=== PATIENT | male | born 1955 | race Caucasian/White ===

== ENCOUNTER → 2018-06-26 14:48 | Outpatient (CLI) | payer BC, SELFPAY ==
--- NOTE | 2018-06-26 15:02 | EKG12_ITS ---
Test Reason : PREOP Blood Pressure : / mmHG Vent. Rate : 059 BPM Atrial Rate : 059 BPM P-R Int : 156 ms QRS Dur : 086 ms QT Int : 428 ms P-R-T Axes : 064 -19 045 degrees QTc Int : 423 ms Sinus bradycardia Minimal voltage criteria for LVH, may be normal variant Borderline ECG Confirmed by ERWIN MITTAL ([id number]), publication editor SAMANTHA RAMIREZ ([id number]) on 06/30/2018 2:33:07 PM Referred By: Giovany Chao Confirmed By:ERWIN MITTAL
[2018-06-26 15:33] LABS: Hematocrit 42.6 % (40-54); Hemoglobin 14.3 g/dl (13.0-16.5); Mean Corp Hgb Conc 33.6 g/gl (32-36); Mean Corpuscular Hgb 30.6 pg (27.0-32.0); Mean Corpuscular Volume 91.2 fL (80-94); Mean Platelet Vol. 9.4 fl (6.2-12.0); Platelet Count 203 K/mm3 (150-450); RBC Distribution Width CV 12.9 % (11.6-14.6); RBC Distribution Width SD 42.8 fl (35.1-43.9); Red Blood Count 4.67 M/mm3 (4.6-6.2); White Blood Count 6.8 K/mm3 (4.4-11.0)
[2018-06-26 15:36] LABS: Scan Indicated on CBC? Y/N NO
[2018-06-26 16:00] LABS: Anion Gap 6 (5-15); BUN 32 mg/dL (7-18); BUN/Creat Ratio 27.1 RATIO (10-20); Calcium,Total 8.6 mg/dL (8.5-10.1); Chloride 105 mmol/L (98-107); Creatinine, Serum 1.18 mg/dL (0.70-1.30); EST Glomerular Filtration Rate 66 mL/min (>60); Est Glom Filt Rate - Afr Amer 80 mL/min (>60); Glucose 92 mg/dL (74-106); Potassium 4.3 mmol/L (3.5-5.1); Sodium Level 139 mmol/L (136-145)
== END ==
PROVIDERS: Referring Provider Physician Assistant; Visit Provider Physician Assistant
DX: Z01.818 Encounter for other preprocedural examination (principal); Z01.810 Encounter for preprocedural cardiovascular examination
CPT/HCPCS: 36415; 80048; 85027; 93005

== ENCOUNTER → 2018-12-12 13:54 | Outpatient (CLI) | payer OTHER, BC, SELFPAY ==
[2015-01-29 19:59] VITALS: BMI 24.7
--- NOTE | 2018-12-12 14:30 | EKG12_ITS ---
Test Reason : PRE OP Blood Pressure : / mmHG Vent. Rate : 049 BPM Atrial Rate : 049 BPM P-R Int : 142 ms QRS Dur : 100 ms QT Int : 424 ms P-R-T Axes : 025 -07 038 degrees QTc Int : 383 ms Sinus bradycardia Otherwise normal ECG Confirmed by ROBBY MARTÍNEZ, INEZ ([id number]), editor in chief newspaper SAMANTHA RAMIREZ ([id number]) on 12/15/2018 3:35:37 PM Referred By: Giovany Chao Confirmed By:INEZ BUSTAMANTE MD
[2018-12-12 14:50] LABS: Hematocrit 41.6 % (40-54); Hemoglobin 14.2 g/dl (13.0-16.5); Mean Corp Hgb Conc 34.1 g/gl (32-36); Mean Corpuscular Hgb 30.7 pg (27.0-32.0); Mean Platelet Vol. 9.4 fl (6.2-12.0); Platelet Count 189 K/mm3 (150-450); RBC Distribution Width CV 12.8 % (11.6-14.6); RBC Distribution Width SD 42.2 fl (35.1-43.9); Red Blood Count 4.62 M/mm3 (4.6-6.2); White Blood Count 5.1 K/mm3 (4.4-11.0)
[2018-12-12 14:55] LABS: Scan Indicated on CBC? Y/N NO
[2018-12-12 15:06] LABS: Anion Gap 3 (5-15); BUN 27 mg/dL (7-18); BUN/Creat Ratio 22.3 RATIO (10-20); Calcium,Total 8.5 mg/dL (8.5-10.1); Chloride 108 mmol/L (98-107); Creatinine, Serum 1.21 mg/dL (0.70-1.30); EST Glomerular Filtration Rate 64 mL/min (>60); Est Glom Filt Rate - Afr Amer 78 mL/min (>60); Glucose 92 mg/dL (74-106); Potassium 4.3 mmol/L (3.5-5.1); Sodium Level 139 mmol/L (136-145)
== END ==
PROVIDERS: Referring Provider Physician Assistant; Visit Provider Physician Assistant
DX: Z01.818 Encounter for other preprocedural examination (principal); Z01.810 Encounter for preprocedural cardiovascular examination
CPT/HCPCS: 36415; 80048; 85027; 93005

== ENCOUNTER 2021-03-03 14:20 | Emergency (ER) | payer BC, SELFPAY ==
[2021-03-03 14:21] VITALS: BP 149/94; PULSE 67; RESP 16; TEMP 36.3; O2SAT 98; BMI 27.2
--- NOTE | 2021-03-03 14:42 | EDS_ITS ---
HPI History of Present Illness Chief Complaint: Wound Narrative Narrative: Patient presented with 2 days of erythema and pain on the left gluteal region. Patient denies any trauma. Patient states he woke up with the redness. Patient showed his daughter who stated he might have been bitten by a spider. He states he is otherwise healthy and runs every day. He feels fine physically. No fever or chills. No history of MRSA. PFSH PFSH Home Medications hydrocodone-acetaminophen 1 tab PO Q4H PRN PRN #10 tablet 12/30/14 [Rx Last Taken Unknown] etodolac 300 mg PO TIDCM #30 capsule 01/29/15 [Rx Last Taken Unknown] cephalexin 1,000 mg PO Q6H 7 Days #56 cap 03/03/21 [Rx Last Taken Unknown] Allergy/AdvReac Type Severity Reaction Status Date / Time No Known Allergies Allergy Verified 03/03/21 14:23 Social History Smoking Status: Former smoker EXAM Physical Exam Const Vital Signs: 03/03/21 14:21 Temperature 97.3 F L Temperature Source Temporal Pulse Rate 67 Respiratory Rate 16 Blood Pressure 149/94 H Blood Pressure Mean 112 Pulse Ox 98 Oxygen Delivery Method Room Air Positive well nourished General Appearance ED: NAD HEENT Reports moist mucous membranes Negative for trauma Eyes PERRL and EOMs intact bilaterally Resp normal respiratory effort, no retractions and no use of accessory muscles Cardio regular rate and regular rhythm Neuro oriented x3 and CN's II-XII intact bilaterally Sensorium / Orientation: alert Psych mental status grossly normal Skin Skin Narrative: 5 cm circular area of erythema and induration on the left g luteal region. There is no fluctuant mass. MDM MDM MDM Narrative Medical decision making narrative: Patient has cellulitis on the left gluteal region. He does not have any allergies to medication. No history of MRSA. He be started on Keflex for home. Patient given first dose in the ED. Patient given wound care instructions and return precautions. Impression: 1. Left gluteal cellulitis Discharge Plan Triage Chief Complaint: Wound ED Provider: Ulises Gonzalez Dx/Rx/DC Orders Instructions: ED Cellulitis Prescriptions: New cephalexin 500 mg capsule 1,000 mg PO Q6H 7 Days Qty: 56 RF: 0 No Action hydrocodone-acetaminophen 1 TABLET tablet 1 tab PO Q4H PRN PRN (Reason: Pain) Qty: 10 RF: 0 etodolac 300 MG capsule 300 mg PO TIDCM Qty: 30 RF: 0 Primary Care Provider: Care Physician,No Primary Referrals: Care Physician,No Primary [Primary Care Provider] - Disposition Disposition: Home, Self Care
[2021-03-03] MEDS: Cephalexin 250 MG Capsule 500 MG PO (14:44)
== END 2021-03-03 15:02 | disposition home or self-care (01) ==
LOC: ED 14:51
PROVIDERS: Emergency Provider Student in an Organized Health Care Education/Training Program
DX: L03.317 Cellulitis of buttock (principal); Z87.891 Personal history of nicotine dependence
CPT/HCPCS: 99283

== ENCOUNTER 2024-08-09 09:02 | Emergency (ER) | payer OTHER, BC, SELFPAY ==
[2024-08-09 09:02] VITALS: BP 171/95; PULSE 58; RESP 19; TEMP 36.3; O2SAT 100; BMI 30.6
--- NOTE | 2024-08-09 09:17 | EDS_ITS ---
HPI History of Present Illness Chief Complaint: Flank Pain Informant: patient Onset/Context/Timing Onset: Yesterday Context: Sudden Onset Timing: Continuous Quality: Sharp, stabbing Location: Right flank Worsened by: Movement, standing Relieved by: Nothing Narrative Narrative: Patient presents with right flank pain began yesterday. Patient states it began rather suddenly. Patient states it has been constant. Patient describes it as sharp and stabbing. Patient states it is worse with certain movements such as standing. Patient states nothing seems to help with the pain. Patient denies any trauma or injury. Patient denies any fevers or chills. Patient denies any nausea or vomiting. Patient denies any urinary complaints. [facility] Medical History (Updated 08/09/24 @ 11:[address] Talat Hayden DO) Atrial fibrillation Hypertension Home Medications ?Medication ?Instructions ?Recorded ?Last Taken ?Type amlodipine 5 mg tablet 5 mg PO DAILY 08/09/24 Unknown History atorvastatin 10 mg tablet 10 mg PO DAILY 08/09/24 Unknown History lisinopril 20 mg tablet 20 mg PO DAILY 08/09/24 Unknown History rivaroxaban 20 mg tablet (Xarelto) 20 mg PO DAILY 08/09/24 Unknown History Allergy/AdvReac Type Severity Reaction Status Date / Time No Known Allergies Allergy Verified 03/03/21 14:23 Surgical History Hx of hemorrhoidectomy Hx of arthroscopic knee surgery Hx of shoulder surgery Social History Smoking Status: Never smoker ROS ROS ED Constitutional Constitutional ED: Denies chills or fever(s) Eyes Eyes: Denies blurry vision or change in vision ENT ENT ED: Denies rhinorrhea or sore throat Cardiovascular Cardiovascular: Denies chest pain or palpitations Respiratory/Chest Respiratory/Chest: Denies cough or dyspnea Gastrointestinal Gastrointestinal: Denies nausea or vomiting Genitourinary Genitourinary ED: Denies dysuria or hematuria Musculoskeletal Musculoskeletal: Reports back pain and neck pain Integumentary Denies abscess or rash Neurologic Neurologic: Denies headache(s) or weakness Allergic/Immunologic Allergic/Immunologic ED: Denies mouth swelling or urticaria EXAM Physical Exam Const Vital Signs: 08/09/24 09:02 08/09/24 11:02 Temperature 97.4 F L Temperature Source Temporal Pulse Rate 58 L 89 Respiratory Rate 19 H Blood Pressure 171/95 H 167/86 H Blood Pressure Mean 120 113 Pulse Ox 100 98 Positive well nourished and well developed General Appearance ED: well developed and NAD HEENT Reports moist mucous membranes Neck supple and no JVD Resp normal respiratory effort and clear to auscultation bilaterally Cardio regular rate and regular rhythm GI non-tender and non-distended Palpation: soft Extremity General Extremety ED: Negative for edema or tenderness General Extremity: Negative for edema Neuro oriented x3, CN's II-XII intact bilaterally and no sensory deficits noted Sensorium / Orientation: alert Motor Exam: strength 5/5 throughout Psych mental status grossly normal MDM MDM MDM Narrative Medical decision making narrative: Differential diagnosis includes ureteral calculus, pyelonephritis, cholecystitis, cholelithiasis, colitis, and muscular strain. CBC will be obtained to assess for leukocytosis and anemia. Comprehensive metabolic profile will be obtained to assess for hepatic function, renal function, and electrolyte abnormality. Urinalysis will be obtained to assess for urinary tract infection and hematuria. CT scan of the abdomen and pelvis will be obtained to assess for ureteral calculus, colitis, cholecystitis, and cholelithiasis. Lab Data Attestation: I reviewed the patient's lab results. Lab results narrative: CBC was reviewed and was within normal limits. Comprehensive metabolic profile was reviewed. BUN was slightly elevated at 27. The remainder is within normal limits. Lipase was reviewed and was mildly elevated at 127. Urinalysis was reviewed. There is no evidence of urinary tract infection or hematuria. Labs: Laboratory Results - last 24 hr 08/09/24 08/09/24 09:13 09:35 WBC 6.9 RBC 4.69 Hgb 14.6 Hct 42.6 MCV 90.8 MCH 31.1 MCHC 34.3 RDW Std Deviation 42.4 RDW Coeff of [place] 12.9 Plt Count 223 MPV 9.4 Immature Gran % (Auto) 0.100 Neut % (Auto) 50.6 Lymph % (Auto) 34.2 [place] % (Auto) 10.1 H Eos % (Auto) 4.3 Baso % (Auto) 0.7 Absolute Neuts (auto) 3.5 Absolute Lymphs (auto) 2.36 Nucleated RBC % 0 Sodium 139 Potassium 4.4 Chloride 106 Carbon Dioxide 27.0 Anion Gap 6 BUN 27 H Creatinine 1.11 Estim Creat Clear Calc 73.34 Est GFR (MDRD) Af Amer 84 Est GFR (MDRD) Non-Af 70 BUN/Creatinine Ratio 24.3 H Glucose 101 Calcium 8.7 Total Bilirubin 0.90 AST 24 ALT 30 Alkaline Phosphatase 63 Total Protein 7.0 Albumin 3.6 Globulin 3.4 Albumin/Globulin Ratio 1.1 Lipase 127 H Urine Color Yellow Urine Clarity Clear Urine pH 6.0 Ur Specific [place] 1.020 Urine Protein Negative Urine Glucose (UA) Normal Urine Ketones Negative Urine Occult Blood Negative Urine Nitrite Negative Urine Bilirubin Negative Urine Urobilinogen Normal Ur Leukocyte Esterase Negative Urine RBC 0 SEEN Urine WBC 0 SEEN Ur Squamous Epith Cells 0 SEEN Amorphous Sediment 1+ Urine Bacteria 1+ Urine Mucus 0 SEEN Radiography Diagnostic Testing: Clinical Impression(s) from Imaging Studies Abdomen/Pelvis CT 08/09/24 09:23 IMPRESSION: No suspicious solid organ abnormality, specifically, no obstructive uropathy or suspicious solid renal lesion. No free peritoneal fluid, air, or suspicious adenopathy, normal appendix visualized Degenerative bony changes Electronically Signed: Musa Lyon MD at 10:33 EST Reading Location ID and State: [id number] , Service support , CT scan of the abdomen and pelvis was obtained. There is no acute abnormality noted. There is no free air or free fluid. There are some degenerative bony changes. This was interpreted by the radiologist and was also independently reviewed by myself. Treatment and Re-Evaluation :: Patient was given IV fluids, morphine, and Zofran. Patient was advised of his findings. Patient was advised that this could be a early pancreatitis. Patient was instructed to start with a clear liquid diet and advance as tolerated. Patient was instructed to follow-up with his primary care physician in 5 to 7 days. Patient understood and was agreeable with the plan. All questions were answered. Discharge Plan Triage Chief Complaint: Flank Pain ED Provider: Talat Hayden Dx/Rx/DC Orders Clinical Impression: Acute right flank pain, Elevated lipase Instructions: ED Flank Pain, Uncertain Cause, ED Pancreatitis Prescriptions: No Action atorvastatin 10 mg tablet 10 mg PO DAILY lisinopril 20 mg tablet 20 mg PO DAILY amlodipine 5 mg tablet 5 mg PO DAILY Xarelto 20 mg tablet 20 mg PO DAILY [facility] [Primary Care Provider] - 5-7 Days Print Language: Austrian Disposition Disposition: Home, Self Care
--- NOTE | 2024-08-09 09:23 | CT_ITS ---
STUDY: CT ABDOMEN AND PELVIS WITHOUT CONTRAST REASON FOR EXAM: Male, 68 years old. Pain RADIATION DOSAGE (If Supplied By Facility): CTDIvol = ( 11.94 ) mGy, DLP = ( 581.47 ) mGycm TECHNIQUE: Transaxial images were obtained from the dome of the diaphragm to the symphysis pubis without oral contrast, and without intravenous contrast. Sagittal and coronal images were reconstructed. Individualized dose optimization techniques were used for this CT. COMPARISON: 2012 FINDINGS: Lung molina show stable fibrotic scar in the right middle lobe. The visualized portions of the heart are within normal limits. Normal liver. Normal gallbladder and extrahepatic biliary system. Normal spleen. Normal pancreas. Normal bilateral adrenal glands. Normal right kidney. Normal left kidney. There is a small hiatal hernia. Normal small intestine. Normal colon. The appendix is visualized and appears normal. Appendix seen on coronal recon images 65 through 72 Normal abdominal aorta. Normal inferior vena cava. Normal retroperitoneum. Normal urinary bladder. There are prostatic calcifications. Normal abdominal wall. There are diffuse degenerative changes of the visualized lumbar spine, and pelvis. CT/Abdomen/Pelvis without Cont IMPRESSION: No suspicious solid organ abnormality, specifically, no obstructive uropathy or suspicious solid renal lesion. No free peritoneal fluid, air, or suspicious adenopathy, normal appendix visualized Degenerative bony changes Electronically Signed: Musa Lyon MD at 10:33 EST ,
[2024-08-09] MEDS: Ondansetron 4 MG/2 ML Vial IV (09:34)
[2024-08-09] MEDS: 0.9% Normal Saline (1000mL) 1,000 ML 999 ML IV (09:34)
[2024-08-09] MEDS: Morphine 4 MG/ML Syringe IV (09:34)
[2024-08-09 09:43] LABS: Absolute Lymphocyte Count 2.36 X10^3/uL (0.83-4.51); Absolute Neutrophil Count 3.5 X10^3/uL (2.0-7.7); Basophil# 0.05 X10^3/uL; Basophil% 0.7 % (0-1); Eosinophils% 4.3 % (0-5); Hematocrit 42.6 % (40-54); Hemoglobin 14.6 g/dL (13.0-16.5); Lymphocyte # 2.36 X10^3/ul (0.83-4.51); Lymphocyte % 34.2 % (19-41); Mean Corp Hgb Conc 34.3 g/dL (32-36); Mean Corpuscular Hgb 31.1 pg (27.0-32.0); Mean Corpuscular Volume 90.8 fL (80-94); Mean Platelet Vol. 9.4 fl (6.2-12.0); Monocyte% 10.1 % (0-10); NRBC Flagged by Analyzer 0 % (0-5); Neutrophil # 3.48 X10^3/uL (2.7-7.7); Neutrophil % 50.6 % (47-70); Platelet Count 223 K/mm3 (150-450); RBC Distribution Width CV 12.9 % (11.6-14.6); RBC Distribution Width SD 42.4 fl (35.1-43.9); Red Blood Count 4.69 M/mm3 (4.6-6.2); White Blood Count 6.9 K/mm3 (4.4-11.0)
[2024-08-09 09:47] LABS: Mucous, Urine 0 SEEN /hpf (<or=2+); Red Blood Cells-Urine 0 SEEN /hpf (0-5); Squamous Epithelial Cells - UA 0 SEEN /hpf (0-5); White Blood Cells 0 SEEN /hpf (0-5)
[2024-08-09 09:50] LABS: Color, Urine Yellow (Yellow); Glucose, Dipstick Normal (Normal); Ketone-Dipstick Negative (Negative); Leukocyte Esterase-Dipstick Negative /ul (Negative); Nitrite-Dipstick Negative (Negative); Occult Blood-Urine Negative /ul (Negative); Protein-Dipstick Negative (Negative); Urine Bilirubin Dipstick Negative (Negative); Urine Clarity Clear (Clear); Urine Urobilinogen Normal (Normal)
[2024-08-09 09:55] LABS: ALB/GLOB Ratio 1.1 RATIO (0.9-2.4); AST(SGOT) 24 U/L (15-37); Alanine Aminotransfer ALT/SGPT 30 U/L (16-61); Albumin, Serum 3.6 g/dL (3.2-5.0); Alkaline Phosphatase 63 U/L (45-117); Anion Gap 6 (5-15); BUN 27 mg/dL (7-18); BUN/Creat Ratio 24.3 RATIO (10-20); Calcium,Total 8.7 mg/dL (8.5-10.1); Chloride 106 mmol/L (98-107); Creatinine, Serum 1.11 mg/dL (0.70-1.30); EST Glomerular Filtration Rate 70 mL/min (>60); Est Glom Filt Rate - Afr Amer 84 mL/min (>60); Estimated Creatinine Clearance 73.34 ml/min; Globulin 3.4 g/dL (2.2-4.2); Glucose 101 mg/dL (74-106); Lipase 127 U/L (13-75); Potassium 4.4 mmol/L (3.5-5.1); Sodium Level 139 mmol/L (136-145)
[2024-08-09 10:00] LABS: Amorphous Sediment 1+; Bacteria 1+ /hpf (None Seen)
[2024-08-09 11:02] VITALS: BP 167/86; PULSE 89; O2SAT 98
[2024-08-09] MEDS: HYDROcodone Bitartrate/Apap 5/325 Tablet PO (11:52)
[2024-08-09 11:53] VITALS: BP 167/86; PULSE 89; RESP 16; TEMP 36.6; O2SAT 98
== END 2024-08-09 11:55 | disposition home or self-care (01) ==
PROVIDERS: Emergency Provider Emergency Medicine; Visit Provider Emergency Medicine
DX: R10.9 Unspecified abdominal pain (principal); I48.91 Unspecified atrial fibrillation; R74.8 Abnormal levels of other serum enzymes; I10 Essential (primary) hypertension; Z79.01 Long term (current) use of anticoagulants; Z79.899 Other long term (current) drug therapy
CPT/HCPCS: 74176; 80053; 81001; 83690; 85025; 96361; 96374; 96375; 99283; A4216; J2405

== ENCOUNTER → 2024-09-18 | Outpatient (CLI) | payer BC, SELFPAY ==
[2024-09-18 10:55] LABS: Absolute Lymphocyte Count 2.38 X10^3/uL (0.83-4.51); Absolute Neutrophil Count 3.4 X10^3/uL (2.0-7.7); Basophil# 0.05 X10^3/uL; Basophil% 0.8 % (0-1); Eosinophil# 0.22 X10^3/uL; Eosinophils% 3.4 % (0-5); Hemoglobin 14.3 g/dL (13.0-16.5); Lymphocyte # 2.38 X10^3/ul (0.83-4.51); Lymphocyte % 36.3 % (19-41); Mean Corp Hgb Conc 34.9 g/dL (32-36); Mean Corpuscular Volume 88.9 fL (80-94); Mean Platelet Vol. 8.9 fl (6.2-12.0); Monocyte# 0.53 X10^3/uL; Monocyte% 8.1 % (0-10); NRBC Flagged by Analyzer 0 % (0-5); Neutrophil # 3.36 X10^3/uL (2.7-7.7); Neutrophil % 51.1 % (47-70); Platelet Count 231 K/mm3 (150-450); RBC Distribution Width CV 12.6 % (11.6-14.6); RBC Distribution Width SD 40.9 fl (35.1-43.9); Red Blood Count 4.61 M/mm3 (4.6-6.2); White Blood Count 6.6 K/mm3 (4.4-11.0)
[2024-09-18 11:31] LABS: Anion Gap 5 (5-15); BUN 21 mg/dL (7-18); BUN/Creat Ratio 21.4 RATIO (10-20); Calcium,Total 8.8 mg/dL (8.5-10.1); Chloride 108 mmol/L (98-107); Creatinine, Serum 0.98 mg/dL (0.70-1.30); EST Glomerular Filtration Rate 80 mL/min (>60); Est Glom Filt Rate - Afr Amer 97 mL/min (>60); Glucose 99 mg/dL (74-106); Potassium 4.2 mmol/L (3.5-5.1); Sodium Level 139 mmol/L (136-145)
== END | disposition home or self-care (01) ==
PROVIDERS: Referring Provider Physician Assistant Surgical; Visit Provider Physician Assistant Surgical
DX: Z01.818 Encounter for other preprocedural examination (principal)
CPT/HCPCS: 36415; 80048; 85025

== ENCOUNTER 2024-11-14 19:47 | Emergency (ER) | payer OTHER, SELFPAY ==
[2024-11-14 19:48] VITALS: BP 165/89; PULSE 79; RESP 16; TEMP 36.8; O2SAT 98; BMI 31.1
--- NOTE | 2024-11-14 20:09 | EDS_ITS ---
HPI HPI - URI History of Present Illness Chief Complaint: Ear Problem Informant: patient and spouse/S.O. Onset/Context/Timing Onset: Today Context: Gradual Onset Timing: Continuous Current Severity: Mild Maximum Severity: Mild Narrative Narrative: 68-year-old male history of A-fib on Xarelto, hypertension and recent left shoulder rotator cuff repair surgery. Since the night around dinner around 6:00 he developed right ear pain. Denies any trauma. No drainage or discharge. Said he has not had an ear infection since he was a young boy. Denies any other complaints. No sore throat. No trouble swallowing. No cough. Prior similar symptoms: Yes Recent Illness/Hospitalization: No ROS ROS ED ROS Narrative Right ear ache only. Constitutional Constitutional ED: Denies chills or fever(s) Eyes Eyes: Denies blurry vision ENT ENT ED: Denies ear pain, rhinorrhea or sore throat Cardiovascular Cardiovascular: Denies chest pain or palpitations Respiratory/Chest Respiratory/Chest: Denies cough, dyspnea or dyspnea on exertion Gastrointestinal Gastrointestinal: Denies abdominal pain, constipation, diarrhea, melena, nausea or vomiting Genitourinary Genitourinary ED: Denies dysuria or hematuria Musculoskeletal Musculoskeletal: Denies arthralgias, back pain, myalgias or neck pain Integumentary Denies abscess, Abrasions or rash Neurologic Neurologic: Denies headache(s) Psychiatric Psychiatric: Denies anxiety or depression Endocrine Endocrinology: Denies cold intolerance, heat intolerance, polydipsia or polyphagia Hematologic/Lymphatic Hematologic/Lymphatic: Denies lymphadenopathy Allergic/Immunologic Allergic/Immunologic ED: Reports urticaria; Denies mouth swelling or tongue swelling [facility] Medical History Atrial fibrillation Hypertension Home Medications ?Medication ?Instructions ?Recorded ?Last Taken ?Type amlodipine 5 mg tablet 5 mg PO DAILY 08/09/24 Unkno wn History atorvastatin 10 mg tablet 10 mg PO DAILY 08/09/24 Unkn own History lisinopril 20 mg tablet 20 mg PO DAILY 08/09/24 Unkn own History rivaroxaban 20 mg tablet (Xarelto) 20 mg PO DAILY 07/20 10/12 Unknown History amoxicillin 875 mg tablet 875 mg PO BID 10 days #20 ta bs 11/14/24 Unknown Rx Allergy/AdvReac Type Severity Reaction Status Date / Time No Known Allergies Allergy Verified 11/14/24 19:48 Surgical History Hx of hemorrhoidectomy Hx of arthroscopic knee surgery Hx of shoulder surgery Social History Smoking Status: Never smoker EXAM Physical Exam Narrative Exam Narrative: Well-appearing 68-year-old male. Sitting upright in bed. No distress. Vital signs stable afebrile. HEENT exam pupils round reactive light. Posterior pharynx normal. Moist mucous membranes. No erythema. No exudate. No trouble swallowing. Left TM and canal normal. Right TM erythematous and dull no perforation. Canal unremarkable. Some wax. Neck nontender. No lymphadenopathy. Eustachian tube nontender. Lungs clear to auscultation. Heart A-fib rate about 80. Chest wall and ribs nontender. Abdomen soft nontender. Moving all 4 extremities. Nontender no edema. Left arm is in a sling from recent rotator cuff surgery. Normal rodbuster strength. Normal dorsi plantarflexion. Neurologically is awake and alert. Answering questions following commands. No focal motor deficits. Const Vital Signs: 11/14/24 19:48 Temperature 98.3 F Temperature Source Oral Pulse Rate 79 Respiratory Rate 16 Blood Pressure 165/89 H Blood Pressure Mean 114 Pulse Ox 98 Oxygen Delivery Method Room Air Positive well nourished and well developed; Negative for cachectic or contractures General Appearance ED: well developed and NAD; Negative for cachectic, contractures, cyanotic, diaphoretic or pallor Nutritional Appearance: Negative for cachectic HEENT Reports moist mucous membranes HEENT Narrative: Right otitis media. Canal unremarkable. Some wax. TM intact no perforation. No blood. Red and dull. normocephalic and atraumatic Throat: posterior oropharynx normal Eyes PERRL and EOMs intact bilaterally Neck no lymphadenopathy, supple, no meningeal signs and no JVD Resp normal respiratory effort and clear to auscultation bilaterally Cardio S1 normal heart sound, S2 normal heart sound and no murmurs Cardio Narrative: A-fib rate 80. GI non-tender, non-distended and no masses Back/Spine no CVA tenderness and normal ROM Extremity normal to inspection Extremity Narrative: Nontender. Normal strength. Left arm in a sling from recent rotator cuff surgery. Neuro oriented x3 and CN's II-XII intact bilaterally Sensorium / Orientation: alert, oriented to person, oriented to place and oriented to time Motor Exam: strength 5/5 throughout Psych mental status grossly normal Attitude: No agitated Mood & Affect: Negative for depressed, anxious or tearful Skin General Skin Exam: Negative for jaundice or pallor Lesions: no lesions Rashes: no rashes Trauma: Negative for abrasion or laceration MDM MDM MDM Narrative Medical decision making narrative: 68-year-old male right ear pain tonight looks like otitis media. Canal unremarkable. Will be placed on amoxicillin 875 twice daily first dose given in the ER. Treated for 10 days. Outpatient follow-up with not improving. Discharge Plan Triage Chief Complaint: Ear Problem ED Provider: Addy Fleming Dx/Rx/DC Orders Clinical Impression: Acute right otitis media, History of atrial fibrillation, Chronic anticoagulation Instructions: ED Otitis Media Adult Prescriptions: New amoxicillin 875 mg tablet 875 mg PO BID 10 Days Qty: 20 0RF No Action atorvastatin 10 mg tablet 10 mg PO DAILY lisinopril 20 mg tablet 20 mg PO DAILY amlodipine 5 mg tablet 5 mg PO DAILY Xarelto 20 mg tablet 20 mg PO DAILY [facility]Primary [facility] Provider] - 1 Week if not improving Activity Restrictions/Additional Instructions: Right ear infection of the eardrum. Otitis media. Tylenol for pain. The amoxicillin twice a day for 10 days. Follow-up with your doctor return if not improving or getting worse. Print Language: Ethiopian Disposition Disposition: Home, Self Care
[2024-11-14] MEDS: AMOXICILLIN 500 MG CAPSULE PO (20:14)
== END 2024-11-14 20:17 | disposition home or self-care (01) ==
LOC: ED 20:10
PROVIDERS: Emergency Provider Emergency Medicine; Visit Provider Emergency Medicine
DX: H66.91 Otitis media, unspecified, right ear (principal); I48.91 Unspecified atrial fibrillation; I10 Essential (primary) hypertension; Z79.01 Long term (current) use of anticoagulants; Z79.899 Other long term (current) drug therapy
CPT/HCPCS: 99282

== ENCOUNTER 2024-11-28 18:46 | Emergency (ER) | payer OTHER, SELFPAY ==
[2024-11-28 18:47] VITALS: BP 115/69; PULSE 53; RESP 16; TEMP 36.6; O2SAT 97; BMI 30.4
--- NOTE | 2024-11-28 18:59 | EX.ED.DYSGE1 ---
HPI <DAVID Saunders - Last Filed: 11/28/24 21:10> History of Present Illness Chief Complaint: Ear Problem Narrative Narrative: 68-year-old male developed right ear pain around November 14. No trauma. No drainage or discharge. He was seen at [facility] that day and diagnosed with right otitis media. He finished the amoxicillin 875 twice daily for 10 days without improvement in symptoms. He followed up with urgent care and was prescribed cefdinir and took several days of this. He saw his primary care doctor who told him to discontinue cefdinir and start p.o. Levaquin and neomycin/polymyxin eardrops which she has been on for 5 days. He was told if his symptoms did not improve after 5 days to be reevaluated which is why he is here. He said no fever or chills. He has occasional ringing in both ears. No hearing loss. [facility] <DAVID Saunders - Last Filed: 11/28/24 21:10> [facility] Medical History Atrial fibrillation Hypertension Home Medications ?Medication ?Instructions ?Recorded ?Last Taken ?Type amlodipine 5 mg tablet 5 mg PO DAILY 08/09/24 Unknown History atorvastatin 10 mg tablet 10 mg PO DAILY 08/09/24 Unknown History lisinopril 20 mg tablet 20 mg PO DAILY 08/09/24 Unknown History rivaroxaban 20 mg tablet (Xarelto) 20 mg PO DAILY 08/09/24 Unknown History amoxicillin 875 mg tablet 875 mg PO BID 10 days #20 tabs 11/14/24 Unknown Rx Allergy/AdvReac Type Severity Reaction Status Date / Time No Known Allergies Allergy Verified 11/28/24 18:47 Surgical History Hx of hemorrhoidectomy Hx of arthroscopic knee surgery Hx of shoulder surgery Social History Smoking Status: Never smoker ROS <DAVID Saunders - Last Filed: 11/28/24 21:10> ROS ED ROS Narrative Constitutional: Negative for fever, chills, malaise. ENT: Positive for ear pain. Neuro: Negative for headache. EXAM <DAVID Saunders - Last Filed: 11/28/24 21:10> Physical Exam Narrative Exam Narrative: CONST: Patient sitting in no acute distress. EYES: Normal inspection. ENT: External ears appear normal. No tenderness of the right tragus or auricle, normal mastoid without swelling tenderness or erythema. Ear canal is mildly swollen without discharge. TM is pearly white without perforation. Left TM also appears normal. NECK: Normal inspection. RESP: No respiratory distress, CTAB. CVS: Regular rate and rhythm, no murmur, no gallop. SKIN: Color normal, no rash, warm, dry, intact. EXTREMITIES: Normal appearance, no pedal edema. NEURO: Alert and answering questions appropriately. PSYCH: Normal affect. Const Vital Signs: 11/28/24 18:47 11/28/24 19:14 Temperature 97.8 F 97.8 F Temperature Source Temporal Pulse Rate 53 L 75 Respiratory Rate 16 17 Blood Pressure 115/69 149/94 H Blood Pressure Mean 84 112 Pulse Ox 97 97 Oxygen Delivery Method Room Air <Dr. Addy Fleming MD - Last Filed: 11/28/24 19:15> Physical Exam Const Vital Signs: 11/28/24 18:47 11/28/24 19:14 Temperature 97.8 F 97.8 F Temperature Source Temporal Pulse Rate 53 L 75 Respiratory Rate 16 17 Blood Pressure 115/69 149/94 H Blood Pressure Mean 84 112 Pulse Ox 97 97 Oxygen Delivery Method Room Air MDM <DAVID Saunders - Last Filed: 11/28/24 21:10> [facility] MDM Narrative Medical decision making narrative: Differential includes but not limited to: Otitis externa, otitis media, perforated eardrum, mastoiditis 69-year-old male took several antibiotics for right otitis media and now presents with some persistent pain but also complains of intermittent tinnitus and buzzing. He appears well and nontoxic. Afebrile and hemodynamically stable. Right ear canal is minimally swollen but the TM appears normal. There is no sign of infection or perforation. No evidence of mastoiditis. He has already completed 10 days of amoxicillin, a few days of cefdinir, and 5 days of Levaquin. I recommended he discontinue oral antibiotics as there is no sign of otitis media. He should continue the eardrops for external as there is slight swelling. He does not require a wick. I referred him to ENT and he was discharged in stable condition. I have personally performed a face to face assessment of the patient and have reviewed the BRADY Note. I performed a substantive portion of the visit including all aspects of the following. My tavares findings include: History is [6-year-old male about 2 weeks ago was seen here at that time had otitis media. He had a red retracted eardrum. He was placed on amoxicillin twice daily. Send bleeding get better he has noticed some buzzing in his ear and decreased hearing. He has been seen in follow-up and placed on 2 different oral antibiotics which he has finished. He said still not any better. He was also placed on eardrops. He is complaining of a lot of buzzing in his ear and decreased hearing in the right ear. Denies any sore throat. The left ear is not bothering him. Denies any trauma, bleeding or discharge from his ear.] Exam is [well-appearing 69-year-old male. Vital signs stable afebrile. H EENT exam pupils round react to light. Left TM and canal normal. Right TM is normal is no longer red is not retracted is not perforated. The canal is minimally swollen. There is no obstruction. There is currently no fluid or wax or foreign body. There may be a mild otitis externa. Neck nontender. Mastoids nontender. No eustachian tube tenderness. No lymphadenopathy. Lungs clear. Heart regular rhythm rate about 55-60. Chest wall and ribs nontender. Abdomen soft nontender. Back nontender. Neurologically is awake and alert no focal motor deficits. Answering questions following commands.] Medical Decision Making [patient may have a mild otitis externa in the right ear canal. There is no otitis media currently. The buzzing in his right ear needs further evaluation by ENT which he will be referred to. He will stop all the oral antibiotics. He will continue the eardrops. Patient is comfortable with the plan.] Other additions or changes: [None] <Dr. Addy Fleming MD - Last Filed: 11/28/24 19:15> [facility] Narrative Medical decision making narrative: I have personally performed a face to face assessment of the patient and have reviewed the BRADY Note. I performed a substantive portion of the visit including all aspects of the following. My tavares findings include: History is [6-year-old male about 2 weeks ago was seen here at that time had otitis media. He had a red retracted eardrum. He was placed on amoxicillin twice daily. Send bleeding get better he has noticed some buzzing in his ear and decreased hearing. He has been seen in follow-up and placed on 2 different oral antibiotics which he has finished. He said still not any better. He was also placed on eardrops. He is complaining of a lot of buzzing in his ear and decreased hearing in the right ear. Denies any sore throat. The left ear is not bothering him. Denies any trauma, bleeding or discharge from his ear.] Exam is [well-appearing 69-year-old male. Vital signs stable afebrile. H EENT exam pupils round react to light. Left TM and canal normal. Right TM is normal is no longer red is not retracted is not perforated. The canal is minimally swollen. There is no obstruction. There is currently no fluid or wax or foreign body. There may be a mild otitis externa. Neck nontender. Mastoids nontender. No eustachian tube tenderness. No lymphadenopathy. Lungs clear. Heart regular rhythm rate about 55-60. Chest wall and ribs nontender. Abdomen soft nontender. Back nontender. Neurologically is awake and alert no focal motor deficits. Answering questions following commands.] Medical Decision Making [patient may have a mild otitis externa in the right ear canal. There is no otitis media currently. The buzzing in his right ear needs further evaluation by ENT which he will be referred to. He will stop all the oral antibiotics. He will continue the eardrops. Patient is comfortable with the plan.] Other additions or changes: [None] History & Record Review Discussion w/independent historian: Patient and Family Additional record(s) reviewed:: Prior inpatient record, Prior outpatient record, Prior ED visit and Prior labs Discharge Plan Triage Chief Complaint: Ear Problem ED Midlevel Provider: Francia Rankin ED Provider: Addy Fleming Dx/Rx/DC Orders Clinical Impression: Acute pain of right ear Instructions: Anatomy of the Ear Prescriptions: No Action atorvastatin 10 mg tablet 10 mg PO DAILY lisinopril 20 mg tablet 20 mg PO DAILY amlodipine 5 mg tablet 5 mg PO DAILY Xarelto 20 mg tablet 20 mg PO DAILY amoxicillin 875 mg tablet 875 mg PO BID 10 Days Qty: 20 0RF Primary Care Provider: [facility] Referrals: Alon Figueredo MD [Med Staff - Courtesy Staff] - [facility] [Primary Care Provider] - Activity Restrictions/Additional Instructions: Continue the antibiotic drops as prescribed and call the ENT doctor for an appointment for further evaluation. Print Language: Welsh Disposition Disposition: Home, Self Care Discharge Date/Time: 11/28/24 19:21
[2024-11-28 19:14] VITALS: BP 149/94; PULSE 75; RESP 17; TEMP 36.6; O2SAT 97
== END 2024-11-28 19:21 | disposition home or self-care (01) ==
PROVIDERS: Emergency Provider Emergency Medicine; Visit Provider Emergency Medicine
DX: H92.01 Otalgia, right ear (principal); I48.91 Unspecified atrial fibrillation; I10 Essential (primary) hypertension; Z79.01 Long term (current) use of anticoagulants; Z79.899 Other long term (current) drug therapy
CPT/HCPCS: 99282

== ENCOUNTER 2025-03-31 22:10 | Emergency (ER) | payer OTHER, SELFPAY ==
[2025-03-31 22:10] VITALS: BP 162/91; PULSE 69; RESP 16; TEMP 36.7; O2SAT 98; BMI 31.7
--- NOTE | 2025-03-31 22:27 | EDS_ITS ---
HPI HPI - URI History of Present Illness Chief Complaint: Cough Informant: patient Onset/Context/Timing Onset: Yesterday Context: Sudden Onset Timing: Continuous Quality: Nonproductive cough Location: Chest Worsened by: - (Laying down) Relieved by: - (Nothing) Associated Symptoms Associated Symptoms: Positive for Nonproductive cough; Negative for Nasal Congestion, Headache, Sinus Pressure, Myalgias, Nausea, Vomiting, Diarrhea, Shortness of Breath, Chest Pain, Hemoptysis or Productive Cough Narrative Narrative: Patient presents with cough that began yesterday. Patient states it began rather suddenly. Patient states it has been constant. Patient denies any sputum production. Patient denies any fevers or chills. Patient states he has been exposed to grandchild who was diagnosed with croup and pertussis. Patient states his cough is worse when he lays down at night. Patient denies any rhinorrhea or nasal congestion. Patient mitts to mild sore throat and hoarse voice. Patient states his last tetanus booster was less than 5 years ago. ROS ROS ED Constitutional Constitutional ED: Denies chills or fever(s) Eyes Eyes: Denies blurry vision or change in vision ENT ENT ED: Reports sore throat; Denies rhinorrhea Cardiovascular Cardiovascular: Denies chest pain or palpitations Respiratory/Chest Respiratory/Chest: Reports cough; Denies dyspnea Gastrointestinal Gastrointestinal: Denies nausea or vomiting Genitourinary Genitourinary ED: Denies dysuria or hematuria Musculoskeletal Musculoskeletal: Denies back pain or neck pain Integumentary Denies abscess or rash Neurologic Neurologic: Denies headache(s) or weakness Allergic/Immunologic Allergic/Immunologic ED: Denies mouth swelling or urticaria [facility] Medical History (Updated 03/31/25 @ 22:[address] Talat Hayden, DO) Aortic valve insufficiency Atrial fibrillation Hypertension Home Medications ?Medication ?Instructions ?Recorded ?Last Taken ?Type amlodipine 5 mg tablet 5 mg PO DAILY 08/09/24 Unkno wn History atorvastatin 10 mg tablet 10 mg PO DAILY 08/09/24 Unkn own History lisinopril 20 mg tablet 20 mg PO DAILY 08/09/24 Unkn own History rivaroxaban 20 mg tablet (Xarelto) 20 mg PO DAILY 07/20 10/12 Unknown History amoxicillin 875 mg tablet 875 mg PO BID 10 days #20 ta bs 11/14/24 Unknown Rx azithromycin 250 mg tablet 250 mg PO DAILY #4 TABLETS 03/31/25 Unknown Rx Allergy/AdvReac Type Severity Reaction Status Date / Time No Known Allergies Allergy Verified 03/31/25 22:12 Surgical History Hx of hemorrhoidectomy Hx of arthroscopic knee surgery Hx of shoulder surgery Social History Smoking Status: Never smoker EXAM Physical Exam Const Vital Signs: 03/31/25 22:10 Temperature 98.1 F Temperature Source Temporal Pulse Rate 69 Respiratory Rate 16 Blood Pressure 162/91 H Blood Pressure Mean 114 Pulse Ox 98 Oxygen Delivery Method Room Air Positive well nourished and well developed Constitutional Narrative: BMI is 31.7. General Appearance ED: well developed and NAD HEENT Reports moist mucous membranes normocephalic and atraumatic Neck supple, no meningeal signs and no JVD Resp normal respiratory effort and clear to auscultation bilaterally Cardio Rate: regular rate Rhythm: regular rhythm Neuro oriented x3, CN's II-XII intact bilaterally and no sensory deficits noted Sensorium / Orientation: alert Motor Exam: strength 5/5 throughout Psych mental status grossly normal MDM MDM MDM Narrative Medical decision making narrative: Since the patient was exposed to pertussis, we will cover the patient with Zithromax. Patient was given a dose here. Patient was given a prescription for Zithromax. Patient was instructed to follow-up with his primary care physician in 5 to 7 days. Patient was instructed to drink plenty of fluids. Patient was instructed to return if worse in any way. Patient understood and was agreeable with the plan. All questions were answered. Discharge Plan Triage Chief Complaint: Cough ED Provider: Talat Hayden Dx/Rx/DC Orders Clinical Impression: Cough, Pertussis exposure Instructions: ED Upper Resp Infec Abx Tx Prescriptions: New azithromycin 250 mg tablet 250 mg PO DAILY Qty: 4 0RF No Action atorvastatin 10 mg tablet 10 mg PO DAILY lisinopril 20 mg tablet 20 mg PO DAILY amlodipine 5 mg tablet 5 mg PO DAILY Xarelto 20 mg tablet 20 mg PO DAILY amoxicillin 875 mg tablet 875 mg PO BID 10 Days Qty: 20 0RF [place] [facility] [facility] [Primary [place]] - 5-7 Days Print Language: Nepali Disposition Disposition: Home, Self Care
--- OUTSIDE RECORDS SUMMARY | 2025-03-31 22:35 | XMS RPT_ITS | CCD ---
Author Organization [facility] Care Team Providers Care Thermoplastic Technician Name Role Phone LOLY LNIDQUIST ROSENDO Primary Care UnavailMATY Sosa Attending Unavailable [facility] Primary Care Physician [phone] [facility] Primary Care Unavailable SVETA MARTÍNEZ, DR DE DIOS Attending Unavailab mal GUZMÁN MD, BETSY Smiley Attending Unavail able [facility] Primary Care Unavailable [facility] Primary Care Unavailabl JAYY Saldivar Attending Unavailable [facility] Primary Care Unavailabl e TI SCHULTZ Attending [place], [place] Primary Care Provider UnavailDr. Talat Plasencia DO Attending Provider Dr. Talat Hayden DO Emergency Provider Tanya Jones Attending Provider [phone] Tanya Jones Referring Provider [phone] Addy Fleming MD Emergency Provider Lonnie MARTÍNEZ, Dr. Daly Attending Provider [phone] Addy Fleming Attending [facility], [place] Primary Care Unavailable [facility], [place] Primary Care Unavailable Talat Hayden Attending Unavailable Addy Fleming Attending [place] Primary Care Unavailable Tanya Jones Attending Unavailable Tanya Jones Referring [place] Primary Care Unavailable Medications Current Medications Medication Drug Class(es) Dates Sig (Normalized) Sig (Original) acetaminophen 325 mg / HYDROcodone bitartrate 5 mg oral tablet (4 sources) Opioid Agonist Start: 02-01-2023 take 1 tablet by mouth every six hours as needed for pain acetaminophen-hyd rocodone 325 mg-5 mg oral tablet Dose = 1 tab(s), Oral, q6h, PRN for pain, # 12 tab(s), 0 Refill(s), 82.8 Start Date: 02/01/23 Status: Ordered Start: 12-30-2014 End: 08-09-2024 Hydrocodone-Acetaminophen 1 TABLET tablet Discontinued 1 {tbl} PO EVERY 4 HOURS NEEDED as needed for Pain December 30, 2014 12:00am August 09, 2024 10:32am amLODIPine 5 mg oral tablet (2 sources) Dihydropyridine Calcium Channel Miguel Ángel Start: 08-09-2024 take 1 tablet by mouth once daily Amlodipine 5 mg tablet Active 5 mg PO DAILY August 09, 2024 1:00am amoxicillin 875 mg oral tablet (2 sources) Penicillin-class Antibacterial Start: 11-14-2024 take 1 tablet by mouth twice daily Amoxicillin 875 mg tablet Active 875 mg PO TWICE A DAY 07 06November 14, 2024 12:00am atorvastatin 10 mg oral tablet (4 sources) HMG-CoA Reductase Inhibitor Start: 08-09-2024 take 1 tablet by mouth once daily Atorvastatin 10 mg tablet Active 10 mg PO DAILY August 09, 2024 1:00am Start: 02-01-2023 atorvastatin 2 0 mg oral tablet Dose : 20 mg = 1 tab(s), Oral, qDay, # 30 tab(s), 0 Refill(s) Start Date: 02/01/23 Status: Ordered ibuprofen 800 mg oral tablet (2 sources) Nonsteroidal Anti-inflammatory Drug Start: 02-01-2023 ibuprofen 800 mg oral tablet Dose : 800 mg = 1 tab(s), Oral, TID, PRN as needed for pain, # 30 tab(s), 0 Refill(s) Start Date: 02/01/23 Status: Ordered lisinopril 20 mg oral tablet (4 sources) Angiotensin Converting Enzyme Inhibitor Start: 08-09-2024 take 1 tablet by mouth once daily Lisinopril 20 mg tablet Active 20 mg PO DAILY August 09, 2024 1:00am Start: 02-01-2023 lisinopril 10 mg oral tablet Dose : 10 mg = 1 tab(s), Oral, qDay, # 30 tab(s), 0 Refill(s) Start Date: 02/01/23 Status: Ordered rivaroxaban 20 mg oral tablet (4 sources) Factor Xa Inhibitor Start: 08-09-2024 take 1 tablet by mouth once daily Rivaroxaban (Rivaroxaban 20 Mg Tablet) 20 mg tablet Active 20 mg PO DAILY August 09, 2024 1:00am Start: 02-01-2023 Xarelto 20 mg oral tablet Dose : 20 mg = 1 tab(s), Oral, qHS, # 30 tab(s), 0 Refill(s), 82.8 Start Date: 02/01/23 Status: Ordered Completed/Discontinued Medications Medication Drug Class(es) Dates Sig (Normalized) Sig (Original) cephalexin 500 mg oral capsule (2 sources) Cephalosporin Antibacterial Start: 03-03-2021 End: 08-09-2024 take 2 capsules by mouth every six hours Cephalexin 500 mg capsule Discontinued 1000 mg PO EVERY 6 HOURS 56 March 03, 2021 12:00am August 09, 2024 10:32am etodolac 300 mg oral capsule (2 sources) Nonsteroidal Anti-inflammatory Drug Start: 01-29-2015 End: 08-09-2024 take 1 capsule by mouth three times daily at mealtime Etodolac 300 MG capsule Discontinued 300 mg PO 3 TIMES DAILY WITH MEALS January 29, 2015 12:00am August 09, 2024 10:32am with food traMADol hydrochloride 50 mg oral tablet (2 sources) Opioid Agonist Start: 08-03-2013 End: 08-07-2013 take 1 tablet by mouth every six hours as needed for pain Tramadol 50 MG tablet Discontinued 50 mg PO EVERY 6 HOURS NEEDED as needed for Pain August 03, 2013 1:00am August 07, 2013 10:55pm Problems Active Problems Problem Classification Problem Date Documented Da te Episodic/Chronic Abdominal pain (3 sources) Right flank pain; Translations: [Unspecified abdominal pain] Onset: 09-08-2024 08-17-2024 Episodic Essential hypertension (3 sources) Essential (primary) hypertension; Translations: [Hypertensive disorder] Onset: 07-08-2022 08-09-2024 Chronic Nonspecific chest pain (1 source) Chest pain, unspecified; Translations: [Chest pain, unspecified type] Onset: 07-08-2022 Episodic Other aftercare (2 sources) Long-term current use of anticoagulant; Translations: [FCI (current) use of anticoagulants] 11-14-2024 Episodic Other circulatory disease (2 sources) H/O: atrial fibrillation; Translations: [Personal history of other diseases of the circulatory system] 11-14-2024 Episodic Other ear and sense organ disorders (1 source) Pain of ear structure; Translations: [Otalgia, right ear] 11-28-2024 Episodic Other ear and sense organ disorders (1 source) Otalgia, right ear; Translations: [Otalgia, right ear] Onset: 12-02-2024 Episodic Other liver diseases (2 sources) High lipase level in serum; Translations: [Abnormal levels of other serum enzymes] 08-17-2024 Episodic Other skin disorders (1 source) Rash and other nonspecific skin eruption; Translations: [Rash] Onset: 07-08-2022 Episodic Otitis media and related conditions (2 sources) Acute right otitis media; Translations: [Otitis media, unspecified, right ear] 11-14-2024 Episodic Superficial injury; contusion (3 sources) Contusion of right shoulder; Translations: [Contusion of right shoulder, initial encounter] Onset: 02-01-2023 Episodic Syncope (1 source) Syncope and collapse; Translations: [Vasovagal near syncope] Onset: 10-31-2023 Episodic Viral infection (1 source) Zoster with other complications; Translations: [Herpes zoster with complication] Onset: 07-08-2022 Episodic Past or Other Problems Problem Classification Problem Date Documented Da te Episodic/Chronic Other injuries and conditions due to external causes (1 source) Unspecified injury of left elbow, initial encounter; Translations: [Elbow injury, left, initial encounter] Onset: 02-10-2023 Episodic Results Test Name Value Interpretation Reference Range Facility Emergency Department Summary on 11-28-2024 Emergency Department Summary [facility] Medical Records Department [address] [place] [address] Emergency Department Summary 11/28/24 MR#: [id number] Acct: [id number] Name: WILLI RAMIREZ Rep #: [id number] : 1955 69 From: Addy Fleming MD PCP: [place] [facility] Status:[facility] ER Location: ED HPI History of Present Illness Chief Complaint: Ear Problem Narrative Narrative: 68-year-old male developed right ear pain around November 14. No trauma. No drainage or discharge. He was seen at [facility] ED that day and diagnosed with right otitis media. He finished the amoxicillin 875 twice daily for 10 days without improvement in symptoms. He followed up with urgent care and was prescribed cefdinir and took several days of this. He saw his primary care doctor who told him to discontinue cefdinir and start p.o. Levaquin and neomycin/polymyxin eardrops which she has been on for 5 days. He was told if his symptoms did not improve after 5 days to be reevaluated which is why he is here. He said no fever or chills. He has occasional ringing in both ears. No hearing loss. PFSH PFS Medical History Atrial fibrillation Hypertension Home Medications ???Medication ???Instructions ???Recorded ???Last Taken ???Type amlodipine 5 mg tablet 5 mg PO DAILY 08/09/24 Unknown His tory atorvastatin 10 mg tablet 10 mg PO DAILY 08/09/24 Unknown Hi story lisinopril 20 mg tablet 20 mg PO DAILY 08/09/24 Unknown Hi story rivaroxaban 20 mg tablet (Xarelto) 20 mg PO DAILY 08/09/24 Unknown History amoxicillin 875 mg tablet 875 mg PO BID 10 days #20 tabs Unknown Rx Allergy/AdvReac Type Severity Reaction Status Date / Time No Known Allergies Allergy Verified 11/28/24 18:47 Surgical History Hx of hemorrhoidectomy Hx of arthroscopic knee surgery Hx of shoulder surgery Social History Smoking Status: Never smoker ROS ROS ED ROS Narrative Constitutional: Negative for fever, chills, malaise. ENT: Positive for ear pain. Neuro: Negative for headache. EXAM Physical Exam Narrative Exam Narrative: CONST: Patient sitting in no acute distress. EYES: Normal inspection. ENT: External ears appear normal. No tenderness of the right tragus or auricle, normal mastoid without swelling tenderness or erythema. Ear canal is mildly swollen without discharge. TM is pearly white without perforation. Left TM also appears normal. NECK: Normal inspection. RESP: No respiratory distress, CTAB. CVS: Regular rate and rhythm, no murmur, no gallop. SKIN: Color normal, no rash, warm, dry, intact. EXTREMITIES: Normal appearance, no pedal edema. NEURO: Alert and answering questions appropriately. PSYCH: Normal affect. Const Vital Signs: 11/28/24 18:47 11/28/24 19:14 Temperature 97.8 F 97.8 F Temperature Source Temporal Pulse Rate 53 L 75 Respiratory Rate 16 17 Blood Pressure 115/69 149/94 H Blood Pressure Mean 84 112 Pulse Ox 97 97 Oxygen Delivery Method Room Air Physical Exam Const Vital Signs: 11/28/24 18:47 11/28/24 19:14 Temperature 97.8 F 97.8 F Temperature Source Temporal Pulse Rate 53 L 75 Respiratory Rate 16 17 Blood Pressure 115/69 149/94 H Blood Pressure Mean 84 112 Pulse Ox 97 97 Oxygen Delivery Method Room Air MDM MDM MDM Narrative Medical decision making narrative: Differential includes but not limited to: Otitis externa, otitis media, perforated eardrum, mastoiditis 69-year-old male took several antibiotics for right otitis media and now presents with some persistent pain but also complains of intermittent tinnitus and buzzing. He appears well and nontoxic. Afebrile and hemodynamically stable. Right ear canal is minimally swollen but the TM appears normal. There is no sign of infection or perforation. No evidence of mastoiditis. He has already completed 10 days of amoxicillin, a few days of cefdinir, and 5 days of Levaquin. I recommended he discontinue oral antibiotics as there is no sign of otitis media. He should continue the eardrops for external as there is slight swelling. He does not require a wick. I referred him to ENT and he was discharged in stable condition. I have personally performed a face to face assessment of the patient and have reviewed the BRADY Note. I performed a substantive portion of the visit including all aspects of the following. My tavares findings include: History is [6-year-old male about 2 weeks ago was seen here at that time had otitis media. He had a red retracted eardrum. He was placed on amoxicillin twice daily. Send bleeding get better he has noticed some buzzing in his ear and decreased hearing. He (more content not included)... [facility] Emergency Department Summary on 11-14-2024 Emergency Department Summary [facility] Medical Records Department [address] [place] [address] Emergency Department Summary 11/14/24 MR#: [id number] Acct: [id number] Name: WILLI RAMIREZ Rep #: [id number] : 1955 68 From: Addy Fleming MD PCP: [facility] Status:DEP ER Location: ED HPI HPI - URI History of Present Illness Chief Complaint: Ear Problem Informant: patient and spouse/S.O. Onset/Context/Timing Onset: Today Context: Gradual Onset Timing: Continuous Current Severity: Mild Maximum Severity: Mild Narrative Narrative: 68-year-old male history of A-fib on Xarelto, hypertension and recent left shoulder rotator cuff repair surgery. Since the night around dinner around 6:00 he developed right ear pain. Denies any trauma. No drainage or discharge. Said he has not had an ear infection since he was a young boy. Denies any other complaints. No sore throat. No trouble swallowing. No cough. Prior similar symptoms: Yes Recent Illness/Hospitalization: No ROS ROS ED ROS Narrative Right ear ache only. Constitutional Constitutional ED: Denies chills or fever(s) Eyes Eyes: Denies blurry vision ENT ENT ED: Denies ear pain, rhinorrhea or sore throat Cardiovascular Cardiovascular: Denies chest pain or palpitations Respiratory/Chest Respiratory/Chest: Denies cough, dyspnea or dyspnea on exertion Gastrointestinal Gastrointestinal: Denies abdominal pain, constipation, diarrhea, melena, nausea or vomiting Genitourinary Genitourinary ED: Denies dysuria or hematuria Musculoskeletal Musculoskeletal: Denies arthralgias, back pain, myalgias or neck pain Integumentary Denies abscess, Abrasions or rash Neurologic Neurologic: Denies headache(s) Psychiatric Psychiatric: Denies anxiety or depression Endocrine Endocrinology: Denies cold intolerance, heat intolerance, polydipsia or polyphagia Hematologic/Lymphatic Hematologic/Lymphatic: Denies lymphadenopathy Allergic/Immunologic Allergic/Immunologic ED: Reports urticaria; Denies mouth swelling or tongue swelling [facility] Medical History Atrial fibrillation Hypertension Home Medications ???Medication ???Instructions ???Recorded ???Last Taken ???Type amlodipine 5 mg tablet 5 mg PO DAILY 08/09/24 Unknown His tory atorvastatin 10 mg tablet 10 mg PO DAILY 08/09/24 Unknown Hi story lisinopril 20 mg tablet 20 mg PO DAILY 08/09/24 Unknown Hi story rivaroxaban 20 mg tablet (Xarelto) 20 mg PO DAILY 08/09/24 Unknown History amoxicillin 875 mg tablet 875 mg PO BID 10 days #20 tabs Unknown Rx Allergy/AdvReac Type Severity Reaction Status Date / Time No Known Allergies Allergy Verified 11/14/24 19:48 Surgical History Hx of hemorrhoidectomy Hx of arthroscopic knee surgery Hx of shoulder surgery Social History Smoking Status: Never smoker EXAM Physical Exam Narrative Exam Narrative: Well-appearing 68-year-old male. Sitting upright in bed. No distress. Vital signs stable afebrile. HEENT exam pupils round reactive light. Posterior pharynx normal. Moist mucous membranes. No erythema. No exudate. No trouble swallowing. Left TM and canal normal. Right TM erythematous and dull no perforation. Canal unremarkable. Some wax. Neck nontender. No lymphadenopathy. Eustachian tube nontender. Lungs clear to auscultation. Heart A-fib rate about 80. Chest wall and ribs nontender. Abdomen soft nontender. Moving all 4 extremities. Nontender no edema. Left arm is in a sling from recent rotator cuff surgery. Normal academic counselor strength. Normal dorsi plantarflexion. Neurologically is awake and alert. Answering questions following commands. No focal motor deficits. Const Vital Signs: 11/14/24 19:48 Temperature 98.3 F Temperature Source Oral Pulse Rate 79 Respiratory Rate 16 Blood Pressure 165/89 H Blood Pressure Mean 114 Pulse Ox 98 Oxygen Delivery Method Room Air Positive well nourished and well developed; Negative for cachectic or contractures General Appearance ED: well developed and NAD; Negative for cachectic, contractures, cyanotic, diaphoretic or pallor Nutritional Appearance: Negative for cachectic HEENT Reports moist mucous membranes HEENT Narrative: Right otitis media. Canal unremarkable. Some wax. TM intact no perforation. No blood. Red and dull. normocephalic and atraumatic Throat: posterior oropharynx normal Eyes PERRL and EOMs intact bilaterally Neck no lymphadenopathy, supple, no meningeal signs and no JVD Resp normal respiratory effort and clear to auscultation bilaterally Cardio S1 normal heart sound, S2 normal heart sound and no murmurs Cardio Narrative: A-fib rate 80. GI (more content not included)... [facility] Absolute neutrophil countOrd ered By: Tanya Jones on 09-18-2024 Neutrophils (Bld) [#/Vol] 3.4 10*3/uL 2.0-7.7 [facility] Basic Metabolic Profile (BMP )on 09-18-2024 BUN/CRE 21.4 RATIO High 10-20 [facility] Comment on above: Performed By: #### L 500.2500, L100.0100 #### [facility] [address] [place], [address] CA,Total 8.8 mg/dL Normal 8.5-10.1 [facility] Comment on above: Performed By: #### L 500.2500, L100.0100 #### [facility] [address] [place], [address] Chloride [Moles/Vol] 108 mmol/L High 98-[address] [facility] Comment on above: Performed By: #### L 500.2500, L100.0100 #### [facility] [address] [place], [address] CO2 [Moles/Vol] 26.0 mmol/L Normal 21.0-32.0 [facility] Comment on above: Performed By: #### L 500.2500, L100.0100 #### [facility] [address] [place], [address] Creatinine [Mass/Vol] 0.98 mg/dL Normal 0.70-1.30 [facility] Comment on above: Result Comment: The validity of the calculated GFR GFRAA in patients over 70 years has not been determined. Clinical correlation is essential. Performed By: #### L 500.2500, L100.0100 #### [facility] [address] [place], [address] EST GFR - AA 97 mL/min Normal >60 [facility] Comment on above: Result Comment: Afri can Latvian GFR Calc Performed By: #### L 500.2500, L100.0100 #### [facility] [address] [place], [address] GAP 5 Normal 5-15 [facility] Comment on above: Performed By: #### L 500.2500, L100.0100 #### [facility] [address] [place], [address] GFR/1.73 sq M.predicted among non-blacks MDRD (S/P/Bld) [Vol rate/Area] 80 mL/min/{1.73_m2} Normal >60 [facility] Comment on above: Result Comment: Non- GFR Calc Performed By: #### L 500.2500, L100.0100 #### [facility] [address] [place], [address] Glucose [Mass/Vol] 99 mg/dL Normal 74-106 [facility] Comment on above: Performed By: #### L 500.2500, L100.0100 #### [facility] [address] [place], [address] Potassium [Moles/Vol] 4.2 mmol/L Normal 3.5-5.1 [facility] Comment on above: Performed By: #### L 500.2500, L100.0100 #### [facility] [address] [place], [address] Sodium [Moles/Vol] 139 mmol/L Normal 136-145 [facility] Comment on above: Performed By: #### L 500.2500, L100.0100 #### [facility] [address] [place], [address] Urea nitrogen [Mass/Vol] 21 mg/dL High 7-18 [facility] Comment on above: Performed By: #### L 500.2500, L100.0100 #### [facility] [address] [place], [address] Basophil percentageOrdered B y: Tanya Jones on 09-18-2024 Basophils/100 WBC (Bld) 0.8 % 0-1 [facility] Blood urea nitrogen (BUN)/cr eatinine ratioOrdered By: Tanya Jones on 09-18-2024 Urea nitrogen/Creatinine [Mass ratio] 21.4 mg/mg High 10-20 [facility] CBC W/Diff, Automatedon - Absolute Lymph 2.38 X10 3/uL Normal 0.83-4.51 [facility] Comment on above: Performed By: #### L 500.2500, L100.0100 #### [facility] [address] [place], [address] Absolute Neut 3.4 X10 3/uL Normal 2.0-7.7 [facility] Comment on above: Performed By: #### L 500.2500, L100.0100 #### [facility] [address] [place], [address] Basophils/100 WBC (Bld) 0.8 % Normal 0-1 [facility] Comment on above: Performed By: #### L 500.2500, L100.0100 #### [facility] [address] [place], [address] Eosinophils/100 WBC (Bld) 3.4 % Normal 0-5 [facility] Comment on above: Performed By: #### L 500.2500, L100.0100 #### [facility] [address] [place], [address] Erythrocyte distribution width (RBC) [Ratio] 12.6 % Normal 11.6-14.6 [facility] Comment on above: Performed By: #### L 500.2500, L100.0100 #### [facility] [address] [place], [address] Hematocrit (Bld) [Volume fraction] 41.0 % Normal 40-54 [facility] Comment on above: Performed By: #### L 500.2500, L100.0100 #### [facility] [address] [place], [address] Hemoglobin (Bld) [Mass/Vol] 14.3 g/dL Normal 13.0-16.5 [facility] Comment on above: Performed By: #### L 500.2500, L100.0100 #### [facility] [address] [place], [address] IG% 0.300 Normal 0.0-0.9 [facility] Comment on above: Result Comment: IG% - Immature Granulocytes (promyelocytes, myelocytes and metamyelocytes) > 1% indicates that a LEFT SHIFT is Present. Performed By: #### L 500.2500, L100.0100 #### [facility] [address] [place], [address] Lymphocytes/100 WBC (Bld) 36.3 % Normal 19-41 [facility] Comment on above: Performed By: #### L 500.2500, L100.0100 #### [facility] [address] [place], [address] MCH (RBC) [Entitic mass] 31.0 pg Normal 27.0-32.0 [facility] Comment on above: Performed By: #### L 500.2500, L100.0100 #### [facility] [address] [place], [address] MCHC (RBC) [Mass/Vol] 34.9 g/dL Normal 32-36 [facility] Comment on above: Performed By: #### L 500.2500, L100.0100 #### [facility] [address] [place], [address] MCV (RBC) [Entitic vol] 88.9 fL Normal 80-94 [facility] Comment on above: Performed By: #### L 500.2500, L100.0100 #### [facility] [address] [place], [address] Monocytes/100 WBC (Bld) 8.1 % Normal 0-10 [facility] Comment on above: Performed By: #### L 500.2500, L100.0100 #### [facility] [address] [place], [address] Neutrophils/100 WBC (Bld) 51.1 % Normal 47-70 [facility] Comment on above: Performed By: #### L 500.2500, L100.0100 #### [facility] [address] [place], [address] Nucleated RBC (Bld) [#/Vol] 0 10*3/uL Normal 0-5 [facility] Comment on above: Performed By: #### L 500.2500, L100.0100 #### [facility] [address] [place], [address] Platelet mean volume (Bld) [Entitic vol] 8.9 fL Normal 6.2-12.0 [facility] Comment on above: Performed By: #### L 500.2500, L100.0100 #### [facility] [address] [place], [address] Platelets (Bld) [#/Vol] 231 10*3/uL Normal 150-450 [facility] Comment on above: Performed By: #### L 500.2500, L100.0100 #### [facility] [address] [place], [address] RBC (Bld) [#/Vol] 4.61 10*6/uL Normal 4.6-6.2 [facility] Comment on above: Performed By: #### L 500.2500, L100.0100 #### [facility] [address] [place], [address] RDW SD 40.9 fl Normal 35.1-43.9 [facility] Comment on above: Performed By: #### L 500.2500, L100.0100 #### [facility] [address] [place], [address] WBC (Bld) [#/Vol] 6.6 10*3/uL Normal 4.4-11.0 [facility] Comment on above: Performed By: #### L 500.2500, L100.0100 #### [facility] [address] [place], [address] Carbon dioxide measurementOr dered By: Tanya Jones on 09-18-2024 CO2 [Moles/Vol] 26.0 mmol/L 21.0-32.0 [facility] Chloride measurementOrdered By: Tanya Jones on 09-18-2024 Chloride [Moles/Vol] 108 mmol/L High 98-[address] [facility] Eosinophil percentageOrdered By: Tanya Jones on 09-18-2024 Eosinophils/100 WBC (Bld) 3.4 % 0-5 [facility] Erythrocyte distribution wid th ratioOrdered By: Tanya oJnes on 09-18-2024 Erythrocyte distribution width (RBC) [Ratio] 12.6 % 11.6-14.6 [facility] Erythrocyte distribution wid th standard deviationOrdered By: Tanya Jones on 09-18-2024 Erythrocyte distribution width (RBC) [Entitic vol] 40.9 fL 35.1-43.9 [facility] Estimated glomerular filtrat ion rate (GFR) AmericanOrdered By: Tanya Jones on 09-18-2024 Estimated GFR (MDRD) Amer 97 mL/min >60 [facility] Comment on above: GFR Calc Glomerular filtration rate ( GFR) estimationOrdered By: Tanya Jones on 09-18-2024 Estimated GFR (MDRD) Non-Af Amer 80 mL/min >60 [facility] Comment on above: Non- GFR Calc Glucose measurementOrdered B y: Tanya Jones on 09-18-2024 Glucose [Mass/Vol] 99 mg/dL 74-106 [facility] Hematocrit Auto (Bld) [Volum e fraction]Ordered By: Tanya Jones on 09-18-2024 Hematocrit (Bld) [Volume fraction] 41.0 % 40-54 [facility] Hemoglobin measurementOrdere d By: Tanya Jones on 09-18-2024 Hemoglobin (Bld) [Mass/Vol] 14.3 g/dL 13.0-16.5 [facility] Immature granulocytes/100 WB C Auto (Bld)Ordered By: Tanya Jones on 09-18-2024 Immature granulocytes/100 WBC (Bld) 0.300 % 0.0-0.9 [facility] Comment on above: IG% - Immature Granu locytes (promyelocytes, myelocytes and metamyelocytes) > 1% indicates that a LEFT SHIFT is Present. Lymphocytes Auto (Unsp spec) [#/Vol]Ordered By: Tanya Jones on 09-18-2024 Lymphocytes (Bld) [#/Vol] 2.38 10*3/uL 0.83-4.51 [facility] Lymphocytes/100 WBC Auto (Un sp spec)Ordered By: Tanya Jones on 09-18-2024 Lymphocytes/100 WBC (Bld) 36.3 % 19-41 [facility] MCV (mean corpuscular volume ) determinationOrdered By: Tanya Jones on 09-18-2024 MCV (RBC) [Entitic vol] 88.9 fL 80-94 [facility] Mean corpuscular hemoglobin (MCH) determinationOrdered By: Tanya Jones on 09-18-2024 MCH (RBC) [Entitic mass] 31.0 pg 27.0-32.0 [facility] Mean corpuscular hemoglobin concentration (MCHC) determinationOrdered By: Tanya Jones on 09-18-2024 MCHC (RBC) [Mass/Vol] 34.9 g/dL 32-36 [facility] Mean platelet volume determi nationOrdered By: Tanya Jones on 09-18-2024 Platelet mean volume (Bld) [Entitic vol] 8.9 fL 6.2-12.0 [facility] Monocyte percentageOrdered B y: Tanya Jones on 09-18-2024 Monocytes/100 WBC (Bld) 8.1 % 0-10 [facility] Neutrophil percentageOrdered By: Tanya Jones on 09-18-2024 Neutrophils/100 WBC (Bld) 51.1 % 47-70 [facility] Nucleated red blood cell per centageOrdered By: Tanya Jones on 09-18-2024 Nucleated RBC/100 WBC (Bld) [Ratio] 0 % 0-5 [facility] Platelet countOrdered By: Kali Jones on 09-18-2024 Platelets (Bld) [#/Vol] 231 10*3/uL 150-450 [facility] Potassium measurementOrdered By: Tanya Jones on 09-18-2024 Potassium [Moles/Vol] 4.2 mmol/L 3.5-5.1 [facility] RBC Auto (Bld) [#/Vol]Ordere d By: Tanya Jones on 09-18-2024 RBC (Bld) [#/Vol] 4.61 10*6/uL 4.6-6.2 [facility] Serum anion gap measurementO rdered By: Tanya Jones on 09-18-2024 Anion gap [Moles/Vol] 5 mmol/L 5-15 [facility] Serum or plasma calcium robret urement (mass/volume)Ordered By: Tanya Jones on 09-18-2024 Calcium [Mass/Vol] 8.8 mg/dL 8.5-10.1 [facility] Serum or plasma creatinine m easurement (mass/volume)Ordered By: Tanya Jones on 09-18-2024 Creatinine [Mass/Vol] 0.98 mg/dL 0.70-1.30 [facility] Comment on above: The validity of the calculated GFR & GFRAA in patients over 70 years has not been determined. Clinical correlation is essential. Serum or plasma urea nitroge n measurement (mass/volume)Ordered By: Tanya Jones on 09-18-2024 Urea nitrogen [Mass/Vol] 21 mg/dL High 7-18 [facility] Sodium levelOrdered By: Brenna Jones on 09-18-2024 Sodium [Moles/Vol] 139 mmol/L 136-145 [facility] White blood cell (WBC) count Ordered By: Tanya Jones on 09-18-2024 WBC (Bld) [#/Vol] 6.6 10*3/uL 4.4-11.0 [facility] Abdomen/Pelvis without Conto n 08-09-2024 Abdomen/Pelvis without Cont [facility] [address] [place] [address] Abdomen/Pelvis without Cont MR#: [id number] Acct: [id number] Name: WILLI RAMIREZ Rep #: [id number] : 1955 M 68 From: Pj Lyon MD PCP: [facility] Status: REG ER Study: Abdomen/Pelvis without Cont Date of Exam: 07/20 10/12 Exam# [id number] Ordering Dr: Talat Hayden DO [id number] STUDY: CT ABDOMEN AND PELVIS WITHOUT CONTRAST REASON FOR EXAM: Male, 68 years old. Pain RADIATION DOSAGE (If Supplied By Facility): CTDIvol = ( 11.94 ) mGy, DLP = ( 581.47 ) mGycm TECHNIQUE: Transaxial images were obtained from the dome of the diaphragm to the symphysis pubis without oral contrast, and without intravenous contrast. Sagittal and coronal images were reconstructed. Individualized dose optimization techniques were used for this CT. COMPARISON: 2012 FINDINGS: Lung molina show stable fibrotic scar in the right middle lobe. The visualized portions of the heart are within normal limits. Normal liver. Normal gallbladder and extrahepatic biliary system. Normal spleen. Normal pancreas. Normal bilateral adrenal glands. Normal right kidney. Normal left kidney. There is a small hiatal hernia. Normal small intestine. Normal colon. The appendix is visualized and appears normal. Appendix seen on coronal recon images 65 through 72 Normal abdominal aorta. Normal inferior vena cava. Normal retroperitoneum. Normal urinary bladder. There are prostatic calcifications. Normal abdominal wall. There are diffuse degenerative changes of the visualized lumbar spine, and pelvis. CT/Abdomen/Pelvis without Cont IMPRESSION: No suspicious solid organ abnormality, specifically, no obstructive uropathy or suspicious solid renal lesion. No free peritoneal fluid, air, or suspicious adenopathy, normal appendix visualized Degenerative bony changes Electronically Signed: Musa Lyon MD at 10:33 EST , CC: Dr. Talat Hayden, DO; [facility] [employer]: Signed [facility] Absolute neutrophil countOrd ered By: Talat Hayden on 08-09-2024 Neutrophils (Bld) [#/Vol] 3.5 10*3/uL 2.0-7.7 [facility] Albumin to globulin ratioOrd ered By: Talat Hayden on 08-09-2024 Albumin/Globulin [Mass ratio] 1.1 {ratio} 0.9-2.4 [facility] Amorphous sediment detection in urine sediment by light microscopyOrdered By: Talat Hayden on 08-09-2024 Amorphous sediment LM Ql (Urine sed) 1+ [facility] Basophil percentageOrdered B y: Talat Hayden on 08-09-2024 Basophils/100 WBC (Bld) 0.7 % 0-1 [facility] Bilirubin Test strip Ql (U)O rdered By: Talat Hayden on 08-09-2024 Bilirubin Ql (U) Negative Negative [facility] Bilirubin, totalOrdered By: Talat Hayden on 08-09-2024 Bilirubin [Mass/Vol] 0.90 mg/dL 0.20-1.[address] [facility] Comment on above: For patients on eltr ombopag therapy, use of Dimension [place] TBIL is not recommended. Blood urea nitrogen (BUN)/cr eatinine ratioOrdered By: Talat Hayden on 08-09-2024 Urea nitrogen/Creatinine [Mass ratio] 24.3 mg/mg High 10-20 [facility] CBC W/Diff, Automatedon 07-20 Absolute Lymph 2.36 X10 3/uL Normal 0.83-4.51 [facility] Comment on above: Performed By: #### L 501.2450, L500.4050, L100.0100 #### [facility] [address] [place], [place], [id number] Absolute Neut 3.5 X10 3/uL Normal 2.0-7.7 [facility] Comment on above: Performed By: #### L 501.2450, L500.4050, L100.0100 #### [facility] [address] [place], [address] Basophils/100 WBC (Bld) 0.7 % Normal 0-1 [facility] Comment on above: Performed By: #### L 501.2450, L500.4050, L100.0100 #### [facility] [address] [place], [address] Eosinophils/100 WBC (Bld) 4.3 % Normal 0-5 [facility] Comment on above: Performed By: #### L 501.2450, L500.4050, L100.0100 #### [facility] [address] [place], [address] Erythrocyte distribution width (RBC) [Ratio] 12.9 % Normal 11.6-14.6 [facility] Comment on above: Performed By: #### L 501.2450, L500.4050, L100.0100 #### [facility] [address] [place], [address] Hematocrit (Bld) [Volume fraction] 42.6 % Normal 40-54 [facility] Comment on above: Performed By: #### L 501.2450, L500.4050, L100.0100 #### [facility] [address] [place], [address] Hemoglobin (Bld) [Mass/Vol] 14.6 g/dL Normal 13.0-16.5 [facility] Comment on above: Performed By: #### L 501.2450, L500.4050, L100.0100 #### [facility] [address] [place], [address] IG% 0.100 Normal 0.0-0.9 [facility] Comment on above: Result Comment: IG% - Immature Granulocytes (promyelocytes, myelocytes and metamyelocytes) > 1% indicates that a LEFT SHIFT is Present. Performed By: #### L 501.2450, L500.4050, L100.0100 #### [facility] [address] [place], [address] Lymphocytes/100 WBC (Bld) 34.2 % Normal 19-41 [facility] Comment on above: Performed By: #### L 501.2450, L500.4050, L100.0100 #### [facility] [address] [place], [address] MCH (RBC) [Entitic mass] 31.1 pg Normal 27.0-32.0 [facility] Comment on above: Performed By: #### L 501.2450, L500.4050, L100.0100 #### [facility] [address] [place], [address] MCHC (RBC) [Mass/Vol] 34.3 g/dL Normal 32-36 [facility] Comment on above: Performed By: #### L 501.2450, L500.4050, L100.0100 #### [facility] [address] [place], [address] MCV (RBC) [Entitic vol] 90.8 fL Normal 80-94 [facility] Comment on above: Performed By: #### L 501.2450, L500.4050, L100.0100 #### [facility] [address] [place], [address] Monocytes/100 WBC (Bld) 10.1 % High 0-10 [facility] Comment on above: Performed By: #### L 501.2450, L500.4050, L100.0100 #### [facility] [address] [place], [address] Neutrophils/100 WBC (Bld) 50.6 % Normal 47-70 [facility] Comment on above: Performed By: #### L 501.2450, L500.4050, L100.0100 #### [facility] [address] [place], [address] Nucleated RBC (Bld) [#/Vol] 0 10*3/uL Normal 0-5 [facility] Comment on above: Performed By: #### L 501.2450, L500.4050, L100.0100 #### [facility] [address] [place], [address] Platelet mean volume (Bld) [Entitic vol] 9.4 fL Normal 6.2-12.0 [facility] Comment on above: Performed By: #### L 501.2450, L500.4050, L100.0100 #### [facility] [address] [place], [address] Platelets (Bld) [#/Vol] 223 10*3/uL Normal 150-450 [facility] Comment on above: Performed By: #### L 501.2450, L500.4050, L100.0100 #### [facility] [address] [place], [address] RBC (Bld) [#/Vol] 4.69 10*6/uL Normal 4.6-6.2 [facility] Comment on above: Performed By: #### L 501.2450, L500.4050, L100.0100 #### [facility] [address] [place], [address] RDW SD 42.4 fl Normal 35.1-43.9 [facility] Comment on above: Performed By: #### L 501.2450, L500.4050, L100.0100 #### [facility] [address] [place], [address] WBC (Bld) [#/Vol] 6.9 10*3/uL Normal 4.4-11.0 [facility] Comment on above: Performed By: #### L 501.2450, L500.4050, L100.0100 #### [facility] [address] [place], [address] Carbon dioxide measurementOr dered By: Talat Hayden on 08-09-2024 CO2 [Moles/Vol] 27.0 mmol/L 21.0-32.0 [facility] Chloride measurementOrdered By: Talat Hayden on 08-09-2024 Chloride [Moles/Vol] 106 mmol/L 98-[address] [facility] Comprehensive Metabolic Prof ilon 08-09-2024 Albumin [Mass/Vol] 3.6 g/dL Normal 3.2-5.0 [facility] Comment on above: Performed By: #### L 501.2450, L500.4050, L100.0100 #### [facility] [address] [place], [address] Albumin/Globulin [Mass ratio] 1.1 {ratio} Normal 0.9-2.4 [facility] Comment on above: Performed By: #### L 501.2450, L500.4050, L100.0100 #### [facility] [address] [place], [address] ALK P 63 U/L Normal 45-117 [facility] Comment on above: Performed By: #### L 501.2450, L500.4050, L100.0100 #### [facility] [address] [place], [address] ALT [Catalytic activity/Vol] 30 U/L Normal 16-61 [facility] Comment on above: Performed By: #### L 501.2450, L500.4050, L100.0100 #### [facility] [address] [place], [address] AST [Catalytic activity/Vol] 24 U/L Normal 15-37 [facility] Comment on above: Performed By: #### L 501.2450, L500.4050, L100.0100 #### [facility] [address] [place], [address] Bilirubin [Mass/Vol] 0.90 mg/dL Normal 0.20-1.[address] [facility] Comment on above: Result Comment: For patients on eltrombopag therapy, use of Dimension [place] TBIL is not recommended. Performed By: #### L 501.2450, L500.4050, L100.0100 #### [facility] [address] [place], [address] BUN/CRE 24.3 RATIO High 10-20 [facility] Comment on above: Performed By: #### L 501.2450, L500.4050, L100.0100 #### [facility] [address] [place], [address] CA,Total 8.7 mg/dL Normal 8.5-10.1 [facility] Comment on above: Performed By: #### L 501.2450, L500.4050, L100.0100 #### [facility] [address] [place], [address] Chloride [Moles/Vol] 106 mmol/L Normal 98-[address] [facility] Comment on above: Performed By: #### L 501.2450, L500.4050, L100.0100 #### [facility] [address] [place], [address] CO2 [Moles/Vol] 27.0 mmol/L Normal 21.0-32.0 [facility] Comment on above: Performed By: #### L 501.2450, L500.4050, L100.0100 #### [facility] [address] [place], [address] Creatinine [Mass/Vol] 1.11 mg/dL Normal 0.70-1.30 [facility] Comment on above: Result Comment: The validity of the calculated GFR GFRAA in patients over 70 years has not been determined. Clinical correlation is essential. Performed By: #### L 501.2450, L500.4050, L100.0100 #### [facility] [address] [place], [address] ECRCL 73.34 ml/min [facility] Comment on above: Performed By: #### L 501.2450, L500.4050, L100.0100 #### [facility] [address] [place], [address] EST GFR - AA 84 mL/min Normal >60 [facility] Comment on above: Result Comment: Afri can [place]vian GFR Calc Performed By: #### L 501.2450, L500.4050, L100.0100 #### [facility] [address] [place], [address] GAP 6 Normal 5-15 [facility] Comment on above: Performed By: #### L 501.2450, L500.4050, L100.0100 #### [facility] [address] [place], [address] GFR/1.73 sq M.predicted among non-blacks MDRD (S/P/Bld) [Vol rate/Area] 70 mL/min/{1.73_m2} Normal >60 [facility] Comment on above: Result Comment: Non- GFR Calc Performed By: #### L 501.2450, L500.4050, L100.0100 #### [facility] [address] [place], [address] Globulin (S) [Mass/Vol] 3.4 g/dL Normal 2.2-4.2 [facility] Comment on above: Performed By: #### L 501.2450, L500.4050, L100.0100 #### [facility] [address] [place], [address] Glucose [Mass/Vol] 101 mg/dL Normal 74-106 [facility] Comment on above: Result Comment: Fast ing Glucose result from 100 to 125 mg/dL suggests IMPAIRED HOMEOSTASIS per A.D.A. criteria. Performed By: #### L 501.2450, L500.4050, L100.0100 #### [facility] [address] [place], [address] Potassium [Moles/Vol] 4.4 mmol/L Normal 3.5-5.1 [facility] Comment on above: Performed By: #### L 501.2450, L500.4050, L100.0100 #### [facility] [address] [place], [address] Sodium [Moles/Vol] 139 mmol/L Normal 136-145 [facility] Comment on above: Performed By: #### L 501.2450, L500.4050, L100.0100 #### [facility] [address] [place], [address] T PROT 7.0 g/dL Normal 6.4-8.2 [facility] Comment on above: Performed By: #### L 501.2450, L500.4050, L100.0100 #### [facility] [address] [place], [address] Urea nitrogen [Mass/Vol] 27 mg/dL High 7-18 [facility] Comment on above: Performed By: #### L 501.2450, L500.4050, L100.0100 #### [facility] [address] [place], [address] Emergency Department Summary on 08-09-2024 Emergency Department Summary [facility] Medical Records Department [address] [place] [address] Emergency Department Summary 12/22/24 MR#: [id number] Acct: [id number] Name: WILLI RAMIREZ Rep #: [id number] : 1955 68 From: Talat Hayden DO PCP: [facility] Status:DEP ER Location: ED HPI History of Present Illness Chief Complaint: Flank Pain Informant: patient Onset/Context/Timing Onset: Yesterday Context: Sudden Onset Timing: Continuous Quality: Sharp, stabbing Location: Right flank Worsened by: Movement, standing Relieved by: Nothing Narrative Narrative: Patient presents with right flank pain began yesterday. Patient states it began rather suddenly. Patient states it has been constant. Patient describes it as sharp and stabbing. Patient states it is worse with certain movements such as standing. Patient states nothing seems to help with the pain. Patient denies any trauma or injury. Patient denies any fevers or chills. Patient denies any nausea or vomiting. Patient denies any urinary complaints. PFSH [facility] Medical History (Updated 08/09/24 @ 11:[address] Talat Hayden DO) Atrial fibrillation Hypertension Home Medications ???Medication ???Instructions ???Recorded ???Last Taken ???Type amlodipine 5 mg tablet 5 mg PO DAILY 08/09/24 Unknown History atorvastatin 10 mg tablet 10 mg PO DAILY 08/09/24 Unknown History lisinopril 20 mg tablet 20 mg PO DAILY 08/09/24 Unknown History rivaroxaban 20 mg tablet (Xarelto) 20 mg PO DAILY 08/09/24 Unknown History Allergy/AdvReac Type Severity Reaction Status Date / Time No Known Allergies Allergy Verified 03/03/21 14:23 Surgical History Hx of hemorrhoidectomy Hx of arthroscopic knee surgery Hx of shoulder surgery Social History Smoking Status: Never smoker ROS ROS ED Constitutional Constitutional ED: Denies chills or fever(s) Eyes Eyes: Denies blurry vision or change in vision ENT ENT ED: Denies rhinorrhea or sore throat Cardiovascular Cardiovascular: Denies chest pain or palpitations Respiratory/Chest Respiratory/Chest: Denies cough or dyspnea Gastrointestinal Gastrointestinal: Denies nausea or vomiting Genitourinary Genitourinary ED: Denies dysuria or hematuria Musculoskeletal Musculoskeletal: Reports back pain and neck pain Integumentary Denies abscess or rash Neurologic Neurologic: Denies headache(s) or weakness Allergic/Immunologic Allergic/Immunologic ED: Denies mouth swelling or urticaria EXAM Physical Exam Const Vital Signs: 08/09/24 09:02 08/09/24 11:02 Temperature 97.4 F L Temperature Source Temporal Pulse Rate 58 L 89 Respiratory Rate 19 H Blood Pressure 171/95 H 167/86 H Blood Pressure Mean 120 113 Pulse Ox 100 98 Positive well nourished and well developed General Appearance ED: well developed and NAD HEENT Reports moist mucous membranes Neck supple and no JVD Resp normal respiratory effort and clear to auscultation bilaterally Cardio regular rate and regular rhythm GI non-tender and non-distended Palpation: soft Extremity General Extremety ED: Negative for edema or tenderness General Extremity: Negative for edema Neuro oriented x3, CN's II-XII intact bilaterally and no sensory deficits noted Sensorium / Orientation: alert Motor Exam: strength 5/5 throughout Psych mental status grossly normal MDM MDM MDM Narrative Medical decision making narrative: Differential diagnosis includes ureteral calculus, pyelonephritis, cholecystitis, cholelithiasis, colitis, and muscular strain. CBC will be obtained to assess for leukocytosis and anemia. Comprehensive metabolic profile will be obtained to assess for hepatic function, renal function, and electrolyte abnormality. Urinalysis will be obtained to assess for urinary tract infection and hematuria. CT scan of the abdomen and pelvis will be obtained to assess for ureteral calculus, colitis, cholecystitis, and cholelithiasis. Lab Data Attestation: I reviewed the patient's lab results. Lab results narrative: CBC was reviewed and was within normal limits. Comprehensive metabolic profile was reviewed. BUN was slightly elevated at 27. The remainder is within normal limits. Lipase was reviewed and was mildly elevated at 127. Urinalysis was reviewed. There is no evidence of urinary tract infection or hematuria. Labs: Laboratory Results - last 24 hr 08/09/24 08/09/24 09:13 09:35 WBC 6.9 RBC 4.69 Hgb 14.6 Hct 42.6 MCV 90.8 MCH 31.1 MCHC 34.3 RDW Std Deviation 42.4 RDW Coeff of Chato 12.9 Plt Count 223 MPV 9.4 Immature Gran % (Auto) 0.100 Neut % (Auto) 50.6 Lymph % (Auto) 34.2 [place] % (Auto) 10.1 H Eo (more content not included)... [facility] Eosinophil percentageOrdered By: Talat Hayden on 08-09-2024 Eosinophils/100 WBC (Bld) 4.3 % 0-5 [facility] Epithelial cells.squamous LM Ql (Urine sed)Ordered By: Talat Hayden on 08-09-2024 Epithelial cells.squamous LM.HPF (Urine sed) [#/Area] 0 /[HPF] 0-5 [facility] Erythrocyte distribution wid th ratioOrdered By: Talat Hayden on 08-09-2024 Erythrocyte distribution width (RBC) [Ratio] 12.9 % 11.6-14.6 [facility] Erythrocyte distribution wid th standard deviationOrdered By: Talat Hayden on 08-09-2024 Erythrocyte distribution width (RBC) [Entitic vol] 42.4 fL 35.1-43.9 [facility] Estimated glomerular filtrat ion rate (GFR) AmericanOrdered By: Talat Hayden on 08-09-2024 Estimated GFR (MDRD) Amer 84 mL/min >60 [facility] Comment on above: GFR Calc Estimation of creatinine toma aranceOrdered By: Talat Hayden on 08-09-2024 Estimated Creatinine Clearance Calc 73.34 ml/min [facility] Glomerular filtration rate ( GFR) estimationOrdered By: Talat Hayden on 08-09-2024 Estimated GFR (MDRD) Non-Af Amer 70 mL/min >60 [facility] Comment on above: Non- GFR Calc Glucose Ql (U)Ordered By: Fabian Hayden on 08-09-2024 Urine Glucose (UA) Normal mg/dl Normal [facility] Glucose measurementOrdered B y: Talat Hayden on 08-09-2024 Glucose [Mass/Vol] 101 mg/dL 74-106 [facility] Comment on above: Fasting Glucose resu lt from 100 to 125 mg/dL suggests IMPAIRED HOMEOSTASIS per A.D.A. criteria. Hematocrit Auto (Bld) [Volum e fraction]Ordered By: Talat Hayden on 08-09-2024 Hematocrit (Bld) [Volume fraction] 42.6 % 40-54 [facility] Hemoglobin measurementOrdere d By: Talat Hayden on 08-09-2024 Hemoglobin (Bld) [Mass/Vol] 14.6 g/dL 13.0-16.5 [facility] Immature granulocytes/100 WB C Auto (Bld)Ordered By: Talat Hayden on 08-09-2024 Immature granulocytes/100 WBC (Bld) 0.100 % 0.0-0.9 [facility] Comment on above: IG% - Immature Granu locytes (promyelocytes, myelocytes and metamyelocytes) > 1% indicates that a LEFT SHIFT is Present. Ketones Test strip Ql (U)Ord ered By: Talat Hayden on 08-09-2024 Ketones Ql (U) Negative Negative [facility] - Chemistry and C hemistry - challengeOrdered By: Talat Hayden on 08-09-2024 AST [Catalytic activity/Vol] 24 U/L 15-37 [facility] Lipaseon 08-09-2024 Lipase [Catalytic activity/Vol] 127 U/L High 13-75 [facility] Comment on above: Result Comment: Plea se note: LIPASE revised reference range effective 22. New Lipase methodology. Expected to produce lower values than the previous assay method. NEW Reference Range: 13 - 75 U/L Performed By: #### L 501.2450, L500.4050, L100.0100 #### [facility] [address] [place] [address], [address] Lipase measurementOrdered By : Talat Hayden on 08-09-2024 Lipase [Catalytic activity/Vol] 127 U/L High 13-75 [facility] Comment on above: Please note:LIPASE r evised reference range effective 22. New Lipase methodology. Expected to produce lower values than the previous assay method. NEW Reference Range: 13 - 75 U/L Lymphocytes Auto (Unsp spec) [#/Vol]Ordered By: Talat Hayden on 08-09-2024 Lymphocytes (Bld) [#/Vol] 2.36 10*3/uL 0.83-4.51 [facility] Lymphocytes/100 WBC Auto (Un sp spec)Ordered By: Talat Hayden on 08-09-2024 Lymphocytes/100 WBC (Bld) 34.2 % 19-41 [facility] MCV (mean corpuscular volume ) determinationOrdered By: Talat Hayden on 08-09-2024 MCV (RBC) [Entitic vol] 90.8 fL 80-94 [facility] Mean corpuscular hemoglobin (MCH) determinationOrdered By: Talat Hayden on 08-09-2024 MCH (RBC) [Entitic mass] 31.1 pg 27.0-32.0 [facility] Mean corpuscular hemoglobin concentration (MCHC) determinationOrdered By: Talat Hayden on 08-09-2024 MCHC (RBC) [Mass/Vol] 34.3 g/dL 32-36 [facility] Mean platelet volume determi nationOrdered By: Talat Hayden on 08-09-2024 Platelet mean volume (Bld) [Entitic vol] 9.4 fL 6.2-12.0 [facility] Microscopic analysis of urin e for red blood cells (RBC)Ordered By: Talat Hayden on 08-09-2024 Urine RBC 0 SEEN /hpf 0-5 [facility] Monocyte percentageOrdered B y: Talat Hayden on 08-09-2024 Monocytes/100 WBC (Bld) 10.1 % High 0-10 [facility] Mucus LM Ql (Urine sed)Order ed By: Talat Hayden on 08-09-2024 Mucus Ql (Urine sed) 0 SEEN /hpf [facility] Neutrophil percentageOrdered By: Talat Hayden on 08-09-2024 Neutrophils/100 WBC (Bld) 50.6 % 47-70 [facility] Nitrite Test strip Ql (U)Ord ered By: Talat Hayden on 08-09-2024 Nitrite Ql (U) Negative Negative [facility] Nucleated red blood cell per centageOrdered By: Talat Hayden on 08-09-2024 Nucleated RBC/100 WBC (Bld) [Ratio] 0 % 0-5 [facility] Platelet countOrdered By: Fabian Hayden on 08-09-2024 Platelets (Bld) [#/Vol] 223 10*3/uL 150-450 [facility] Potassium measurementOrdered By: Talat Hayden on 08-09-2024 Potassium [Moles/Vol] 4.4 mmol/L 3.5-5.1 [facility] Protein Test strip Ql (U)Ord ered By: Talat Hayden on 08-09-2024 Protein Ql (U) Negative Negative [facility] RBC Auto (Bld) [#/Vol]Ordere d By: Talat Hayden on 08-09-2024 RBC (Bld) [#/Vol] 4.69 10*6/uL 4.6-6.2 [facility] Serum anion gap measurementO rdered By: Talat Hayden on 08-09-2024 Anion gap [Moles/Vol] 6 mmol/L 5-15 [facility] Serum globulin measurementOr dered By: Talat Hayden on 08-09-2024 Globulin (S) [Mass/Vol] 3.4 g/dL 2.2-4.2 [facility] Serum or plasma alanine pablo otransferase (ALT) measurementOrdered By: Talat Hayden on 08-09-2024 ALT [Catalytic activity/Vol] 30 U/L 16-61 [facility] Serum or plasma albumin robert urement (mass/volume)Ordered By: Talat Hayden on 08-09-2024 Albumin [Mass/Vol] 3.6 g/dL 3.2-5.0 [facility] Serum or plasma alkaline letty sphatase measurementOrdered By: Talat Hayden on 08-09-2024 ALP [Catalytic activity/Vol] 63 U/L 45-117 [facility] Serum or plasma calcium robert urement (mass/volume)Ordered By: Talat Hayden on 08-09-2024 Calcium [Mass/Vol] 8.7 mg/dL 8.5-10.1 [facility] Serum or plasma creatinine m easurement (mass/volume)Ordered By: Talat Hayden on 08-09-2024 Creatinine [Mass/Vol] 1.11 mg/dL 0.70-1.30 [facility] Comment on above: The validity of the calculated GFR & GFRAA in patients over 70 years has not been determined. Clinical correlation is essential. Serum or plasma urea nitroge n measurement (mass/volume)Ordered By: Talat Hayden on 08-09-2024 Urea nitrogen [Mass/Vol] 27 mg/dL High 7-18 [facility] Sodium levelOrdered By: Talat Hayden on 08-09-2024 Sodium [Moles/Vol] 139 mmol/L 136-145 [facility] Total proteinOrdered By: Yumiko Hayden on 08-09-2024 Protein [Mass/Vol] 7.0 g/dL 6.4-8.2 [facility] Urinalysis, Completeon 08-09 AMORPHOUS 1+ Normal [facility] Comment on above: Order Comment: CLEAN CATCH Performed By: #### L 400.0001 #### [facility] [address] [place], [address] BACTERIA 1+ /hpf Normal None Seen [facility] Comment on above: Order Comment: CLEAN CATCH Performed By: #### L 400.0001 #### [facility] [address] [place], [address] EPI,SQUAMOUS 0 SEEN Normal 0-5 [facility] Comment on above: Order Comment: CLEAN CATCH Performed By: #### L 400.0001 #### [facility] [address] [place], [address] Mucus Ql (Urine sed) 0 SEEN Normal [facility] Comment on above: Order Comment: CLEAN CATCH Performed By: #### L 400.0001 #### [facility] [address] [place], [address] RBC 0 SEEN Normal 0-5 [facility] Comment on above: Order Comment: CLEAN CATCH Performed By: #### L 400.0001 #### [facility] [address] [place], [address] WBC 0 SEEN Normal 0-5 [facility] Comment on above: Order Comment: CLEAN CATCH Performed By: #### L 400.0001 #### [facility] [address] [place], [address] Urine blood detectionOrdered By: Talat Hayden on 08-09-2024 Urine Occult Blood Negative Negative [facility] Urine clarityOrdered By: Yumiko Hayden on 08-09-2024 Clarity (U) Clear Clear [facility] Urine color determinationOrd ered By: Talat Hayden on 08-09-2024 Color (U) Yellow Yellow [facility] Urine leukocyte esterase det ection by dipstickOrdered By: Talat Hayden on 08-09-2024 Leukocyte esterase Test strip Ql (U) Negative Negative [facility] Urine pHOrdered By: Talat rubalcava on 08-09-2024 pH (U) 6.0 [pH] 5.0 - 8.0 [facility] Urine sediment bacteria coun t by microscopy (number/high power field)Ordered By: Talat Hayden on 08-09-2024 Bacteria LM.HPF (Urine sed) [#/Area] 1 /[HPF] None [facility]en [facility] Urine specific gravity measu rementOrdered By: Talat Hayden on 08-09-2024 Specific gravity (U) [Rel density] 1.020 1.002-1.030 [facility] Urobilinogen Ql (U)Ordered B y: Talat Hayden on 08-09-2024 Urine Urobilinogen Normal mg/dl Normal [facility] White blood cell (WBC) count Ordered By: Talat Hayden on 08-09-2024 WBC (Bld) [#/Vol] 6.9 10*3/uL 4.4-11.0 [facility] White blood cell countOrdere d By: Talat Hayden on 08-09-2024 Urine WBC 0 SEEN /hpf 0-5 [facility] Basic metabolic 2000 panelon 10-31-2023 Anion gap [Moles/Vol] 10 mmol/L Normal 9-18 [facility] Comment on above: Order Comment: Speci men Type: BLOOD SPECIMEN Ordering Facility: [facility] Address: [address] [place] [address] Performed By: #### 1 9123-9, 41163-3 #### [facility] CLIA [id number] [address] [place] [address] [place] Calcium [Mass/Vol] 8.5 mg/dL Normal 8.5-10.2 [facility] Comment on above: Order Comment: Speci men Type: BLOOD SPECIMEN Ordering Facility: [facility] Address: [facility] [place] [address] Performed By: #### 1 9123-9, 61781-1 #### [facility] CLIA [id number] [address] [place] [address] [place] Chloride [Moles/Vol] 107 mmol/L High 97-105 [facility] Comment on above: Order Comment: Speci men Type: BLOOD SPECIMEN Ordering Facility: [facility] Address: [address] [place] [address] Performed By: #### 1 9123-9, 16193-4 #### [facility] CLIA [id number] [address] [place] [address] [place] CO2 [Moles/Vol] 23 mmol/L Normal 22-30 [facility] Comment on above: Order Comment: Speci men Type: BLOOD SPECIMEN Ordering Facility: [facility] Address: [address] [place] [address] Performed By: #### 1 9123-9, 56584-0 #### [employer] [facility] CLIA [id number] [address] [place] [address] [place] Creatinine [Mass/Vol] 1.05 mg/dL Normal 0.73-1.22 [facility] Comment on above: Order Comment: Speci men Type: BLOOD SPECIMEN [facility]ing Facility: [facility] Address: [address] [place] [address] Performed By: #### 1 9123-9, 18991-8 #### [employer] [facility] CLIA [id number] [address] [place] [address] [employer] [place] Creatinine and Glomerular filtration rate.predicted panel (S/P/Bld) 77 mL/min/1.73m??? Normal >=60 [facility] Comment on above: Order Comment: Speci men Type: BLOOD SPECIMEN Ordering Facility: [facility] Address: [address] [place] [address] Result Comment: Lay mated Glomerular Filtration Rate (eGFR) is calculated using the 2020 CKD-EPI creatinine equation. This equation utilizes serum creatinine, sex, and age as parameters. The creatinine assay has traceable calibration to isotope dilution-mass spectrometry. Refer to KDIGO guidelines for clinical interpretation. In patients with unstable renal function, e.g. those with acute kidney injury, the eGFR may not accurately reflect actual GFR. Performed By: #### 1 9123-9, 79238-7 #### [facility] CLIA [id number] [address] [place] [address] [place] Glucose [Mass/Vol] 122 mg/dL High 74-99 [facility] Comment on above: Order Comment: Sol muller Type: BLOOD SPECIMEN Ordering Facility: [facility] Address: [address] [place] [address] Result Comment: The [place] Diabetes Association (ADA) provides guidance for cutoff values for fasting glucose and random glucose. The ADA defines fasting as no caloric intake for at least 8 hours. Fasting plasma glucose results between 100 to 125 mg/dL indicate increased risk for diabetes (prediabetes). Fasting plasma glucose results greater than or equal to 126 mg/dL meet the criteria for diagnosis of diabetes. In the absence of unequivocal hyperglycemia, results should be confirmed by repeat testing. In a patient with classic symptoms of hyperglycemia or hyperglycemic crisis, random plasma glucose results greater than or equal to 200 mg/dL meet the criteria for diagnosis of diabetes. Reference: Standards of Medical Care in Diabetes 2016, [place] [employer] Association. Diabetes Care. 2016.39(Suppl 1). Performed By: #### 1 9123-9, 43783-2 #### [facility] CLIA [id number] [address] [place] [address] [place] Potassium [Moles/Vol] 3.9 mmol/L Normal 3.7-5.1 [facility] Comment on above: Order Comment: Sol muller Type: BLOOD SPECIMEN Ordering Facility: [facility] Address: [address] [place] [address] Performed By: #### 1 9123-9, 82826-1 #### [facility] CLIA [id number] [address] [place] [address] [employer] [place] Sodium [Moles/Vol] 140 mmol/L Normal 136-144 [facility] Comment on above: Order Comment: Speci men Type: BLOOD SPECIMEN Ordering Facility: [facility] Address: [address] [place] [address] Performed By: #### 1 9123-9, 66615-8 #### [facility] CLIA [id number] [address] [place] [address] [place] Urea nitrogen [Mass/Vol] 27 mg/dL High 9-24 [facility] Comment on above: Order Comment: Speci men Type: BLOOD SPECIMEN [facility]ing Facility: [facility] Address: [address] [place] [address] Performed By: #### 1 9123-9, 51867-3 #### [facility] CLIA [id number] [address] [place] [address] [place] CBC W Auto Differential pane l (Bld)on 10-31-2023 Basophils (Bld) [#/Vol] 0.04 10*3/uL Normal <0.11 [facility] Comment on above: Order Comment: Speci men Type: BLOOD SPECIMEN Ordering Facility: [facility] Address: [address] [place] [address] Performed By: #### 5 7021-8 #### [facility] CLIA [id number] [address] [place] [address] [employer] [place] Basophils/100 WBC (Bld) 0.7 % Normal [facility] Comment on above: Order Comment: Speci men Type: BLOOD SPECIMEN Ordering Facility: [facility] Address: [address] [place] [address] Performed By: #### 5 7021-8 #### [facility] CLIA [id number] [address] Differential cell count method Nom (Bld) Auto Normal [facility] Comment on above: Order Comment: Speci men Type: BLOOD SPECIMEN Ordering Facility: [facility] Address: [address] [place] [address] Performed By: #### 5 7021-8 #### [facility] CLIA [id number] [address] [place] [address] [place] Eosinophils (Bld) [#/Vol] 0.33 10*3/uL Normal <0.46 [facility] Comment on above: Order Comment: Speci men Type: BLOOD SPECIMEN Ordering Facility: [facility] Address: [address] [place] [address] Performed By: #### 5 7021-8 #### [facility] CLIA [id number] [address] [place] [address] [place] Eosinophils/100 WBC (Bld) 5.4 % Normal [facility] Comment on above: Order Comment: Speci men Type: BLOOD SPECIMEN Ordering Facility: [facility] Address: [address] [place] [address] Performed By: #### 5 7021-8 #### [facility] CLIA [id number] [address] [place] [address] [place] Erythrocyte distribution width (RBC) [Ratio] 12.9 % Normal 11.5-15.0 [facility] Comment on above: Order Comment: Speci men Type: BLOOD SPECIMEN Ordering Facility: [facility] Address: [address] [place] [address] Performed By: #### 5 7021-8 #### [facility] CLIA [id number] [address] [place] [address] [place] Hematocrit (Bld) [Volume fraction] 42.8 % Normal 39.0-51.0 [facility] Comment on above: Order Comment: Speci men Type: BLOOD SPECIMEN Ordering Facility: [facility] Address: [address] [place] [address] Performed By: #### 5 7021-8 #### [facility] CLIA [id number] [address] [place] [address] [place] Hemoglobin (Bld) [Mass/Vol] 14.5 g/dL Normal 13.0-17.0 [facility] Comment on above: Order Comment: Speci men Type: BLOOD SPECIMEN Ordering Facility: [facility] Address: [address] [place] [address] Performed By: #### 5 7021-8 #### [facility] CLIA [id number] [address] [place] [address] [place] Immature granulocytes (Bld) [#/Vol] 10*3/uL Normal <0.10 [facility] Comment on above: Order Comment: Speci men Type: BLOOD SPECIMEN Ordering Facility: [facility] Address: [address] [place] [address] Performed By: #### 5 7021-8 #### [facility] CLIA [id number] [address] [place] [address] [place] Immature granulocytes/100 WBC (Bld) 0.3 % Normal [facility] Comment on above: Order Comment: Speci men Type: BLOOD SPECIMEN Ordering Facility: [facility] Address: [address] [place] [address] Performed By: #### 5 7021-8 #### [facility] CLIA [id number] [address] [place] [address] [place] Lymphocytes (Bld) [#/Vol] 2.58 10*3/uL Normal 1.00-4.00 [facility] Comment on above: Order Comment: Speci men Type: BLOOD SPECIMEN Ordering Facility: [facility] Address: [address] [place] [address] Performed By: #### 5 7021-8 #### [facility] CLIA [id number] [address] [place] [address] [place] Lymphocytes/100 WBC (Bld) 42.2 % Normal [facility] Comment on above: Order Comment: Speci men Type: BLOOD SPECIMEN Ordering Facility: [facility] Address: [address] [place] [address] Performed By: #### 5 7021-8 #### [facility] CLIA [id number] [address] MCH (RBC) [Entitic mass] 31.8 pg Normal 26.0-34.0 [facility] Comment on above: Order Comment: Speci men Type: BLOOD SPECIMEN Ordering Facility: [facility] Address: [address] [place] [address] Performed By: #### 5 7021-8 #### [facility] CLIA [id number] [address] [place] MCHC (RBC) [Mass/Vol] 33.9 g/dL Normal 30.5-36.0 [facility] Comment on above: Order Comment: Speci men Type: BLOOD SPECIMEN Ordering Facility: [facility] Address: [address] [place] [address] Performed By: #### 5 7021-8 #### [facility] CLIA [id number] [address] MCV (RBC) [Entitic vol] 93.9 fL Normal 80.0-100.0 [facility] Comment on above: Order Comment: Speci men Type: BLOOD SPECIMEN Ordering Facility: [facility] Address: [address] [place] [address] Performed By: #### 5 7021-8 #### [facility] CLIA [id number] [address] [place] [address] Monocytes (Bld) [#/Vol] 0.56 10*3/uL Normal <0.87 [facility] Comment on above: Order Comment: Speci men Type: BLOOD SPECIMEN Ordering Facility: [facility] Address: [address] [place] [address] Performed By: #### 5 7021-8 #### [facility] CLIA [id number] [address] [place] [address] Monocytes/100 WBC (Bld) 9.2 % Normal [facility] Comment on above: Order Comment: Speci men Type: BLOOD SPECIMEN Ordering Facility: [facility] Address: [address] [place] [address] Performed By: #### 5 7021-8 #### [facility] CLIA [id number] [address] [place] [address] [place] Neutrophils (Bld) [#/Vol] 2.58 10*3/uL Normal 1.45-7.50 [facility] Comment on above: Order Comment: Speci men Type: BLOOD SPECIMEN Ordering Facility: [facility] Address: [address] [place] [address] Performed By: #### 5 7021-8 #### [facility] CLIA [id number] [address] [place] [address] [place] Neutrophils/100 WBC (Bld) 42.2 % Normal [facility] Comment on above: Order Comment: Speci men Type: BLOOD SPECIMEN Ordering Facility: [facility] Address: [address] [place] [address] Performed By: #### 5 7021-8 #### [facility] CLIA [id number] [address] [place] [address] [place] Nucleated RBC (Bld) [#/Vol] Normal [facility] Comment on above: Order Comment: Speci men Type: BLOOD SPECIMEN Ordering Facility: [facility] Address: [address] [place] [address] Performed By: #### 5 7021-8 #### [facility] CLIA [id number] [address] [place] [address] [place] Nucleated RBC/100 WBC (Bld) [Ratio] Normal [facility] Comment on above: Order Comment: Speci men Type: BLOOD SPECIMEN Ordering Facility: [facility] Address: [address] [place] [address] Performed By: #### 5 7021-8 #### [facility] CLIA [id number] [address] [place] [address] [place] Platelet mean volume (Bld) [Entitic vol] 9.6 fL Normal 9.0-12.7 [facility] Comment on above: Order Comment: Speci men Type: BLOOD SPECIMEN Ordering Facility: [facility] Address: [address] [place] [address] Performed By: #### 5 7021-8 #### [facility] CLIA [id number] [address] [place] [address] [facility] Platelets (Bld) [#/Vol] 219 10*3/uL Normal 150-400 [facility] Comment on above: Order Comment: Speci men Type: BLOOD SPECIMEN Ordering Facility: [facility] Address: [address] [place] [address] Performed By: #### 5 7021-8 #### [facility] CLIA [id number] [address] RBC (Bld) [#/Vol] 4.56 10*6/uL Normal 4.20-6.00 [facility] Comment on above: Order Comment: Speci men Type: BLOOD SPECIMEN [facility] Facility: [facility] Address: [address] [place] [address] Performed By: #### 5 7021-8 #### [facility] CLIA [id number] [address] WBC (Bld) [#/Vol] 6.11 10*3/uL Normal 3.70-11.00 [facility] Comment on above: Order Comment: Speci men Type: BLOOD SPECIMEN [facility]ing Facility: [facility] Address: [address] [place] [address] Performed By: #### 5 7021-8 #### [facility] CLIA [id number] [address] [place] [address] [facility] ECG COMPLETEon 10-31-2023 ECG COMPLETE Ventricular Rate : 9 4 BPM QRS Duration : 84 ms Q-T Interval : 346 ms QTC Calculation(Bazett) : 432 ms Calculated R Ennis : 77 degrees Calculated T Ennis : -7 degrees ATRIAL FIBRILLATION ABNORMAL QRS-T ANGLE, CONSIDER PRIMARY T WAVE ABNORMALITY ABNORMAL ECG NO PREVIOUS ECGS AVAILABLE Confirmed by MD [place], GRIS ([id number]) on 11/03/2023 11:34:30 PM NAME : WILLI RAMIREZ PID : [id number] : 1955 Gender : Male Race : ORD : [id number] Procedure Date : Oct 31 2023 04:27:03 Edit Date : Nov 03 2023 23:34:31 Diagnosis: ATRIAL FIBRILLATION ABNORMAL QRS-T ANGLE, CONSIDER PRIMARY T WAVE ABNORMALITY ABNORMAL ECG NO PREVIOUS ECGS AVAILABLE Confirmed by MD CASIANO VINAYAK ([id number]) on 11/03/2023 11:34:30 PM Test Reason : Chest Pain Location : 191 : [facility] ED Overread By : MD CASIANO VINAYAK Edited By : MD CASIANO VINAYAK Referred By : , Acquired by : KADE AMIN [facility] ED NOTEon 10-31-2023 ED NOTE HNO ID: [id number] Author: KATHY JONES RN Service: Emergency Medicine Author Type: Registered Nurse Type: ED Notes Filed: 11/01/2023 08:33 Note Text: Emergency Services: ED Call Back Questionnaire SERVICE DATE: 10/31/2023 Are you feeling better? Yes Any questions about discharge instructions and follow-up care? No Were you able to make a follow up appointment? Yes Do you have any further questions? No Is there anything that we could have done differently to improve your ED visit? No SIGNATURE: Kathy Jones RN PATIENT NAME: Willi Ramirez DATE: November 01, 2023 TIME: 8:33 AM [facility] ED NOTE HNO ID: [id number] Author: EUGENIA BERNABE RN Service: Emergency Medicine Author Type: Registered Nurse Type: ED Notes Filed: 10/31/2023 06:41 Note Text: Dc instr to fu w pmd, return prn. Patient remains AANDO, wdp, resps unlabored, speech clear. Denies c/o. Ambulates from ER. [facility] ED NOTE HNO ID: [id number] Author: EUGENIA BERNABE RN Service: Emergency Medicine Author Type: Registered Nurse Type: ED Notes Filed: 10/31/2023 04:24 Note Text: Patient states fine yesterday, this morning got up to use bathroom, had difficult BM, felt clammy and sweaty. Spouse took BP and got low reading. Improved within 5-10 minutes. States felt better before EMS arrival. On arrival, patient is AANDO, wdp, resps unlabored, speech clear. Relaxed facial expression and posture. Does not appear to be in distress. Normal [facility] ED PROV NOTEon 10-31-2023 ED PROV NOTE HNO ID: [id number] Author: JAYY SANTOS MD Service: Emergency Medicine Author Type: Physician Type: ED Provider Notes Filed: 10/31/2023 06:39 Note Text: ED Provider Note Patient Name: Willi Ramirez : 1955 SERVICE DATE: 10/31/23 History Patient presents with: Hypotension HPI Patient is a 67-year-old gentleman with history as below, pertinent history of paroxysmal A-fib maintained on Xarelto presenting with a near syncopal episode. History is provided by patient, at the bedside. Reports that he woke up this morning about 3 AM for work. Went to have a bowel movement. States that he was wrestling with it as he was having difficulty going due to constipation and then as he was bearing down started to feel very lightheaded. Reports that he became clammy lightheaded as if he is going to pass out. No chest pain, palpitations or shortness of breath. States that he called out to his who brought the blood pressure cuff to the bathroom and checked his blood pressure with measurements of 70 systolic. Patient never blacked out had no vision changes, no changes in mental status. He stayed on the toilet and then allowed himself to rest for several minutes his called EMS. By the time EMS got there he had returned to baseline and symptoms have completely resolved. States that overall he feels well. 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 No missed doses of Eliquis. No recent sick symptoms or fevers or chills, nausea or vomiting. PAST MEDICAL HISTORY Diagnosis Date Abnormal chest CT 07/29/2015 Aortic valve regurgitation Moderate AI , echo 06/02 Bicuspid aortic valve Cardiomegaly Chest pain Elevated blood pressure Essential hypertension Foot pain, right Headache History of medical problems Dilatation of aortic sinutubular junction Hypertension Hypertensive disorder Left ventricular hypertrophy Moderate left ventricle hypertrophy Multiple nodules of lung Nontoxic single thyroid nodule Normocytic anemia Plantar fasciitis right Pulmonary nodules Rotator cuff injury Solitary pulmonary nodule 07/29/2015 Thyroid nodule Thyroid nodule TIA (transient ischemic attack) PAST SURGICAL HISTORY Procedure Laterality Date HEMORRHOIDECTOMY LUNG BIOPSY HX 02/2022 FAMILY HISTORY Problem Relation Age of Onset Diabetes Father other (Epilepsy [Other]) Father Social History Tobacco Use Smoking status: Never Smokeless tobacco: Never Vaping Use Vaping Use: Never used Substance and Sexual Activity Alcohol use: No Drug use: No Sexual activity: Not on file ALLERGIES No Known Allergies Review of Systems As per HPI Physical Exam Vitals [10/31/23 0419] BP Pulse Temp Temp src Resp SpO2 Weight Height 121/82 84 36.6 ?C (97.8 ?F) Temporal 18 98 % 88 kg (194 lb) -- Physical Exam Well-appearing, non-toxic and in no obvious distress. Hemodynamically stable and afebrile Heart RRR w/o murmurs; Distal pulses intact Lungs CTAB Abd soft, NT, ND Patient moves all 4 extremities spontaneously and without deficit No asymmetric calf pain or swelling Cranial nerves II through XII grossly intact without deficit: Pupils are equal round reactive to light extraocular movements are intact. Face is bilaterally symmetrical motor and sensory. No facial droop appreciated. Tongue is midline on protrusion. Speech is clear and crisp, patient alert and oriented ?3. 5 out of 5 strength, motor and sensory to extremities ?4. No findings on cerebellar testing with finger to nose or efoz-dw-pizp exam. Patient with even steady gait in the emergency room. Diagnostic Testing ED Labs Ordered and Reviewed BASIC METABOLIC PNL - Abnormal; Notable for the following components: Result Value Ref Range Glucose 122 (*) 74 - 99 mg/dL BUN 27 (*) 9 - 24 mg/dL Chloride 107 (*) 97 - 105 mmol/L All other components within normal limits MAGNESIUM BLD - Normal CBC + DIFF HIGH SENSITIVITY TROPONIN T (INITIAL) Procedures ED Course / Clinical Impression Clinical Impressions as of 10/31/23 0637 Vasovagal near syncope MDM / Disposition / Plan MDM Patient is a 67-year-old male with history as above presenting with complaints of near syncope. History and exam as above. Medical record reviewed. Additional encounters reviewed: [facility] HPI obtained from patient, EMS, who arrives to bedside Triage EKG was obtained and reviewed by myself. Patient noted to be in A-fib, rate controlled with ventricular rate of [address] or T wave changes indicative of ischemia. DDx considered: Presenting history I suspect this likely diagnosis of vasovagal episode as patient does report that he is bearing down and was constipated to having trouble going to the bathroom. No prodrome of chest pain, shortness (more content not included)... Normal [facility] HIGH SENSITIVITY TROPONIN T (INITIAL)on 10-31-2023 Troponin T.cardiac High sensitivity method [Mass/Vol] 10 ng/L Normal <12 [facility] Comment on above: Order Comment: Sol muller Type: BLOOD SPECIMEN [facility]ing Facility: [facility] Address: [address] [place] [address] Result Comment: When assessing risk for acute coronary syndromes: In patients undergoing blood draw greater than or equal to 2 hours from symptom onset, with history of very low to moderate risk and non-ischemic ECG, an initial hs-Troponin T less than 12 ng/L AND a 1 hour delta hs-Troponin T less than 3 ng/L should be considered very low risk for 30 day MACE. Performed By: #### L [id number] #### [facility] CLIA [id number] [address] [id number] [employer] [facility] [place] HIGH SENSITIVITY TROPONIN T (SECOND)on 10-31-2023 Troponin T.cardiac High sensitivity method [Mass/Vol] 11 ng/L Normal <12 [facility] Comment on above: Order Comment: Sol muller Type: BLOOD SPECIMENOrdering Facility: [facility] Address: [address] [place] [address] Result Comment: When assessing risk for acute coronary syndromes: In patients undergoing blood draw greater than or equal to 2 hours from symptom onset, with history of very low to moderate risk and non-ischemic ECG, an initial hs-Troponin T less than 12 ng/L AND a 1 hour delta hs-Troponin T less than 3 ng/L should be considered very low risk for 30 day MACE. Performed By: #### L [id number] ####[facility] [id number] [place] [address] [place] Magnesium SerPl-mCncon 10-30 Magnesium [Mass/Vol] 1.9 mg/dL Normal 1.7-2.3 [facility] Comment on above: Order Comment: Speci men Type: BLOOD SPECIMEN [facility] Facility: [facility] Address: [address] [place] [address] [address] [id number] Performed By: #### 1 9123-9, 59952-7 #### [facility] CLIA [id number] [address] [place] [id number] [employer] OF [facility] XR CHEST 1V FRONTALon 2023 XR CHEST 1V FRONTAL * * *Final Report* * * DATE OF EXAM: Oct 31 2023 4:53AM LDX 5290 - XR CHEST 1V FRONTAL / PROCEDURE REASON: Shortness of breath * * * * Physician Interpretation * * * * EXAMINATION: CHEST RADIOGRAPH (SINGLE VIEW AP OR PA) CLINICAL HISTORY: Shortness of breath MQ: XC1_5 Comparison: 07/08/2022 RESULT: Lines, tubes, and devices: None. Lungs and pleura: No consolidation. No lung mass. No pleural effusion. Cardiomediastinal silhouette: Normal cardiomediastinal silhouette. Other: No acute osseous findings. IMPRESSION: No acute radiographic abnormality. Retail Banker: KARRIE Transcribe Date/Time: Oct 31 2023 4:55A Dictated by : CHRISTY TRISTAN MD This examination was interpreted and the report reviewed and electronically signed by: CHRISTY TRISTAN MD on Oct 31 2023 4:55AM EST [id number] Normal [facility] XR HAND MINIMUM 3 VIEWS RIGH Ton 07-24-2023 XR HAND MINIMUM 3 VIEWS RIGHT ORIGINAL EXAMINATION: THREE XRAY VIEWS OF THE RIGHT HAND07/24/2023 10:16 am COMPARISON: None HISTORY: ORDERING SYSTEM PROVIDED HISTORY: Reason for Exam: pain, FINDINGS: No acute fracture, dislocation, bony lytic process is seen in the visualized bones and joints. Moderate degenerative changes in multiple metacarpophalangeal joints, proximal interphalangeal and distal interphalangeal joints. No significant erosive type of arthritis or soft tissue calcification. Carpus intact. no radiopaque foreign body. IMPRESSION: No acute fracture or dislocation. Mild degenerative changes in multiple small joints of hands. I have personally reviewed the images of this examination and agree with the resident's findings and interpretation. Interpreted by: Raúl Hines MD Preliminary Report By: Dago Winters Electronically signed By Raúl Hines MD Dictated Date: 07/24/2023 10:30:23 AM Prelim Date: 07/24/2023 10:38:15 AM Sign Date: 07/24/2023 10:38:15 AM [facility]ing [facility] X[facility] SHOULDER MINIMUM 2 VIEWS RIGHTon 07-24-2023 XR SHOULDER MINIMUM 2 VIEWS RIGHT ORIGINAL EXAMINATION: Four XRAY VIEWS OF THE RIGHT [id number]/6/2023 10:15 am COMPARISON: X-ray: 02/01/2023 HISTORY: ORDERING SYSTEM PROVIDED HISTORY: Reason for Exam: pain FINDINGS: No fracture or dislocation is identified. There are no abnormal periarticular calcifications. Glenohumeral joint appears unremarkable. Mild to moderate degenerative changes are present at the acromioclavicular joint. Widening of acromioclavicular joint space with mild elevation and tapering of distal clavicle, similar appearance as before, likely postoperative appearance. The included thoracic structures are unremarkable. IMPRESSION: No acute fracture or dislocation. 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 I have personally reviewed the images of this examination and agree with the resident's findings and interpretation. Interpreted by: Raúl Hines MD Preliminary Report By: Dago Winters Electronically signed By Raúl Hines MD Dictated Date: 07/24/2023 10:26:54 AM Prelim Date: 07/24/2023 10:38:01 AM Sign Date: 07/24/2023 10:38:01 AM Ordering Provider: BETSY GUZMÁN [facility] ([place]) ED NOTEon 02-10-2023 ED NOTE HNO ID: [id number] Author: Gladys Kirby RN Service: Emergency Medicine Author Type: Registered Nurse Type: ED Notes Filed: 02/11/2023 5:00 PM Note Text: Patient Call Back Information How are you doing ? better Did we appropriately manage your pain? Yes Did you understand your discharge instructions? Yes Did you get your prescriptions filled? Were you able to make a follow-up appointment with your physician? No Were you comfortable during your stay here? Yes Did a member of the ER nursing team round on you during your visit? Yes You will receive a patient satisfaction survey in the mail in the nest 2 weeks, please take the time to fill out the survey as your input from your ER visit is very important to us. Yes Can we do anything else to help you? No Normal [facility] ED NOTE HNO ID: [id number] Author: Katherine Mcdonald RN Service: ? Author Type: Registered Nurse Type: ED Notes Filed: 02/10/2023 4:27 PM Note Text: D/c instructions reviewed with pt who verbalized understanding. Pt's vss. Pt left ED ual and in stable condition. Normal [facility] ED NOTE HNO ID: [id number] Author: Katherine Mcdonald RN Service: ? Author Type: Registered Nurse Type: ED Notes Filed: 02/10/2023 2:31 PM Note Text: Pt comes to ED with L elbow pain after a fall 5 days ago at work. Pt denies LOC. He is AANDOx3, vss. Will continue to monitor. [facility] ED PROV NOTEon 02-10-2023 ED PROV NOTE HNO ID: [id number] Author: Ti Schultz MD Service: Emergency Medicine Author Type: Physician Type: ED Provider Notes Filed: 02/10/2023 7:58 PM Note Text: ED Provider Note Patient Name: Wilil Ramirez : 1955 SERVICE DATE: 02/10/23 History Patient presents with: Fall Elbow Injury Ceywk-iuph-vtbtkdqj male, presents emergency room concerns over left hand elbow pain. Patient was at work coming down some stairs tripped and fell holding a box landing on both elbows 5 days ago. Patient was initially seen for right upper extremity pain and however it returns now for left elbow pain. Patient notes his left elbow is not hurting him, however it is unable to straighten it, he has persistent pain. Arm Injury Severity: Mild Onset quality: Sudden Duration: fell at work last saturday. Progression: Worsening Chronicity: New Associated symptoms: no nausea, no rash and no vomiting PAST MEDICAL HISTORY Diagnosis Date Abnormal chest CT 07/29/2015 Aortic valve regurgitation Moderate AI , echo 06/02 Bicuspid aortic valve Cardiomegaly Chest pain Elevated blood pressure Essential hypertension Foot pain, right Headache History of medical problems Dilatation of aortic sinutubular junction Hypertension Hypertensive disorder Left ventricular hypertrophy Moderate left ventricle hypertrophy Multiple nodules of lung Nontoxic single thyroid nodule Normocytic anemia Plantar fasciitis right Pulmonary nodules Rotator cuff injury Solitary pulmonary nodule 07/29/2015 Thyroid nodule Thyroid nodule TIA (transient ischemic attack) PAST SURGICAL HISTORY Procedure Laterality Date HEMORRHOIDECTOMY LUNG BIOPSY HX 02/2022 FAMILY HISTORY Problem Relation Age of Onset Diabetes Father other (Epilepsy [Other]) Father Social History Tobacco Use Smoking status: Never Smokeless tobacco: Never Vaping Use Vaping Use: Never used Substance and Sexual Activity Alcohol use: No Drug use: No Sexual activity: Not on file ALLERGIES No Known Allergies Review of Systems Gastrointestinal: Negative for nausea and vomiting. Musculoskeletal: Negative for gait problem. Left elbow pain Skin: Negative for rash and wound. All other systems reviewed and are negative. Physical Exam Vitals [02/10/23 1424] BP Pulse Temp Temp src Resp SpO2 Weight Height 149/79 64 36.6 ?C (97.9 ?F) -- 16 98 % 81.6 kg (180 lb) 1.778 m (5' 10) Physical Exam Vitals and nursing note reviewed. Constitutional: General: He is not in acute distress. Appearance: Normal appearance. He is not ill-appearing or toxic-appearing. HENT: Head: Normocephalic and atraumatic. Eyes: General: Right eye: No discharge. Left eye: No discharge. Pulmonary: Effort: No respiratory distress. Musculoskeletal: General: Tenderness and signs of injury present. No swelling. Comments: Left upper extremity, is no obvious bony deformities, however the patient does keep his left elbow slightly flexed approximately 15 to 20 degrees. Patient is distally neurovascular intact, good full range of motion of his hand. There is tenderness the olecranon process, and as well as over the lateral process of the left elbow, there is no bony crepitance, there is no obvious effusion, is not clinically dislocated. There is no tenderness distally, or proximally, there is no tenderness of the shoulder girdle or clavicle Skin: General: Skin is warm and dry. Neurological: General: No focal deficit present. Mental Status: He is alert and oriented to person, place, and time. Mental status is at baseline. Psychiatric: Mood and Affect: Mood normal. Behavior: Behavior normal. Diagnostic Testing ED Labs Ordered and Reviewed - No data to display Procedures ED Course / Clinical Impression Clinical Impressions as of 02/10/231956 Elbow injury, left, initial encounter MDM / Disposition / Plan 67-year-old qrmee-bsoj-acbowwky male, presents the emergency room with concerns over left elbow pain and injury. Patient fell 5 years ago at work tripping on some stairs and was carrying a box and could not see, landing on both of his elbows. Patient was initially seen for right sided upper extremity injuries as he was not having pain in the left, however now he is having increasing pain left elbow, limited range of motion, and fully unable to extend it. X-ray demonstrates no acute radiographic abnormalities, there is no fracture, no fat pad sign. Patient says limited range of motion, likely musculoskeletal in nature. I did offer him nonsteroidals, and elbow sling, and he deferred. Patient is given follow-up with orthopedics as needed for symptoms. Differential Diagnoses - elbow sprain is more likely for the following reason(s): xray without findings of fracture Disposition The patient was discharged. Counseled patient regarding radiology results. SIGNATURE: (more content not included)... Normal [facility] XR ELBOW 3V AP/LAT/OTHER LTo n 02-10-2023 XR ELBOW 3V AP/LAT/OTHER LT * * *Final Report* * * DATE OF EXAM: Feb 10 2023 3:04PM LDX 5324 - XR ELBOW 3V AP/LAT/OTHER LT / PROCEDURE REASON: Elbow trauma, no prior imaging * * * * Physician Interpretation * * * * XR ELBOW 3V AP/LAT/OTHER LT HISTORY: 67 years old Clinical information: Elbow trauma, no prior imaging fell a few days ago, difficulty straightening his arm today Fell 5 days ago on outstretched elbow, unable to straighten TECHNIQUE: Images: XR ELBOW 3V AP/LAT/OTHER LT Comparison: None. RESULT: No osteoarthritic changes of the elbow joint. No evidence of positive fat pad sign No fractures or dislocations are seen. IMPRESSION: No acute osseous traumatic abnormality. Follow-up and/or further imaging if clinically indicated to exclude a nondisplaced skull fracture. Retail Banker: KARRIE Transcribe Date/Time: Feb 10 2023 3:23P Dictated by : ENRIQUETA PARR MD This examination was interpreted and the report reviewed and electronically signed by: ENRIQUETA PARR MD on Feb 10 2023 3:25PM EST [id number] Normal [facility] XR SHOULDER MINIMUM 2 VIEWS RIGHTon 02-01-2023 XR SHOULDER MINIMUM 2 VIEWS RIGHT ORIGINAL EXAMINATION: TWO XRAY VIEWS OF THE RIGHT SHOULDER02/01/2023 1:55 pm COMPARISON: Chest radiograph 12/11/2015. HISTORY: ORDERING SYSTEM PROVIDED HISTORY: Reason for Exam: Pain. Patient fell at work today, right shoulder pain. FINDINGS: No fracture or dislocation of the shoulder is seen. The coracoclavicular and acromioclavicular relationships are maintained. Mild acromioclavicular degenerative changes. The humerus appears appropriately seated within the glenoid. The included thoracic structures are unremarkable. IMPRESSION: No acute osseous abnormality. I have personally reviewed the images of this examination and agree with the resident's findings and interpretation. Interpreted by: Joni Schmitz MD Preliminary Report By: Ronnie Rodriguez Electronically signed By Joni Schmitz MD Dictated Date: 02/01/2023 1:59:25 PM Prelim Date: 02/01/2023 2:22:30 PM Sign Date: 02/01/2023 2:22:30 PM Ordering Provider: LANRE BANGURA Normal [facility] ([place]) CBC W Auto Differential pane l (Bld)on 07-08-2022 Basophils (Bld) [#/Vol] 0.03 10*3/uL Normal <0.11 [facility] Comment on above: Order Comment: Speci men Type: BLOOD SPECIMEN [facility] Facility: [facility] Address: [address] [place] [id number] Performed By: #### 5 7021-8 #### [facility] CLIA [id number] [address] [place] [address] [place] Basophils/100 WBC (Bld) 0.5 % Normal [facility] Comment on above: Order Comment: Speci men Type: BLOOD SPECIMEN Ordering Facility: [facility] Address: [address] [address] Performed By: #### 5 7021-8 #### [facility] CLIA [id number] [address] [place] [address] [place] Differential cell count method Nom (Bld) Auto Normal [facility] Comment on above: Order Comment: Speci men Type: BLOOD SPECIMEN [facility] Facility: [facility] Address: [address] [address] Performed By: #### 5 7021-8 #### [facility] CLIA [id number] [address] [place] [address] [place] Eosinophils (Bld) [#/Vol] 0.23 10*3/uL Normal <0.46 [facility] Comment on above: Order Comment: Speci men Type: BLOOD SPECIMEN [facility] Facility: [facility] Address: [address] [place] [address] Performed By: #### 5 7021-8 #### [facility] CLIA [id number] [address] [place] [address] [place] Eosinophils/100 WBC (Bld) 3.6 % Normal [facility] Comment on above: Order Comment: Speci men Type: BLOOD SPECIMEN [facility] Facility: [facility] Address: [address] [place] [address] Performed By: #### 5 7021-8 #### [facility] CLIA [id number] [address] [place] [address] [place] Erythrocyte distribution width (RBC) [Ratio] 13.1 % Normal 11.5-15.0 [facility] Comment on above: Order Comment: Speci men Type: BLOOD SPECIMEN [facility] Facility: [facility] Address: [address] [place] [address] Performed By: #### 5 7021-8 #### [facility] CLIA [id number] [address] [place] [address] [place] Hematocrit (Bld) [Volume fraction] 44.0 % Normal 39.0-51.0 [facility] Comment on above: Order Comment: Speci men Type: BLOOD SPECIMEN [facility] Facility: [facility] Address: [address] [address] Performed By: #### 5 7021-8 #### [facility] CLIA [id number] [address] [place] [address] [place] Hemoglobin (Bld) [Mass/Vol] 14.7 g/dL Normal 13.0-17.0 [facility] Comment on above: Order Comment: Speci men Type: BLOOD SPECIMEN [facility] Facility: [facility] Address: [address] [place] [address] Performed By: #### 5 7021-8 #### [facility] CLIA [id number] [address] [place] [address] [place] Lymphocytes (Bld) [#/Vol] 2.18 10*3/uL Normal 1.00-4.00 [facility] Comment on above: Order Comment: Speci men Type: BLOOD SPECIMEN [facility] Facility: [facility] Address: [address] [address] Performed By: #### 5 7021-8 #### [facility] CLIA [id number] [address] [place] [address] [place] Lymphocytes/100 WBC (Bld) 34.0 % Normal [facility] Comment on above: Order Comment: Speci men Type: BLOOD SPECIMEN [facility] Facility: [facility] Address: [address] [address] Performed By: #### 5 7021-8 #### [facility] CLIA [id number] [address] [place] [address] [place] MCH (RBC) [Entitic mass] 30.5 pg Normal 26.0-34.0 [facility] Comment on above: Order Comment: Speci men Type: BLOOD SPECIMEN [facility] Facility: [facility] Address: [address] [place] [address] Performed By: #### 5 7021-8 #### [place] [facility] CLIA [id number] [address] [place] [address] [place] MCHC (RBC) [Mass/Vol] 33.4 g/dL Normal 30.5-36.0 [facility] Comment on above: Order Comment: Speci men Type: BLOOD SPECIMEN [facility] Facility: [facility] Address: [address] [address] Performed By: #### 5 7021-8 #### [facility] CLIA [id number] [address] [place] [address] [place] MCV (RBC) [Entitic vol] 91.3 fL Normal 80.0-100.0 [facility] Comment on above: Order Comment: Speci men Type: BLOOD SPECIMEN [facility] Facility: [facility] Address: [address] [place] [address] Performed By: #### 5 7021-8 #### [facility] CLIA [id number] [address] [place] [address] [place] Monocytes (Bld) [#/Vol] 0.44 10*3/uL Normal <0.87 [facility] Comment on above: Order Comment: Speci men Type: BLOOD SPECIMEN [facility] Facility: [facility] Address: [address] [address] Performed By: #### 5 7021-8 #### [facility] CLIA [id number] [address] [place] [address] [place] Monocytes/100 WBC (Bld) 6.9 % Normal [facility] Comment on above: Order Comment: Speci men Type: BLOOD SPECIMEN [facility] Facility: [facility] Address: [address] [address] Performed By: #### 5 7021-8 #### [facility] CLIA [id number] [address] [place] [address] [place] Neutrophils (Bld) [#/Vol] 3.54 10*3/uL Normal 1.45-7.50 [facility] Comment on above: Order Comment: Speci men Type: BLOOD SPECIMEN [facility] Facility: [facility] Address: [address] [address] Performed By: #### 5 7021-8 #### [facility] CLIA [id number] [address] [place] [address] [place] Neutrophils/100 WBC (Bld) 55.0 % Normal [facility] Comment on above: Order Comment: Speci men Type: BLOOD SPECIMEN [facility] Facility: [facility] Address: [address] [address] Performed By: #### 5 7021-8 #### [facility] CLIA [id number] [address] [place] [address] [place] Platelet mean volume (Bld) [Entitic vol] 9.2 fL Normal 9.0-12.7 [facility] Comment on above: Order Comment: Speci men Type: BLOOD SPECIMEN [facility] Facility: [facility] Address: [address] [address] Performed By: #### 5 7021-8 #### [facility] CLIA [id number] [address] [place] [address] [place] Platelets (Bld) [#/Vol] 228 10*3/uL Normal 150-400 [facility] Comment on above: Order Comment: Speci men Type: BLOOD SPECIMEN [facility] Facility: [facility] Address: [address] [address] Performed By: #### 5 7021-8 #### [facility] CLIA [id number] [address] [place] [address] [place] RBC (Bld) [#/Vol] 4.82 10*6/uL Normal 4.20-6.00 [facility] Comment on above: Order Comment: Speci men Type: BLOOD SPECIMEN Ordering Facility: [facility] Address: [address] [place] [address] Performed By: #### 5 7021-8 #### [facility] CLIA [id number] [address] [place] [address] [place] WBC (Bld) [#/Vol] 6.42 10*3/uL Normal 3.70-11.00 [facility] Comment on above: Order Comment: Speci men Type: BLOOD SPECIMEN Ordering Facility: [facility] Address: [address] [place] [address] Performed By: #### 5 7021-8 #### [facility] CLIA [id number] [facility] [place] [address] [place] CK SerPl-cCncon 07-08-2022 CK [Catalytic activity/Vol] 93 U/L Normal 51-298 [facility] Comment on above: Order Comment: Speci men Type: BLOOD SPECIMEN Ordering Facility: [facility] Address: [address] [place] [address] Performed By: #### L [id number], 6, , 83031-5 #### [facility] CLIA [id number] [address] [place] [address] OF [facility] Comprehensive metabolic 2000 panelon 07-08-2022 Albumin [Mass/Vol] 4.4 g/dL Normal 3.9-4.9 [facility] Comment on above: Order Comment: Speci men Type: BLOOD SPECIMEN Ordering Facility: [facility] Address: [address] [place] [address] Performed By: #### L [id number], 2157-01, , 26913-2 #### [facility] CLIA [id number] [address] [place] [address] [place] ALP [Catalytic activity/Vol] 71 U/L Normal 38-113 [facility] Comment on above: Order Comment: Speci men Type: BLOOD SPECIMEN [facility]ing Facility: [facility] Address: [address] [place] [address] Performed By: #### L [id number], 2157-01, , 35376-5 #### [facility] CLIA [id number] [address] [place] [address] [place] ALT [Catalytic activity/Vol] 17 U/L Normal 10-54 [facility] Comment on above: Order Comment: Speci men Type: BLOOD SPECIMEN [facility]ing Facility: [facility] Address: [address] [place] [address] Performed By: #### L [id number], 2156-6, 00090-1, 53407-4 #### [facility] CLIA [id number] [address] [place] [address] [place] Anion gap [Moles/Vol] 10 mmol/L Normal 9-18 [facility] Comment on above: Order Comment: Speci men Type: BLOOD SPECIMEN [facility]ing Facility: [facility] Address: [address] [place] [address] Performed By: #### L [id number], 2157-01, 70405-0, 80911-8 #### [facility] CLIA [id number] [address] [place] [address] [place] AST [Catalytic activity/Vol] 24 U/L Normal 14-40 [facility] Comment on above: Order Comment: Speci men Type: BLOOD SPECIMEN [facility]ing Facility: [facility] Address: [address] [place] [address] Performed By: #### L [id number], 6, 90491-7, 81986-7 #### [facility] CLIA [id number] [address] [place] [address] [place] Bilirubin [Mass/Vol] 0.7 mg/dL Normal 0.2-1.3 [facility] Comment on above: Order Comment: Speci men Type: BLOOD SPECIMEN [facility]ing Facility: [facility] Address: [address] [place] [address] Performed By: #### L [id number], 6, 28618-3, 71203-6 #### [facility] CLIA [id number] [address] [place] [address] [place] Calcium [Mass/Vol] 9.5 mg/dL Normal 8.5-10.2 [facility] Comment on above: Order Comment: Speci men Type: BLOOD SPECIMEN Ordering Facility: [facility] Address: [place] [address] Performed By: #### L [id number], 2157-01, 19303-9, 47285-2 #### [facility] CLIA [id number] [address] [place] [address] [place] Chloride [Moles/Vol] 105 mmol/L Normal 97-105 [facility] Comment on above: Order Comment: Speci men Type: BLOOD SPECIMEN [facility]ing Facility: [facility] Address: [address] [place] [address] Performed By: #### L [id number], 2157-01, , 70609-6 #### [facility] CLIA [id number] [address] [place] [address] [place] CO2 [Moles/Vol] 25 mmol/L Normal 22-30 [facility] Comment on above: Order Comment: Speci men Type: BLOOD SPECIMEN [facility]ing Facility: [facility] Address: [address] [place] [address] Performed By: #### L [id number], 2157-01, , 68492-9 #### [facility] CLIA [id number] [address] [place] [address] [place] Creatinine [Mass/Vol] 1.14 mg/dL Normal 0.73-1.22 [facility] Comment on above: Order Comment: Speci men Type: BLOOD SPECIMEN [facility]ing Facility: [facility] Address: [address] [place] [address] Performed By: #### L [id number], 2157-01, , 66319-6 #### [facility] CLIA [id number] [address] [place] [address] [place] ESTIMATED GLOMERULAR FILTRATION RATE 70 mL/min/1.73m??? Normal >=60 [facility] Comment on above: Order Comment: Sol muller Type: BLOOD SPECIMEN Ordering Facility: [facility] Address: [address] [place] [id number] Result Comment: Lay mated Glomerular Filtration Rate (eGFR) is calculated using the 2020 CKD-EPI creatinine equation. This equation utilizes serum creatinine, sex, and age as parameters. The creatinine assay has traceable calibration to isotope dilution-mass spectrometry. Refer to KDIGO guidelines for clinical interpretation. In patients with unstable renal function, e.g. those with acute kidney injury, the eGFR may not accurately reflect actual GFR. Performed By: #### L [id number], 7-6, 51198-4, 00882-6 #### [facility] CLIA [id number] [address] [place] [address] [place] Glucose [Mass/Vol] 103 mg/dL High 74-99 [facility] Comment on above: Order Comment: Sol muller Type: BLOOD SPECIMEN [facility]ing Facility: [facility] Address: [address] [place], [place] [address] Result Comment: The [place] Diabetes Association (ADA) provides guidance for cutoff values for fasting glucose and random glucose. The ADA defines fasting as no caloric intake for at least 8 hours. Fasting plasma glucose results between 100 to 125 mg/dL indicate increased risk for diabetes (prediabetes). Fasting plasma glucose results greater than or equal to 126 mg/dL meet the criteria for diagnosis of diabetes. In the absence of unequivocal hyperglycemia, results should be confirmed by repeat testing. In a patient with classic symptoms of hyperglycemia or hyperglycemic crisis, random plasma glucose results greater than or equal to 200 mg/dL meet the criteria for diagnosis of diabetes. Reference: Standards of Medical Care in Diabetes 2016, [place] [employer] Association. Diabetes Care. 2016.39(Suppl 1). Performed By: #### L [id number], 7-6, 48824-6, 30855-1 #### [facility] CLIA [id number] [address] [place] [address] [place] Potassium [Moles/Vol] 4.3 mmol/L Normal 3.7-5.1 [facility] Comment on above: Order Comment: Sol muller Type: BLOOD SPECIMEN [facility]ing Facility: [facility] Address: [address] [place] [address] Performed By: #### L [id number], 6, 15572-9, 65072-8 #### [place] [facility] CLIA [id number] [address] [place] [address] [place] Protein [Mass/Vol] 7.3 g/dL Normal 6.3-8.0 [facility] Comment on above: Order Comment: Speci men Type: BLOOD SPECIMEN [facility] Facility: [facility] Address: [address] [place] [address] Performed By: #### L [id number], 2157-01, , #### [place] [facility] CLIA [id number] [address] [place] [address] [place] Sodium [Moles/Vol] 140 mmol/L Normal 136-144 [facility] Comment on above: Order Comment: Speci men Type: BLOOD SPECIMEN Ordering Facility: [facility] Address: [address] [place] [address] Performed By: #### L ON7400, 2157-01, , 72597-4 #### [facility] CLIA [id number] [address] [place] [address] [place] Urea nitrogen [Mass/Vol] 25 mg/dL High 9-24 [facility] Comment on above: Order Comment: Speci men Type: BLOOD SPECIMEN [facility] Facility: [facility] Address: [address] [place] [address] Performed By: #### L [id number], 2157-01, , 08621-1 #### [facility] CLIA [id number] [address] [place] [address] [place] D dimer FEU PPP-mCncon 07-08 Fibrin D-dimer FEU (PPP) [Mass/Vol] <190 Normal <500 [facility] Comment on above: Order Comment: Speci men Type: BLOOD SPECIMEN [facility]ing Facility: [facility] Address: [address] [place], [place] [address], [place] [address] Performed By: #### 4 8065-7 #### [place] [facility] [place] [id number] [address] [place] [address] [place] ECG COMPLETEon 07-08-2022 ECG COMPLETE Ventricular Rate : 6 4 BPM Atrial Rate : 64 BPM P-R Interval : 136 ms QRS Duration : 94 ms Q-T Interval : 420 ms QTC Calculation(Bazett) : 433 ms Calculated P Ennis : 41 degrees Calculated R Ennis : -26 degrees Calculated T Ennis : 40 degrees NORMAL SINUS RHYTHM POSSIBLE LEFT ATRIAL ENLARGEMENT LEFT VENTRICULAR HYPERTROPHY ABNORMAL ECG 1218 Confirmed by DO GARCIA ALAN ([id number]), editorial manager PEÑA AGUIAR ([id number]) on 07/09/2022 11:28:10 AM NAME : WILLI RAMIREZ PID : [id number] : 1955 Gender : Male Race : ORD : [id number] Procedure Date : Jul 08 2022 12:13:29 Edit Date : Jul 09 2022 11:28:12 Diagnosis: NORMAL SINUS RHYTHM POSSIBLE LEFT ATRIAL ENLARGEMENT LEFT VENTRICULAR HYPERTROPHY ABNORMAL ECG 1218 Confirmed by DO GARCIA ALAN ([id number]), editorial manager PEÑA AGUIAR ([id number]) on 07/09/2022 11:28:10 AM Test Reason : Chest Pain Location : 215 : BRUED [id number] Overread By : DO GARCIA ALAN Edited By : PEÑA AGUIAR Referred By : , Acquired by : Suresh WORTHY [facility] ED NOTEon 07-08-2022 ED NOTE HNO ID: [id number] Author: Gypsy Yun RN Service: Emergency Medicine Author Type: Registered Nurse Type: ED Notes Filed: 07/08/2022 2:25 PM Note Text: Patient discharged in stable condition. Discharge instructions reviewed. All questions answered at this time. Follow up care discussed. Normal [facility] ED NOTE HNO ID: [id number] Author: Francia Ko RN Service: Emergency Medicine Author Type: Registered Nurse Type: ED Notes Filed: 07/08/2022 12:02 PM Note Text: C/O left scapula pain x 4 weeks, Denies injury. States that the area hurts when his shirt rubs up against the area. Several weeks ago his saw 3 bumps on the skin of the area. Denies itching. Normal [facility] ED PROV NOTEon 07-08-2022 ED PROV NOTE HNO ID: [id number] Author: Maty Garcia DO Service: Emergency Medicine Author Type: Physician Type: ED Provider Notes Filed: 07/08/2022 2:09 PM Note Text: ED Provider Note Patient Name: Willi Ramirez : 1955 SERVICE DATE: 07/08/22 History Patient presents with: left scapular pain Rash 66-year-old male patient presents to ED. Patient presented to the emergency department complaining of a rash on his left back. It is actually been there for 4 weeks. He cannot tell me what it looked like initially. He is not vaccinated against shingles or zoster. He does not start to complain of any pain in the deep axillary and lateral left chest and shoulder. 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 He notes he still runs 5 miles a day but runs longer races up to 100 miles. He has no midline chest pain. He has no dyspnea no cough. No mopped assist. He is anticoagulated. He takes Xarelto and has not missed doses of that. Has not had any recent illnesses. Patient otherwise without specific complaints. He cannot gauge discomfort in the left axilla but he has no rash in that region. PAST MEDICAL HISTORY Diagnosis Date Abnormal chest CT 07/29/2015 Aortic valve regurgitation Moderate AI , echo 06/02 Bicuspid aortic valve Cardiomegaly Chest pain Elevated blood pressure Essential hypertension Foot pain, right Headache History of medical problems Dilatation of aortic sinutubular junction Hypertension Hypertensive disorder Left ventricular hypertrophy Moderate left ventricle hypertrophy Multiple nodules of lung Nontoxic single thyroid nodule Normocytic anemia Plantar fasciitis right Pulmonary nodules Rotator cuff injury Solitary pulmonary nodule 07/29/2015 Thyroid nodule Thyroid nodule TIA (transient ischemic attack) PAST SURGICAL HISTORY Procedure Laterality Date HEMORRHOIDECTOMY LUNG BIOPSY HX 02/2022 FAMILY HISTORY Problem Relation Age of Onset Diabetes Father other (Epilepsy [Other]) Father Social History Tobacco Use Smoking status: Never Smokeless tobacco: Never Vaping Use Vaping Use: Never used Substance and Sexual Activity Alcohol use: No Drug use: No Sexual activity: Not on file ALLERGIES No Known Allergies Review of Systems Constitutional: Negative for activity change and appetite change. HENT: Negative for congestion, drooling, rhinorrhea, sore throat, trouble swallowing and voice change. Eyes: Negative for photophobia, pain and visual disturbance. Respiratory: Negative for cough, chest tightness and shortness of breath. Cardiovascular: Positive for chest pain. Negative for leg swelling. Gastrointestinal: Negative for abdominal pain, blood in stool, constipation, diarrhea, nausea and vomiting. Genitourinary: Negative for decreased urine volume, dysuria, flank pain, frequency, hematuria and urgency. Musculoskeletal: Negative for back pain, joint swelling and neck pain. Skin: Positive for rash. Neurological: Negative for dizziness, weakness, light-headedness and headaches. Hematological: Negative for adenopathy. Psychiatric/Behavioral: The patient is not nervous/anxious. Physical Exam Vitals [07/08/22 1153] BP Pulse Temp Temp src Resp SpO2 Weight Height 179/94 67 36.4 ?C (97.6 ?F) Oral 20 96 % 90.7 kg (200 lb) -- Physical Exam Vitals and nursing note reviewed. Constitutional: General: He is not in acute distress. Appearance: He is well-developed. HENT: Head: Normocephalic. Nose: Nose normal. Eyes: General: No scleral icterus. Right eye: No discharge. Left eye: No discharge. Conjunctiva/sclera: Conjunctivae normal. Pupils: Pupils are equal, round, and reactive to light. Neck: Trachea: No tracheal deviation. Cardiovascular: Rate and Rhythm: Normal rate and regular rhythm. Heart sounds: Normal heart sounds. No murmur heard. Pulmonary: Effort: Pulmonary effort is normal. No respiratory distress. Breath sounds: Normal breath sounds. No wheezing. Chest: Chest wall: No tenderness. Abdominal: General: Bowel sounds are normal. There is no distension. Palpations: Abdomen is soft. There is no mass. Tenderness: There is no abdominal tenderness. There is no guarding or rebound. Musculoskeletal: General: No tenderness. Normal range of motion. Arms: Cervical back: Normal range of motion and neck supple. Comments: Small region of rash. Faintly red. No deep tissue induration or drainage. Possibly resolving shingles/zoster, although not classic at this point. Lymphadenopathy: Cervical: No cervical adenopathy. Skin: General: Skin is warm and dry. Findings: No rash. Neurological: Mental Status: He is alert and oriented to person, place, and time. Cranial Nerves: Cranial nerves 2-12 are intact. Sensory: Sensation is intact. Motor: Motor function is intact. Coordination: Coordination is intact. Gait: Gait is intact. Deep Tendon Reflexes: Reflexe (more content not included)... Normal [facility] Fibrin D-dimer FEU (PPP) [Ma ss/Vol]on 07-08-2022 D DIMER AGE-RELATED CUTOFF 670 ng/mL FEU Normal [facility] Comment on above: Order Comment: Sol muller Type: BLOOD SPECIMEN [facility] Facility: [facility] Address: [address] [place] [address] Performed By: #### 4 8065-7 #### [facility] CLIA [id number] [address] [place] [address] [place] HIGH SENSITIVITY TROPONIN T (INITIAL)on 07-08-2022 HIGH SENSITIVITY CARYL 13 ng/L High <12 [facility] Comment on above: Order Comment: Sol muller Type: BLOOD SPECIMEN [facility]ing Facility: [facility] Address: [address] [place] [address] Result Comment: When assessing risk for acute coronary syndromes: In patients undergoing blood draw greater than or equal to 2 hours from symptom onset, with history of very low to moderate risk and non-ischemic ECG, an initial hs-Troponin T less than 12 ng/L AND a 1 hour delta hs-Troponin T less than 3 ng/L should be considered very low risk for 30 day MACE. Performed By: #### L [id number], 2157-6, 68861-1, 59438-0 #### [facility] CLIA [id number] [address] [place] [address] [place] HIGH SENSITIVITY TROPONIN T (SECOND)on 07-08-2022 HIGH SENSITIVITY CARYL 12 ng/L High <12 [facility] Comment on above: Order Comment: Sol muller Type: BLOOD SPECIMENOrdering Facility: [facility] Address: [address] [place] [address] Result Comment: When assessing risk for acute coronary syndromes: In patients undergoing blood draw greater than or equal to 2 hours from symptom onset, with history of very low to moderate risk and non-ischemic ECG, an initial hs-Troponin T less than 12 ng/L AND a 1 hour delta hs-Troponin T less than 3 ng/L should be considered very low risk for 30 day MACE. Performed By: #### L [id number] ####[facility] [id number] [address] OF [facility] Magnesium SerPl-mCncon 07-08 Magnesium [Mass/Vol] 2.0 mg/dL Normal 1.7-2.3 [facility] Comment on above: Order Comment: Speci men Type: BLOOD SPECIMEN [facility] Facility[facility] Address: [address] [place], [place] [address] Performed By: #### L [id number], 2157-6, 19289-4, 77250-4 #### [facility] CLIA [id number] [address] [place] XR CHEST 1V FRONTAL PORTon 1 09-07-2021 XR CHEST 1V FRONTAL PORT * * *Final Report* * * DATE OF EXAM: Jul 08 2022 12:31PM BRX [id number] - XR CHEST 1V FRONTAL PORT / PROCEDURE REASON: Chest pain, nonspecific * * * * Physician Interpretation * * * * EXAMINATION: CHEST RADIOGRAPH (PORTABLE SINGLE VIEW AP) Exam Date/Time: 07/08/2022 12:31 PM CLINICAL HISTORY: Chest pain, nonspecific Left scapular pain x4 weeks MQ: XCPR_5 Comparison: 02/27/2016 RESULT: Lines, tubes, and devices: None. Lungs and pleura: No acute consolidation or pulmonary edema. Diminished central bronchial thickening compared to previous. No pleural effusion or pneumothorax. Cardiomediastinal silhouette: Stable cardiomediastinal silhouette. Other: Partial resection of the distal right clavicle. IMPRESSION: No acute radiographic abnormality. Retail Banker: KARRIE Transcribe Date/Time: Jul 08 2022 12:49P Dictated by : Jose SHULTZ MD This examination was interpreted and the report reviewed and electronically signed by: Jose SHULTZ MD on Jul 08 2022 12:57PM EST [id number] Normal [facility] Discharge Planning [id number] 0 09-20-2019 Discharge Planning Note2 Discharge Planning: Anticipated Discharge [id number] Discharge Planning Nursing note 09/20/2019 1220 Patient discharged home, IV removed discharge instructions explained and given. Discuss fu appt, medics Patient and verbalized understanding Lisa Yoder belt cutter: Discharge Planning Assessment [id number] Stated Reason for AdmissionMRI(1) [place] ([place]) Lives Withspouse(2) Living Arrangementstrailer(2) Resource/Environmental Concernsnone(1) Anticipated Transition [place](1) Services Anticipated at Transitionnon(1) Type of Equipment Currently In the [place]omen[place](2) Electronic Signatures: Lisa Yoder (SAMANTHA) (Signed 20-Sep-2019 12:19) Authored: Discharge Planning Note2 Last Updated: 20-Sep-2019 12:19 by Lisa Yoder (SAMANTHA) References: 1. Data Referenced From Patient Profile - Adult v2 19-Sep-2019 00:35 2. Data Referenced From PT Evaluation [id number] 19-Sep-2019 14:23 Normal [facility] Discharge [id number] Discharge Profile2 Discharge Orders: Anticipated Discharge Date: Anticipated Discharge [id number] Anticipated Discharge Time16:00 Problem List: Prelim Disch Dx: TIA (transient ischemic attack): Catalog Name: Transient cerebral ischemic attack, unspecified Hospital Providers: Provider RoleProvider Name Ketan Joseph DNAR: DNAR Statusnone Activity: activity as tolerated. May shower. 24 hours after a zio patch placed. May return to school/work On 09/23 Instructions: May drive. Diet: Dietregular Provider FINAL REVIEW of Orders: Final Review: Final Review of Medication Reconciliation and Orders Completedby Physician Reviewing ProviderSher Rob MD (Resident) at 20-Sep-2019 11:58:46 Appointments: Follow-Up Appointment 01: Physician/Dept/BenjyOp tometrist Call to Schedule in1 week CommentsPatient to call and schedule an appointment as soon as available after discharge Follow-Up Appointment 02: Physician/Dept/Yvonne P Reason for ReferralPost hospitalization + BP medications management Call to Schedule in1 week Scheduled Date/[id number] 00:00 CommentsAppointment scheduled prior to admission Follow-Up Appointment 03: Physician/Dept/BenjyNe urology stroke: Dr. Fraga Reason for ReferralTIA Call to Schedule in4 weeks Scheduled Date/[id number]-8049 16:[address] [place] [address] Phone [phone] CommentsOrder received after discharge. Electronic Signatures: Sher Rob (Resident)) (Signed 20-Sep-2019 11:58) Authored: Discharge Orders, Provider FINAL REVIEW of Orders, Appointments, Gold Form - Substation Maintenance Technician Summary Tania Flannery (PT ACC REP) (Signed 23-Sep-2019 16:35) Authored: Appointments Last Updated: 23-Sep-2019 16:35 by Tania Flannery (PT ACC REP) Normal [facility] GLUCOSE-POCTon 09-20-2019 Glucose [Mass/Vol] 98 mg/dL Normal 74 - 99 [facility] [place] Comment on above: Performed By: #### G CARLOS ENRIQUE ####[id number] [place] [address] Glucose [Mass/Vol] 89 mg/dL Normal 74 - 99 [facility] [place] Comment on above: Performed By: #### G CARLOS ENRIQUE ####[id number] [place] [address] TROPONIN Ion 09-20-2019 Troponin I.cardiac [Mass/Vol] ng/mL Normal 0.00 - 0.03 [facility] Comment on above: Result Comment: LESS THAN 0.04 NG/ML: NEGATIVE REPEAT TESTING IN THREE TO SIX HOURS IF CLINICALLY INDICATED. 0.04 - 0.5 NG/ML: CONSISTENT WITH POSSIBLE CARDIAC DAMAGE AND POSSIBLE INCREASED CLINICAL RISK. SERIAL MEASUREMENTS MAY HELP ASSESS EXTENT OF MYOCARDIAL DAMAGE. >0.5 NG/ML: CONSISTENT WITH CARDIAC DAMAGE, INCREASED CLINICAL RISK AND MYOCARDIAL INFARCTION. SERIAL MEASUREMENTS MAY HELP ASSESS EXTENT OF MYOCARDIAL DAMAGE. . Note: Troponin I testing is performed using different testing methodology at [facility] than at other [facility]. Direct result comparisons should only be made within the same method. . Patients receiving more than 5 mg/day of biotin may have interference in test results. A sample should be taken no sooner than eight hours after previous dose. Contact [phone] for additional information. Performed By: #### T ROP2 ####[id number] [place] [address] Admission Risk Screen - Adul ton 09-19-2019 Admission Risk Screen - Adult Allergies: Allergies: No Known Allergies: Patient Verification: New W ID Band Applied in my Departmentyes Patient Identity Verified Bypatient ID Band FULL Name, include Middle, spelling matches patient's ID used for verificationyes ID Band Matches Patient ID used for Verficationyes ID Band MRN Matches EMR MRNyes Advance Directive: Advance Directive/DNRno Advance Directive Information Givenpatient/family declined Falls Screen: Type of Assessmentadmission Risk for Injury Associated with Fallnone Fall Risk Conclusionmoderate falls risk with low risk for associated injury [place] Safety InterventionsWDL *orient to call system *instruct to call for assistance before getting out of bed *non-slip footwear when patient is out of bed *call wells in reach *personal items and telephone in reach *physically safe environment (no spills or clutter) *bed in lowest position with wheels locked *appropriate side rails in place *room/bathroom lighting operational, light cord in reach *appropriate signage on door Family Violence Screen: Are you or have you been threatened or abused physically, emotionally, or sexually by anyoneno Do you feel UNSAFE going back to the place where you are livingno Clinical assessment: Are there any apparent signs of injuries/behaviors that could be related to abuse/neglectno Social Service Consult for abuse/neglect needed this visitno Functional Screen: Functional Screen: In the recent/past 2-4 weeks, patient or family have noticedno issues that require a speech/language consult at this time AM-PAC- Basic Mobility/Daily Activity: Patient baseline bedboundno Turning from your back to your side while in a flat bed without using bedrailsnone Moving from lying on your back to sitting on the side of a flat bed without using bedrailsnone Moving to and from bed to chair (including a wheelchair)none Standing up from a chair using your arms (e.g. wheelchair or bedside chair) none To walk in hospital roomnone Climbing 3-5 steps with railingnone AM-PAC Basic Mobility- Total Score24 Learning Assessment (Patient): Patient is Able to be Assessed for Learningyes Factors Influencing Readiness to Learnacuteness of illness Factors that Impact Ability to Learnnone Devices/Methods Used to Communicateglasses Learning Preferencesaudio Cultural Considerationsnone Developmental Considerationsnone Sabianist Considerationsnone Learning Assessment (Other Learner): Other learner availableyes... Learnerspouse Factors Influencing Readiness to Learnacuteness of illness Factors that Impact Ability to Learnnone Devices/Methods Used to Communicateglasses Learning Preferencesaudio Cultural Considerationsnone Developmental Considerationsnone Sabianist Considerationsnone Suicide/Depression Screen: During the past month, have you often been bothered by feeling down, depressed or hopelessno During the past month, have you often had little interest or pleasure in doing thingsno Have you had any thoughts of harming yourselfno Have you had any thoughts of harming anyone elseno Adult Nutrition Screen: Have you recently lost weight without tryingno Have you been eating poorly because of a decreased appetiteno Malnutrition Screening Tool Score0 Malnutrition Screening Tool RiskMST = 0 or 1 Not at risk. Eating well with little or no weight loss Nutrition Consult needed this visitno Can Patient Participate in Room Serviceyes Patient requires Paper Dishes/Plastic Utensilsno Pain Screen: Pain Scalenumerical 0-10 Pain Scale Educationteaching provided Current Pain Level0 = None Acceptable Pain Level2 = Mild Expression of Pain (nonverbal)none Chronic Painno Spiritual Screen: Are there any cultural, spiritual, samaritan practices/values/needs that are important for us to knowno CAGE: Is this an injured patient at a Trauma Center ([facility]/[place] /[place]/Counselor): no Vaccinations: Vaccination - Influenza Vaccination Screen: Is it flu season (between and December 16)Yes Screening for identified contraindications to influenza vaccination patient/caregiver refusal Vaccination - Pneumonia Vaccination Screen: Patient has received a previous pneumonia vaccine:no/unknown... Immunocompetent persons with underlying chronic conditions or reside in long term care social worker care facilitiesnone of these conditions Persons with Functional or Anatomic Asplenianone of these conditions Immunocompromised Personsnone of these conditions Pneumonia vaccine NOT indicated due to:patient DOES NOT have a condition that indicates vaccination patient/caregiver refusal at this time Josef: Skin - Josef Scale: Josef: Sensory Perception (response to environment)(4) no impairment Josef: Moisture (degree skin exposed to moisture)(4) rarely moist Josef: Activity (ability to walk)(3) walks occasionally Josef: Mobility (amount/control of body movement)(4) no limitation Josef: Nutrition (quality of food intake)(3) adequate Josef: Friction and Shear(3) no apparent problem Josef: Score21 Significant Indicatiors: Significant Indicators: Complete Pressure Injury: Pressure Injury Present on Admissionno Electronic Signatures: Argenis Presley (SAMANTHA) (Signed 19-Sep-2019 00:57) Authored: Admission Risk Screens, Vaccinations, Josef, Pressure Injury Last Updated: 19-Sep-2019 00:57 by Argenis Presley (SAMANTHA) Normal [facility] BNPon 09-19-2019 Natriuretic peptide B (Bld) [Mass/Vol] 39 pg/mL Normal 0 - 99 [facility] Comment on above: Result Comment: . <1 00 pg/mL - Heart failure unlikely 100-299 pg/mL - Intermediate probability of acute heart . failure exacerbation. Correlate with clinical . context and patient history. >=300 pg/mL - Heart Failure likely. Correlate with clinical . context and patient history. BNP testing is performed using different testing methodology at [facility] than at other [facility]. Direct result comparisons should only be made within the same method. Performed By: #### B NP2 #### [facility] [id number] [place] [address] CBC AND DIFFERENTIALon 09-19 % AUTOMATED IMMATURE GRAN 0.2 % Normal 0.0 - 0.9 [facility] Comment on above: Result Comment: Perc ent differential counts (%) should be interpreted in the context of the absolute cell counts (cells/L). Performed By: #### C BCDF #### [facility] [address] [place] [address] Basophils (Bld) [#/Vol] 0.04 10*3/uL Normal 0.00 - 0.1 0 [facility] Comment on above: Performed By: #### C BCDF #### [facility] [address] [place] [address] Basophils/100 WBC (Bld) 0.8 % Normal 0.0 - 2.0 [facility] Comment on above: Performed By: #### C BCDF #### [facility] [address] [place] [address] Eosinophils (Bld) [#/Vol] 0.23 10*3/uL Normal 0.00 - 0.70 [facility] Comment on above: Performed By: #### C BCDF #### [facility] [address] [place] [address] Eosinophils/100 WBC (Bld) 4.7 % Normal 0.0 - 6.0 [facility] Comment on above: Performed By: #### C BCDF #### [facility] [address] [place] [address] Erythrocyte distribution width (RBC) [Ratio] 12.5 % Normal 11.5 - 14.5 [facility] Comment on above: Performed By: #### C BCDF #### [facility] [address] [place] [address] Hematocrit (Bld) [Volume fraction] 42.7 % Normal 41.0 - 52.0 [facility] Comment on above: Performed By: #### C BCDF #### [facility] [address] [place] [address] Hemoglobin (Bld) [Mass/Vol] 14.4 g/dL Normal 13.5 - 17.5 [facility] Comment on above: Performed By: #### C BCDF #### [facility] [address] [place] [address] Lymphocytes (Bld) [#/Vol] 1.92 10*3/uL Normal 1.20 - 4.80 [facility] Comment on above: Performed By: #### C BCDF #### [facility] [address] [place] [address] Lymphocytes/100 WBC (Bld) 39.6 % Normal 13.0 - 44.0 [facility] Comment on above: Performed By: #### C BCDF #### [facility] [address] [place] [address] MCHC (RBC) [Mass/Vol] 33.7 g/dL Normal 32.0 - 36.0 [facility] Comment on above: Performed By: #### C BCDF #### [facility] [address] [place] [address] MCV (RBC) [Entitic vol] 93 fL Normal 80 - 100 [facility] Comment on above: Performed By: #### C BCDF #### [facility] [address] [place] [address] Monocytes (Bld) [#/Vol] 0.41 10*3/uL Normal 0.10 - 1.0 0 [facility] Comment on above: Performed By: #### C BCDF #### [facility] [address] [place] [address] Monocytes/100 WBC (Bld) 8.5 % Normal 2.0 - 10.0 [facility] Comment on above: Performed By: #### C BCDF #### [facility] [address] [place] [address] Neutrophils (Bld) [#/Vol] 2.24 10*3/uL Normal 1.20 - 7.70 [facility] Comment on above: Performed By: #### C BCDF #### [facility] [address] [place] [address] Neutrophils/100 WBC (Bld) 46.2 % Normal 40.0 - 80.0 [facility] Comment on above: Performed By: #### C BCDF #### [facility] [address] [place] [address] Nucleated RBC/100 WBC (Bld) [Ratio] 0.0 /100 WBC Normal 0.0-0.0 [facility] Comment on above: Performed By: #### C BCDF #### [facility] [address] [place] [address] Platelets (Bld) [#/Vol] 187 10*3/uL Normal 150 - 450 [facility] Comment on above: Performed By: #### C BCDF #### [facility] [address] [place] [address] RBC (Bld) [#/Vol] 4.61 x10E12/L Normal 4.50 - 5.90 [facility] Comment on above: Performed By: #### C BCDF #### [facility] [address] [place] [address] WBC (Bld) [#/Vol] 4.9 10*3/uL Normal 4.4 - 11.3 [facility] [place] Comment on above: Performed By: #### C BCDF #### [facility] [address] [place] [address] GLUCOSE-POCTon 09-19-2019 Glucose [Mass/Vol] 117 mg/dL High 74 - 99 [facility] [place] Comment on above: Performed By: #### G CARLOS ENRIQUE ####[id number] [place] [address] Glucose [Mass/Vol] 99 mg/dL Normal 74 - 99 [facility] [place] Comment on above: Performed By: #### G CARLOS ENRIQUE ####[id number] [place] [address] Glucose [Mass/Vol] 80 mg/dL Normal 74 - 99 [facility] [place] Comment on above: Performed By: #### G CARLOS ENRIQUE #### [facility] [address] [place] [address] Glucose [Mass/Vol] 90 mg/dL Normal 74 - 99 [facility] [place] Comment on above: Performed By: #### G CARLOS ENRIQUE #### [facility] [address] [place] [address] HEMOGLOBIN A1Con 09-19-2019 HbA1c (Bld) [Mass fraction] 5.5 % Normal [facility] Comment on above: Result Comment: Diag nosis of Diabetes-Adults Non-Diabetic: < or = 5.6% Increased risk for developing diabetes: 5.7-6.4% Diagnostic of diabetes: > or = 6.5% . Monitoring of Diabetes Age (y) Therapeutic Goal (%) Adults: >18 <7.0 Pediatrics: 13-18 <7.5 7-12 <8.0 0- 6 7.5-8.5 [place] [employer]. Diabetes Care 33(S1), Aug 2009. Performed By: #### H BA1E ####[id number] [place] [address] HbA1c (Bld) [Mass fraction] 111 MG/DL Normal [facility] Comment on above: Performed By: #### H BA1E ####[id number] [place] [address] History and Physical - Neuro -Strokeon 09-19-2019 History and Physical - Neuro-Stroke History of Present Illness: Service: Service: Stroke History Present Illness: Admission Reason: Stroke HPI: Mr. Ramirez is a 63 y/o RH white man with HTN and chronic right ear tinnitus transferred from [place] for stroke work up, presented to the [place] ED this evening for transient stroke like symptoms. He was in his normal state of health until 3:30 AM 09/17 morning when he was driving to work (works at [employer]). He developed acute onset blurry vision in his right eye/feild and numbness in his right face, arm and leg lasted for 5 minutes then resolved spontaneously. He was fine for the rest of the day, even ran a couple of miles without issue. next day morning he woke up at 8 AM in his normal state of health. Around 12 PM, he was in the passenger seat when he developed a whole body fuzzy feeling and became extremely diaphoretic. No visual, sensory or motor symptoms at that time. This episode lasted 10 minutes, prompting him to come to the [facility] as he didn't feel right. In the ED, he was hemodynamically stable with a BP of 127/70 and HR of 60. NIHSS at [place] 2 for right hemibody sensory loss. CTH with left frontal and left frontoparietal hypodensities as well as bilateral hyperdensities in the transverse sinsuses. Not a tPA candidate given time window. NIHSS too low for MT. He was started on ASA 81mg, Atorvastatin and loaded with 300mg of Plavix. He was transferred to for MRI and further stroke workup. on arrival his NIHSS was 3for right arm and leg drift with partial right side numbness. Review of Systems: - Denies any headache, fever, chills, weakness, trouble speaking or word finding difficulty - 14 point ROS reviewed and otherwise negative except as stated above Past Medical/Surgical History: -HTN -Right eart tinnitus -Right rotator cuff repair Social History: - [employer] vet. Lives at home with his . 7 kids. 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 Works for [employer]. Denies tobacco, EtOH or illicit drug use. Family History: - Mom with many strokes, in 70s of CHF - Dad with Epilepsy and DM Home med; - LISINOPRIL 20MG daily Allergies: NKDA Comorbidities: Comorbid Conditionshypertension Allergies: No Known Allergies: Medications Prior to Admission: lisinopril 20 mg oral tablet: 1 tab(s) orally once a day. Objective Information: Objective Information: T PRBPSpO2 [id number]/8898% Date/Time09/18 23: 23: 23: 23: 23:00 Range(36.5C - 36.5C ) (53 - 53 ) (20 - 20 ) (178 - 178 )/ (88 - 88 ) (98% - 98% ) General Neurology: General Neurology Extensive Exam: General: Middle aged, white man resting in bed in NAD Heart: RRR, no murmurs Lungs: CTAB Abdomen: Soft, NT, ND Extremities: No peripheral edema Neurological Exam: MENTAL STATUS: General appearance: see above Orientation: AAOx4 Language: Expression, repetition, naming, comprehension intact Follows complex commands across midline Thought processes: Logical, organized Memory: 3/3 registration, 3/3 delayed recall Calculation: Able to count and add Concentration: Intact Fund of knowledge: Appropriate Judgment: Intact Insight: Intact CRANIAL NERVES: - Fundoscopic exam: No evidence of papilledema bilaterally - II/III: PERRL - II: Visual molina intact to confrontation bilaterally tested individually and together - III, IV, : EOMI to pursuit without nystagmus - V: V1-V3 sensation diminished on the right - VII: Face muscles symmetric with smile and eye closure - VIII: Intact to interview - IX, X: Palate elevated symmetrically bilaterally, no hoarseness - XI: 5/5 strength on shoulder shrugging bilaterally - XII: Tongue midline without atrophy or fasciculation MOTOR: Tone and bulk normal in all extremities STRENGTH: R L Deltoid 4+ 5 Biceps 4+ 5 Triceps 4+ 5 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 Pain and temp intact. PROPRIOCEPTION: Intact in toes and fingers bilaterally ROMBERG: Negative GAIT: deferred NIH Stroke Scale: Level of Consciousness: 0 = alert LOC Question: 0 = both correct LOC Commands: 0 = obeys both Best Gaze: 0 = normal Visual Field: 0 = no visual loss Facial Paresis: 0 = normal Left Upper Extremity: 0 = no drift; 10 seconds Right Upper Extremity: 1 = drift Dysarthria: 0 = normal Left Lower Extremity: 0 = no drift; 5 seconds Right Lower Extremity: 1 = drift Best Language: 0 = no aphasia Limb Ataxia: 0 = absent Sensory: 1 = partial loss Neglect: 0 = none NIHSS Score: 3 Pre-Admit Modified Amy Scale: Modified Arenac Scale: 0 = no prior stroke/prior stroke without symptoms IV tPA Exclusions and Consent: Contraindications for IV tPA Therapy: Time from last known well (or stroke onset) is > 4.5 hours. Assessment and Plan: Assessment: Mr. Ramirez is a 63 y/o RH white man with HTN and chronic right ear tinnitus transferred from [place] for stroke work up, he presented to [place] ED on the evening for transient foggy, right hemibody sensory loss as well as right eye blurry vision. LKN 09/17 on 3:30 morning, NIHSS 3 for right side drift and loss sensation, Out of window for tPA and NIHSS too low for thrombectomy (low suspicion for LVO). CTH with two frontal hypodensities concerning for subacute or remote infarct. in addition there was bilateral hyperdensities in the transverse sinuses concerning for SVT. However, patient denies any headache and has no evidence of papilledema on exam making SVT less likely. at [place] he was loaded with plavix and will continue aspirin and plavix as chance protocol for 3 weeks. Type: Cerebral Infarction. Subtype: likely embolic Vessels Involved: MCA and LISA Neurologic Manifestations: right side weakness Deficits: NIHSS 3 for right arm drift, right leg drift and partial right side numbness. Initial treatment: plavix load Anti-platelets or Anti-coagulation management: Aspirin, Plavix Vascular Risk Factors: HTN. BP at presentation and BP 178/82, goal: <180 Disposition: pending PT/OT # right frontal and parital infarct - Admit w/ telemonitoring - MRI/MRA head/neck stroke protocol - ASA 81mg daily - Atorva 40mg QHS - Keep SBP <180mmHg, give labetalol/hydralazine PRN - EKG, Troponin - TTE - LDL, HbA1c # HTN continue home med lisinopril. Misc - Keep NPO, pending bedside swallow eval - Monitor RFP, replete electrolytes as needed - ISS and hypoglycemia protocol - Enoxaparin + SCDs - PT/OT/[facility] PGY-3 addendum: 63 yo M w/ h/o HTN and chronic R ear tinnitus who is transferred from [place] with transient R vision blurriness and R hemisensory disturbance found to have L parietal and medial frontal hypodensity on CTH. LKN 2 days prior when he was driving back and noted numbness of his entire R side as well as some R eye visual disturbance lasting ~5min. He was unsure if there was weakness at that time since he was using his L hand to drive but does feel some difference today. He came in today due to an unusual warm sweaty sensation of his body lasting ~10 min. NIHSS 3 upon arrival for hemisensory loss and R hemiplegia. CTH reviewed and shows L LISA as well as MCA hypodensity likely embolic in etiology. Will further clarify with MRI and vessel imaging with MRA. TTE, tele monitoring and stroke w/u as above. Started on DAPT and atorvastatin at [place] and will continue in the interim. PT/OT Signatures/Attestation/C ertification: Note Completion: I am a: Resident/Fellow Attending AttestationI saw and evaluated the patient. I personally obtained the tavares and critical portions of the history and physical exam or was physically present for tavares and critical portions performed by the resident/fellow. I reviewed the resident/fellows documentation and discussed the patient with the resident/fellow. I agree with the resident/fellows medical decision making as documented in the note. I personally evaluated the patient [id number] Comments/ Additional Findings A couple transient neurologic events led him to seek medical care closer to home at first and subsequently at the [place] [facility]. Was seen by the neurology team at the [place] and CT of the head showed a couple hypodensities concerning for stroke. As MR imaging could not be performed on a weekend day, he was transferred to [facility] for further stroke workup. [facility]/A of the head and neck along with CT pending. Results will guide further treatment strategies and evaluations. If we see anything suggestive of potential cardioembolism, plan will be to place his eye patch on him before discharge. At this moment, he does not seem to have any PT/OT needs. Attending Provider Inpatient Certification StatementI certify this patients need for inpatient care based on the above documentation including; the order to admit as inpatient, the anticipated length of stay, diagnosis, problem list and plan of care, and discharge plan. Admission Order - View OnlyCurrent Admission Order. Admit to Inpatient Adult [facility] Admitting Diagnosis, I63.9 Stroke [facility] Admitting Service, Neuro - Stroke Level of Care, Med/Surg Ketan Fraga Electronic Signatures: Trevon Concepcion (Resident)) (Signed 19-Sep-2019 09:37) Authored: History of Present Illness, Medications Prior to Admission, Objective, Assessment and Plan, Signatures/Attestation/C ertification Willam Lobato ( (Resident)) (Signed 19-Sep-2019 00:52) Authored: History of Present Illness, Comorbidities, Allergies, Medications Prior to Admission, Objective, NIH Stroke Scale, Pre-Admit Modified Amy Scale, IV tPA Exclusions and Consent, Assessment and Plan, Signatures/Attestation/C ertification Ketan Fraga) (Signed 19-Sep-2019 13:15) Authored: Signatures/Attestation/C ertification Co-Signer: History of Present Illness, Assessment and Plan, Signatures/Attestation/C ertification Last Updated: 19-Sep-2019 13:15 by Ketan Fraga) Normal [facility] LIPID PANEL (CORONARY RISK 2 )on 09-19-2019 Cholesterol [Mass/Vol] 151 mg/dL Normal 0 - 199 [facility] Comment on above: Result Comment: . AGE DESIRABLE BORDERLINE HIGH HIGH 0-19 Y 0 - 169 170 - 199 >/= 200 20-24 Y 0 - 189 190 - 224 >/= 225 >24 Y 0 - 199 200 - 239 >/= 240 All ranges are based on fasting samples. Specific therapeutic targets will vary based on patient-specific cardiac risk. . Pediatric guidelines reference:Pediatrics 2011, 128(S5). Adult guidelines reference: NCEP ATPIII Guidelines, RENATO 2001, 258:2486-97 . Venipuncture immediately after or during the administration of Metamizole may lead to falsely low results. Testing should be performed immediately prior to Metamizole dosing. Performed By: #### L IPID #### [facility] [id number] [place] [address] Cholesterol in HDL [Mass/Vol] 38.9 mg/dL Abnormal [facility] Comment on above: Result Comment: . AGE VERY LOW LOW NORMAL HIGH 0-19 Y < 35 < 40 40-45 ---- 20-24 Y ---- < 40 >45 ---- >24 Y ---- < 40 40-60 >60 . Performed By: #### L IPID #### [facility] [address] [place] [address] Cholesterol in LDL [Mass/Vol] 91 mg/dL Normal 0 - 99 [facility] Comment on above: Result Comment: . NEAR BORD AGE DESIRABLE OPTIMAL HIGH HIGH VERY HIGH 0-19 Y 0 - 109 --- 110-129 >/= 130 ---- 20-24 Y 0 - 119 --- 120-159 >/= 160 ---- >24 Y 0 - 99 100-129 130-159 160-189 >/=190 . Performed By: #### L IPID #### [facility] [address] [place] [address] Cholesterol in VLDL [Mass/Vol] 21 mg/dL Normal 0 - 40 [facility] Comment on above: Performed By: #### L IPID #### [facility] [address] [place] [address] Cholesterol.total/Arelis sterol in HDL [Mass ratio] 3.9 {ratio} Normal [facility] Comment on above: Result Comment: REF VALUES DESIRABLE < 3.4 HIGH RISK > 5.0 Performed By: #### L IPID #### [facility] [address] [place] [address] Triglyceride [Mass/Vol] 104 mg/dL Normal 0 - 149 [facility] Comment on above: Result Comment: . AGE DESIRABLE BORDERLINE HIGH HIGH VERY HIGH 0 D-90 D 19 - 174 ---- ---- ---- 91 D- 9 Y 0 - 74 75 - 99 >/= 100 ---- 10-19 Y 0 - 89 90 - 129 >/= 130 ---- 20-24 Y 0 - 114 115 - 149 >/= 150 ---- >24 Y 0 - 149 150 - 199 200- 499 >/= 500 . Venipuncture immediately after or during the administration of Metamizole may lead to falsely low results. Testing should be performed immediately prior to Metamizole dosing. Performed By: #### L IPID #### [facility] [id number] [place] [address] NR MRA HEAD W/O Con 09-19-19 NR MRA HEAD W/O C Patient Name: WILLI RAMIREZ STUDY: MRI BRAIN WO; MRA NECK WO.C; MRA HEAD W/O C; 09/19/2019 3:00 pm; 09/19/2019 3:02 pm; 09/19/2019 3:01 pm INDICATION: R paresthesia. COMPARISON: None ACCESSION NUMBER(S): [id number]; [id number]; [id number] ORDERING CLINICIAN: WILLAM LOBATO TECHNIQUE: Axial T2, FLAIR, DWI, gradient echo T2 and sagittal and coronal T1 weighted images of brain were acquired. [id number] MRA of the head and neck was performed. The images were reviewed as source images and maximum intensity projections. FINDINGS: Brain: CSF Spaces: There is prominence of ventricles and sulci compatible with diffuse parenchymal volume loss. Parenchyma: The diffusion-images are somewhat degraded by artifact but demonstrate no definitive evidence of acute ischemic injury. There are scattered hyperintensities on FLAIR and T2 weighted imaging in the subcortical and periventricular white matter. There is no mass effect or midline shift. Paranasal Sinuses and Mastoids: There is mild mucosal thickening within scattered ethmoid air cells. There is partial opacification of bilateral mastoid air cells. MRA of head: Anterior circulation: There is expected flow signal in bilateral intracranial internal carotid arteries, bilateral carotid terminals, bilateral proximal anterior and middle cerebral arteries. Posterior circulation: Bilateral intracranial vertebral arteries, vertebrobasilar junction, basilar artery and proximal posterior cerebral arteries demonstrate expected flow signal. MRA of neck: The source images are mildly degraded by artifact. Right carotid vessels: There is expected flow signal in the visualized portion of the common carotid artery. There is mild attenuation of flow signal at the carotid bifurcation which may be secondary to flow related artifact. The internal carotid artery in the neck demonstrates expected flow signal. There is no measurable luminal narrowing. Left carotid vessels: There is expected flow signal in the visualized portion of the common carotid artery. There is mild attenuation of flow signal at the carotid bifurcation which may be secondary to flow related artifact. The internal carotid artery in the neck demonstrates expected flow signal. There is no measurable luminal narrowing. Vertebral vessels: The visualized segments of the cervical vertebral arteries demonstrate expected flow signal. IMPRESSION: MRI Brain: 1. Nonspecific white matter changes may represent small-vessel ischemic disease in a patient of this age. 2. Diffuse parenchymal volume loss. MRA: No evidence of major vessel cutoff or significant stenosis on MRA head and neck. Electronically signed by: DO Suresh WASHBURN [facility] NR MRA NECK WO.Con 0 NR MRA NECK WO.C Patient Name: WILLI RAMIREZ STUDY: MRI BRAIN WO; MRA NECK WO.C; MRA HEAD W/O C; 09/19/2019 3:00 pm; 09/19/2019 3:02 pm; 09/19/2019 3:01 pm INDICATION: R paresthesia. COMPARISON: None ACCESSION NUMBER(S): [id number]; [id number]; [id number] ORDERING CLINICIAN: WILLAM LOBATO TECHNIQUE: Axial T2, FLAIR, DWI, gradient echo T2 and sagittal and coronal T1 weighted images of brain were acquired. [id number] MRA of the head and neck was performed. The images were reviewed as source images and maximum intensity projections. FINDINGS: Brain: CSF Spaces: There is prominence of ventricles and sulci compatible with diffuse parenchymal volume loss. Parenchyma: The diffusion-images are somewhat degraded by artifact but demonstrate no definitive evidence of acute ischemic injury. There are scattered hyperintensities on FLAIR and T2 weighted imaging in the subcortical and periventricular white matter. There is no mass effect or midline shift. Paranasal Sinuses and Mastoids: There is mild mucosal thickening within scattered ethmoid air cells. There is partial opacification of bilateral mastoid air cells. MRA of head: Anterior circulation: There is expected flow signal in bilateral intracranial internal carotid arteries, bilateral carotid terminals, bilateral proximal anterior and middle cerebral arteries. Posterior circulation: Bilateral intracranial vertebral arteries, vertebrobasilar junction, basilar artery and proximal posterior cerebral arteries demonstrate expected flow signal. MRA of neck: The source images are mildly degraded by artifact. Right carotid vessels: There is expected flow signal in the visualized portion of the common carotid artery. There is mild attenuation of flow signal at the carotid bifurcation which may be secondary to flow related artifact. The internal carotid artery in the neck demonstrates expected flow signal. There is no measurable luminal narrowing. Left carotid vessels: There is expected flow signal in the visualized portion of the common carotid artery. There is mild attenuation of flow signal at the carotid bifurcation which may be secondary to flow related artifact. The internal carotid artery in the neck demonstrates expected flow signal. There is no measurable luminal narrowing. Vertebral vessels: The visualized segments of the cervical vertebral arteries demonstrate expected flow signal. IMPRESSION: MRI Brain: 1. Nonspecific white matter changes may represent small-vessel ischemic disease in a patient of this age. 2. Diffuse parenchymal volume loss. MRA: No evidence of major vessel cutoff or significant stenosis on MRA head and neck. Electronically signed by: DO Suresh WASHBURN [facility] NR MRI BRAIN WOon 09-19-2019 NR MRI BRAIN WO Patient Name: WILLI RAMIREZ STUDY: MRI BRAIN WO; MRA NECK WO.C; MRA HEAD W/O C; 09/19/2019 3:00 pm; 09/19/2019 3:02 pm; 09/19/2019 3:01 pm INDICATION: R paresthesia. COMPARISON: None ACCESSION NUMBER(S): [id number]; [id number]; [id number] ORDERING CLINICIAN: WILLAM LOBATO TECHNIQUE: Axial T2, FLAIR, DWI, gradient echo T2 and sagittal and coronal T1 weighted images of brain were acquired. [id number] MRA of the head and neck was performed. The images were reviewed as source images and maximum intensity projections. FINDINGS: Brain: CSF Spaces: There is prominence of ventricles and sulci compatible with diffuse parenchymal volume loss. Parenchyma: The diffusion-images are somewhat degraded by artifact but demonstrate no definitive evidence of acute ischemic injury. There are scattered hyperintensities on FLAIR and T2 weighted imaging in the subcortical and periventricular white matter. There is no mass effect or midline shift. Paranasal Sinuses and Mastoids: There is mild mucosal thickening within scattered ethmoid air cells. There is partial opacification of bilateral mastoid air cells. MRA of head: Anterior circulation: There is expected flow signal in bilateral intracranial internal carotid arteries, bilateral carotid terminals, bilateral proximal anterior and middle cerebral arteries. Posterior circulation: Bilateral intracranial vertebral arteries, vertebrobasilar junction, basilar artery and proximal posterior cerebral arteries demonstrate expected flow signal. MRA of neck: The source images are mildly degraded by artifact. Right carotid vessels: There is expected flow signal in the visualized portion of the common carotid artery. There is mild attenuation of flow signal at the carotid bifurcation which may be secondary to flow related artifact. The internal carotid artery in the neck demonstrates expected flow signal. There is no measurable luminal narrowing. Left carotid vessels: There is expected flow signal in the visualized portion of the common carotid artery. There is mild attenuation of flow signal at the carotid bifurcation which may be secondary to flow related artifact. The internal carotid artery in the neck demonstrates expected flow signal. There is no measurable luminal narrowing. Vertebral vessels: The visualized segments of the cervical vertebral arteries demonstrate expected flow signal. IMPRESSION: MRI Brain: 1. Nonspecific white matter changes may represent small-vessel ischemic disease in a patient of this age. 2. Diffuse parenchymal volume loss. MRA: No evidence of major vessel cutoff or significant stenosis on MRA head and neck. Electronically signed by: DO Suresh WASHBURN [facility] Patient Profile - Adult v2on 09-19-2019 Patient Profile - Adult v2 Profile: Initial Info: How to be AddressedRay Spoken Language PreferredEnglish Source of Informationpatient Are you currently using the Personal Electronic Health Record or NaturalPath MediaShareable Inkyes Stated Reason for AdmissionMRI Limitations on Visitors/Phone Callsnone Wants Family/Rep Notified of Admissionyes, primary contact Notify PCPnotify PCP Informed of Patient Visiting [place]yes [place] [facility] Patient Bel[facility]ings Remaining with Patientvision aids; jewelry Medications Brought to Hospitalno General Health: Weight in kg83.9 kilogram(s) Weight in rbd258 pound(s) Height in feet5 feet Height in jsbykb22 inch(es) Height in cm177.8 centimeter(s) BMI (kg/m2)26.539 square meter Weight Methodactual (measured) Scale Typebed Height Methodstated [facility] Based Care: How would you like to participate in your carekeep updated What is the number one concern for you during this hospitalizationfinding out what happened What is the most important thing we can do to support you during this hospitalizationgive 1 million dollars Is there anything we need to know to best care for younothing Substance: Current or Former Substance Use never: Cigarette/Tobacco, e-Cigarette/Vaping, Alcohol, Street Drugs Health Mgmt: Symptoms/Conditions Managed at H[facility] Barriers to Managing Healthnone Relationship/Environ: Primary Source of Support/Comfortspouse Lives Withspouse Living Arrangementshouse Resource/Environmental Concernsnone Anticipated Transition [facility]ral [facility] Services Anticipated at Transitionnone Significant IndicatorsComplete Information Review: Allergies, Home Meds and Significant Events have been Reviewed and Verified with Patient/Familyyes ALLERGY, INTOLERANCE, ADVERSE EVENT: Allergies: No Known Allergies: Active Electronic Signatures: Argenis Presley (SAMANTHA) (Signed 19-Sep-2019 01:00) Authored: Profile, Additional Information Last Updated: 19-Sep-2019 01:00 by Argenis Presley (SAMANTHA) Normal [facility] RENAL FUNCTION PANELon 09-19 Albumin [Mass/Vol] 3.8 g/dL Normal 3.4 - 5.0 [facility] [place] Comment on above: Performed By: #### R ENAL #### [facility] [address] [place] [address] Anion gap [Moles/Vol] 13 mmol/L Normal 10 - 20 [facility] Comment on above: Performed By: #### R ENAL #### [facility] [address] [place] [address] Calcium [Mass/Vol] 9.0 mg/dL Normal 8.6 - 10.6 [facility] [place] Comment on above: Performed By: #### R ENAL #### [facility] [address] [place] [address] Chloride [Moles/Vol] 109 mmol/L High 98 - 107 [facility] [place] Comment on above: Performed By: #### R ENAL #### [facility] [address] [place] [address] Creatinine [Mass/Vol] 1.06 mg/dL Normal 0.50 - 1.30 [facility] Comment on above: Performed By: #### R ENAL #### [facility] [address] [place] [address] GFR- AM. >60 Normal >60 [facility] Comment on above: Result Comment: CALC ULATIONS OF ESTIMATED GFR ARE PERFORMED USING THE MDRD STUDY EQUATION FOR THE IDMS-TRACEABLE CREATININE METHODS. CLIN CHEM 2007;53:766-72 Performed By: #### R ENAL #### [facility] [address] [place] [address] GFR-NON AM. >60 Normal >60 [facility] Comment on above: Performed By: #### R ENAL #### [facility] [address] [place] [address] Glucose [Mass/Vol] 82 mg/dL Normal 74 - 99 [facility] [place] Comment on above: Performed By: #### R ENAL #### [facility] [address] [place] [address] HCO3 (Bld) [Moles/Vol] 23 mmol/L Normal 21 - 32 [facility] Comment on above: Performed By: #### R ENAL #### [facility] [address] [place] [address] Phosphate [Mass/Vol] 3.8 mg/dL Normal 2.5 - 4.9 [facility] [place] Comment on above: Result Comment: The performance characteristics of phosphorus testing in heparinized plasma have been validated by the individual laboratory site where testing is performed. Testing on heparinized plasma is not approved by the FDA; however, such approval is not necessary. Performed By: #### R ENAL #### [facility] [address] [place] [address] Potassium [Moles/Vol] 4.1 mmol/L Normal 3.5 - 5.3 [facility] Comment on above: Performed By: #### R ENAL #### [facility] [address] [place] [address] Sodium [Moles/Vol] 141 mmol/L Normal 136 - 145 [facility] [place] Comment on above: Performed By: #### R ENAL #### [facility] [address] [place] [address] Urea nitrogen [Mass/Vol] 31 mg/dL High 6 - 23 [facility] Comment on above: Performed By: #### R ENAL #### [facility] [address] [place] [address] TROPONIN Ion 09-19-2019 Troponin I.cardiac [Mass/Vol] ng/mL Normal 0.00 - 0.03 [facility] Comment on above: Result Comment: LESS THAN 0.04 NG/ML: NEGATIVE REPEAT TESTING IN THREE TO SIX HOURS IF CLINICALLY INDICATED. 0.04 - 0.5 NG/ML: CONSISTENT WITH POSSIBLE CARDIAC DAMAGE AND POSSIBLE INCREASED CLINICAL RISK. SERIAL MEASUREMENTS MAY HELP ASSESS EXTENT OF MYOCARDIAL DAMAGE. >0.5 NG/ML: CONSISTENT WITH CARDIAC DAMAGE, INCREASED CLINICAL RISK AND MYOCARDIAL INFARCTION. SERIAL MEASUREMENTS MAY HELP ASSESS EXTENT OF MYOCARDIAL DAMAGE. . Note: Troponin I testing is performed using different testing methodology at [facility] than at other [facility]. Direct result comparisons should only be made within the same method. . Patients receiving more than 5 mg/day of biotin may have interference in test results. A sample should be taken no sooner than eight hours after previous dose. Contact [phone] for additional information. Performed By: #### T ROP2 #### [facility] [address] [place] [address] Basic Panelon 07-09-2018 Anion gap 3 molar conc 8 mmol/L Normal 8-20 [facility] Comment on above: Performed By: #### L P8 ####[facility] [place], [place] [address] Calcium mass conc 9.1 mg/dL Normal 8.5-10.1 [facility] Comment on above: Performed By: #### L P8 ####[address] [address] Chloride molar conc 103 mmol/L Normal 98-107 [facility] Comment on above: Performed By: #### L P8 ####[address] [address] CO2 molar conc 28 mmol/L Normal 21-32 [facility] Comment on above: Performed By: #### L P8 ####[address], [place] [address] Creatinine mass conc 1.07 mg/dL Normal 0.67-1.17 [facility] Comment on above: Performed By: #### L P8 ####[facility] [place], [place] [address] Glucose mass conc 107 mg/dL High 70-99 [facility] Comment on above: Performed By: #### L P8 ####[facility] [place], [place] [address] Potassium molar conc 3.9 mmol/L Normal 3.5-5.1 [facility] Comment on above: Performed By: #### L P8 ####[facility] [place], [place] [address] Sodium molar conc 135 mmol/L Low 136-145 [facility] Comment on above: Performed By: #### L P8 ####[facility] [place], [place] [address] Urea nitrogen mass conc (Bld) 22 mg/dL Normal 7-25 [facility] Comment on above: Performed By: #### L P8 ####[address] [address] Urea nitrogen/Creatinine mass ratio 21 mg/mg High 10-20 [facility] Comment on above: Performed By: #### L P8 ####[address] [address] [address] HEAD W/O CONTRASTon 07-09 CT HEAD W/O CONTRAST Performed at [facility] APPROVED BY: Jamal Corona MD EXAMINATION: CT BRAIN WITHOUT CONTRAST HISTORY: Severe frontal headache; possible subarachnoid hemorrhage TECHNIQUE: Routine CT scan of the brain without contrast. Serial axial unenhanced images were obtained from the vertex to the foramen magnum. CT Radiation dose: Integrated Dose-length product (DLP) for this visit = 882 mGy*cm.CT Dose Reduction Employed: No dose reduction techniques were required. COMPARISON: CT brain September 2016 RESULT: Images are mildly motion degraded Post-operative change: None. Acute change: No evidence of an acute infarct or other acute parenchymal process. Hemorrhage: No evidence of acute intracranial hemorrhage. Mass effect / Mass lesion: There is no evidence of an intracranial mass or extraaxial fluid collection. No significant mass effect. Chronic change: Scattered patchy foci of low attenuation are present within supratentorial white matter which is a nonspecific finding but likely represents mild microvascular ischemia. Ventricles: The ventricles are within normal limits of size and configuration for age. Paranasal sinuses and skull base: The visualized paranasal sinuses are clear. The skull base and imaged soft tissues are unremarkable. IMPRESSION: No acute intracranial abnormality is seen. Mild chronic microvascular ischemia of the white matter as detailed above. No significant change compared to September 2016. Normal [facility] Hemogram/Diffon 07-09-2018 Abs. Baso 0.02 thou/cmm Normal 0.00-0.08 [facility] Comment on above: Performed By: #### L CBCD ####[place] [address] Abs. Gonzales 0.40 thou/cmm Normal 0.20-1.00 [facility] Comment on above: Performed By: #### L CBCD ####[place] [address] Abs. Neut (ANC) 6.10 thou/cmm High 3.00-5.67 [facility] Comment on above: Performed By: #### L CBCD ####[address] [address] Basophils/100 WBC Auto (Bld) 0.3 % Normal [facility] Comment on above: Performed By: #### L CBCD ####[place] [address] Eosinophils Auto #/vol (Bld) 0.05 thou/cmm Normal 0.00-0.41 [facility] Comment on above: Performed By: #### L CBCD ####[address] [address] Eosinophils/100 WBC Auto (Bld) 0.7 % Normal [facility] Comment on above: Performed By: #### L CBCD ####[place] [address] Erythrocyte distribution width Auto Ratio (RBC) 12.4 % Normal 11.5-15.9 [facility] Comment on above: Performed By: #### L CBCD ####[address] [address] Hematocrit Auto Volume Fraction (Bld) 41.3 % Low 42.0-52.0 [facility] Comment on above: Performed By: #### L CBCD ####[address] [address] Hemoglobin mass conc (Bld) 14.2 g/dL Normal 14.0-18.0 [facility] Comment on above: Performed By: #### L CBCD ####[address] [address] Lymphocytes Auto #/vol (Bld) 1.03 thou/cmm Low 1.50-3.65 [facility] Comment on above: Performed By: #### L CBCD ####[address] [address] Lymphocytes/100 WBC Auto (Bld) 13.6 % Normal [facility] Comment on above: Performed By: #### L CBCD ####[address] [address] MCH Auto Entitic mass (RBC) 30.6 pg Normal 27.0-31.0 [facility] Comment on above: Performed By: #### L CBCD ####[address] [address] MCHC Auto mass conc (RBC) 34.4 % Normal 32.0-36.0 [facility] Comment on above: Performed By: #### L CBCD ####[address] [address] MCV Auto Entitic volume (RBC) 89.0 fL Normal 80.0-94.0 [facility] Comment on above: Performed By: #### L CBCD ####[address] [address] Monocytes/100 WBC Auto (Bld) 5.2 % Normal [facility] Comment on above: Performed By: #### L CBCD ####[address] [address] Platelet mean volume Auto Entitic volume (Bld) 9.3 fL Normal 7.1-10.5 [facility] Comment on above: Performed By: #### L CBCD ####[address] [address] Platelets Auto #/vol (Bld) 226 thou/cmm Normal 150-400 [facility] Comment on above: Performed By: #### L CBCD ####[place] [address] RBC Auto #/vol (Bld) 4.64 mil/cmm Normal 4.60-6.20 [facility] Comment on above: Performed By: #### L CBCD ####[place] [id number] Seg Neutrophil 80.2 % Normal [facility] Comment on above: Performed By: #### L CBCD ####[place] [address] WBC Auto #/vol (Bld) 7.6 thou/cmm Normal 4.8-10.8 [facility] Comment on above: Performed By: #### L CBCD ####[place] [address] MDRD eGFRon 07-09-2018 GFR/1.73 sq M predicted among non-blacks MDRD vol rate/area (S/P/Bld) mL/min/{1.73_m2} Normal >60mL/min/1 .73m2 [facility] Comment on above: Result Comment: If t he patient is , multiply the result by 1.210. Performed By: #### L GFR ####[place] [address] Troponin Ion 07-09-2018 Troponin I.cardiac mass conc ng/mL Normal <=0.07 [facility] Comment on above: Performed By: #### L TRP ####[address] [address] Urinalysis Routineon 018 Appearance Nom (U) CLEAR Normal [facility] Comment on above: Performed By: #### L P14 ####[address] [address] Bacteria LM.HPF #/area (Urine sed) FEW Abnormal None [facility] Comment on above: Performed By: #### L P14 ####[address] [address] Bilirubin Urine Negative Normal Negative [facility] Comment on above: Performed By: #### L P14 ####[place] [address] Color Nom (U) YELLOW Normal [facility] Comment on above: Performed By: #### L P14 ####[place] [address] Ep Cells Urine NONE Normal 0-5 [facility] Comment on above: Performed By: #### L P14 ####[place] [address] Glucose Ql (U) Negative Normal Negative [facility] Comment on above: Performed By: #### L P14 ####[place] [address] Hemoglobin,Urine Negative Normal Negative [facility] Comment on above: Performed By: #### L P14 ####[place] [address] Ketone Urine Negative Normal Negative [facility] Comment on above: Performed By: #### L P14 ####[address] [address] Leukocytes Esterase Negative Normal Negative [facility] Comment on above: Performed By: #### L P14 ####[place] [address] Nitrites Urine Negative Normal Negative [facility] Comment on above: Performed By: #### L P14 ####[place] [address] pH Test strip (U) 8.5 [pH] High 5.0-8.0 [facility] Comment on above: Performed By: #### L P14 ####[place] [address] Protein Urine Negative Normal Negative [facility] Comment on above: Performed By: #### L P14 ####[facility] [place] [address] RBC LM.HPF #/area (Urine sed) NONE Normal 0-3 [facility] Comment on above: Performed By: #### L P14 ####[facility] [place] [address] Specific [place], Ur 1.015 Normal 1.005-1.030 [facility] Comment on above: Performed By: #### L P14 ####[place] [address] Urobilinogen,Ur 0.2 EU/dL Normal 0.0-1.0 [facility] Comment on above: Performed By: #### L P14 ####[place] [address] WBC LM.HPF #/area (Urine sed) NONE Normal 0-5 [facility] Comment on above: Performed By: #### L P14 ####[place] [address] CKMB%on 03-23-2018 CK.MB mass conc 1.8 ng/mL Normal [facility] Comment on above: Result Comment: CKMB normal range :Normal < or = 5.[place] zone >5 & relative index < or = 4.AMI- CKMB > 5 & relative index >4. Performed By: #### L CKM% ####[place] [address] CPK 99 U/L Normal 39-308 [facility] Comment on above: Performed By: #### L CKM% ####[place] [address] CT ABDOMEN AND PELVIS W/O CO NTRASTon 03-23-2018 CT ABDOMEN AND PELVIS W/O CONTRAST Performed at [facility] APPROVED BY: Clay Sinclair MD EXAMINATION: CT ABDOMEN AND PELVIS WITHOUT IV CONTRAST CLINICAL HISTORY: Right abdominal/right flank pain.. TECHNIQUE: Non-IV contrast imaging of the abdomen and pelvis was performed using standard technique, scanning from just above the dome of the diaphragm to the symphysis pubis. Unenhanced imaging is limited for the evaluation of some intra-abdominal and pelvic pathology.MQ: [id number] Contrast:IV: NoneOral: None CT Radiation dose: Integrated Dose-length product (DLP) for this visit = 937.48 mGy*cm.CT Dose Reduction Employed: Automated exposure control (AEC) was used. COMPARISON: CT chest 05/25/2015. RESULT: Abdomen / Pelvis: Liver: Unremarkable. Biliary: The gallbladder is unremarkable. Spleen: No splenomegaly. Pancreas: Unremarkable. Adrenals: No mass. Kidneys: Mild right hydronephrosis due to a 1 mm calculus in the distal right ureter at the right ureterovesical junction. No other evidence of urinary calculi. The unenhanced kidneys are otherwise unremarkable. GI Tract: Normal appendix. The large and small bowel loops are within normal limits. Lymph Nodes: No lymphadenopathy. Mesentery/peritoneum: No ascites. Retroperitoneum: No mass. Vasculature: No abdominal aortic or iliac artery aneurysm. Pelvis: No mass or ascites. No urinary bladder calculi. Prostate gland size is within normal limits. Bones/Soft Tissues: No suspicious destructive osseous lesion. Lower thorax: A 6 mm nodule in the lateral left lower lobe that appears stable. The remaining visualized lung bases are clear. IMPRESSION: Mild right hydronephrosis due to a 1 mm distal right ureteral calculus at the right ureterovesical junction. Stable 6 mm lateral left lower lobe nodule most likely benign given its stability is most likely benign. Follow-up CT chest in 12 months is only suggested if the patient is at high risk for lung cancer. CT abdomen and pelvis is otherwise within normal limits given the limited noncontrast technique. Normal [facility] Comprehensive Panelon 2017 Albumin mass conc 3.7 g/dL Normal 3.4-5.0 [facility] Comment on above: Performed By: #### L P14 ####[address] [address] ALP enzyme act/vol 78 U/L Normal 46-116 [facility] Comment on above: Performed By: #### L P14 ####[address] [address] ALT-SGPT Blood 53 U/L Normal 14-63 [facility] Comment on above: Performed By: #### L P14 ####[facility] [place] [address] Anion gap 3 molar conc 7 mmol/L Low 8-20 [facility] Comment on above: Performed By: #### L P14 ####[place] [address] AST-SGOT Blood 33 U/L Normal 15-37 [facility] Comment on above: Performed By: #### L P14 ####[place] [address] Bilirubin Ql (U) 0.9 mg/dL Normal 0.2-1.0 [facility] Comment on above: Performed By: #### L P14 ####[place] [address] Calcium mass conc 8.8 mg/dL Normal 8.5-10.1 [facility] Comment on above: Performed By: #### L P14 ####[place] [address] Chloride molar conc 104 mmol/L Normal 98-107 [facility] Comment on above: Performed By: #### L P14 ####[place] [address] CO2 molar conc 28 mmol/L Normal 21-32 [facility] Comment on above: Performed By: #### L P14 ####[place] [address] Creatinine mass conc 1.37 mg/dL High 0.67-1.17 [facility] Comment on above: Performed By: #### L P14 ####[place] [address] Glucose mass conc 111 mg/dL High 70-99 [facility] Comment on above: Performed By: #### L P14 ####[place] [address] Potassium molar conc 4.4 mmol/L Normal 3.5-5.1 [facility] Comment on above: Performed By: #### L P14 ####[place] [address] Protein mass conc 7.1 g/dL Normal 6.4-8.2 [facility] Comment on above: Performed By: #### L P14 ####[place] [address] Sodium molar conc 134 mmol/L Low 136-145 [facility] Comment on above: Performed By: #### L P14 ####[place] [address] Urea nitrogen mass conc (Bld) 34 mg/dL High 7-25 [facility] Comment on above: Performed By: #### L P14 ####[place] [address] Urea nitrogen/Creatinine mass ratio 25 mg/mg High 10-20 [facility] Comment on above: Performed By: #### L P14 ####[place] [address] Hemogram/Diffon 03-23-2018 Abs. Baso 0.03 thou/cmm Normal 0.00-0.08 [facility] Comment on above: Performed By: #### L CBCD ####[place] [address] Abs. Gonzales 0.73 thou/cmm Normal 0.20-1.00 [facility] Comment on above: Performed By: #### L CBCD ####[place] [address] Abs. Neut (ANC) 6.31 thou/cmm High 3.00-5.67 [facility] Comment on above: Performed By: #### L CBCD ####[address] [address] Basophils/100 WBC Auto (Bld) 0.3 % Normal [facility] Comment on above: Performed By: #### L CBCD ####[place] [address] Eosinophils Auto #/vol (Bld) 0.21 thou/cmm Normal 0.00-0.41 [facility] Comment on above: Performed By: #### L CBCD ####[address] [address] Eosinophils/100 WBC Auto (Bld) 2.3 % Normal [facility] Comment on above: Performed By: #### L CBCD ####[place] [address] Erythrocyte distribution width Auto Ratio (RBC) 12.8 % Normal 11.5-15.9 [facility] Comment on above: Performed By: #### L CBCD ####[place] [address] Hematocrit Auto Volume Fraction (Bld) 38.5 % Low 42.0-52.0 [facility] Comment on above: Performed By: #### L CBCD ####[place] [address] Hemoglobin mass conc (Bld) 12.9 g/dL Low 14.0-18.0 [facility] Comment on above: Performed By: #### L CBCD ####[place] [address] Lymphocytes Auto #/vol (Bld) 2.02 thou/cmm Normal 1.50-3.65 [facility] Comment on above: Performed By: #### L CBCD ####[address] [address] Lymphocytes/100 WBC Auto (Bld) 21.7 % Normal [facility] Comment on above: Performed By: #### L CBCD ####[place] [address] MCH Auto Entitic mass (RBC) 31.2 pg High 27.0-31.0 [facility] Comment on above: Performed By: #### L CBCD ####[place] [address] MCHC Auto mass conc (RBC) 33.5 % Normal 32.0-36.0 [facility] Comment on above: Performed By: #### L CBCD ####[place] [address] MCV Auto Entitic volume (RBC) 93.0 fL Normal 80.0-94.0 [facility] Comment on above: Performed By: #### L CBCD ####[address] [address] Monocytes/100 WBC Auto (Bld) 7.8 % Normal [facility] Comment on above: Performed By: #### L CBCD ####[address] [address] Platelet mean volume Auto Entitic volume (Bld) 9.4 fL Normal 7.1-10.5 [facility] Comment on above: Performed By: #### L CBCD ####[address] [address] Platelets Auto #/vol (Bld) 215 thou/cmm Normal 150-400 [facility] Comment on above: Performed By: #### L CBCD ####[address] [address] RBC Auto #/vol (Bld) 4.14 mil/cmm Low 4.60-6.20 [facility] Comment on above: Performed By: #### L CBCD ####[address] [address] Seg Neutrophil 67.9 % Normal [facility] Comment on above: Performed By: #### L CBCD ####[address] [address] WBC Auto #/vol (Bld) 9.3 thou/cmm Normal 4.8-10.8 [facility] Comment on above: Performed By: #### L CBCD ####[address] [address] MDRD eGFRon 03-23-2018 GFR/1.73 sq M predicted among non-blacks MDRD vol rate/area (S/P/Bld) 55.72 mL/min/{1.73_m2} Normal >60mL/min/1 .73m2 [facility] Comment on above: Result Comment: If t he patient is , multiply the result by 1.210. Performed By: #### L GFR ####[address] [address] Urinalysis Routineon 018 Appearance Nom (U) CLEAR Normal [facility] Comment on above: Performed By: #### L URIN ####[place] [address] Bilirubin Urine see below Normal Negative [facility] Comment on above: Result Comment: Dete cted (Unable to confirm). Performed By: #### L URIN ####[place] [address] Color Nom (U) YELLOW Normal [facility] Comment on above: Performed By: #### L URIN ####[place] [address] Ep Cells Urine 0-2 Normal 0-5 [facility] Comment on above: Performed By: #### L URIN ####[place] [address] Glucose Ql (U) Negative Normal Negative [facility] Comment on above: Performed By: #### L URIN ####[place] [address] Hemoglobin,Urine 3+ Abnormal Negative [facility] Comment on above: Performed By: #### L URIN ####[place] [address] Ketone Urine Negative Normal Negative [facility] Comment on above: Performed By: #### L URIN ####[place] [address] Leukocytes Esterase Negative Normal Negative [facility] Comment on above: Performed By: #### L URIN ####[place] [address] Mucus Threads FEW Normal None [facility] Comment on above: Performed By: #### L URIN ####[place] [address] Nitrites Urine Negative Normal Negative [facility] Comment on above: Performed By: #### L URIN ####[place] [address] pH Test strip (U) 6.0 [pH] Normal 5.0-8.0 [facility] Comment on above: Performed By: #### L URIN ####[facility] [place], [place] [address] Protein Urine Negative Normal Negative [facility] Comment on above: Performed By: #### L URIN ####[facility] [place], [place] [address] RBC LM.HPF #/area (Urine sed) 13-20 Abnormal 0-3 [facility] Comment on above: Performed By: #### L URIN ####[address] [address] Specific [place], Ur 1.025 Normal 1.005-1.030 [facility] Comment on above: Performed By: #### L URIN ####[place] [address] Urobilinogen,Ur 0.2 EU/dL Normal 0.0-1.0 [facility] Comment on above: Performed By: #### L URIN ####[address] [address] WBC LM.HPF #/area (Urine sed) 0-2 Normal 0-5 [facility] Comment on above: Performed By: #### L URIN ####[place] [address] Vital Signs Date Time Vital Sign Value Performing Clinician Facility 11-28-2024 19:14-0400 Body temperature 97.8 [degF] [facility] 11-28-2024 19:14-0400 Diastolic blood pressure 94 mm[Hg] [facility] 11-28-2024 19:14-0400 Heart rate 75 /min [facility] 11-28-2024 19:14-0400 Respiratory rate 17 /min [facility] 11-28-2024 19:14-0400 SaO2% (BldA) [Mass fraction] 97 % [facility] 11-28-2024 19:14-0400 Systolic blood pressure 149 mm[Hg] [facility] 11-28-2024 18:47-0400 Body height 177.8 cm [facility] 11-28-2024 18:47-0400 Body mass index (BMI) [Ratio] 30.4 kg/m2 [facility] 11-28-2024 18:47-0400 Body weight 96.16 kg [facility] 11-14-2024 19:48-0400 Body height 177.8 cm [facility] 11-14-2024 19:48-0400 Body mass index (BMI) [Ratio] 31.1 kg/m2 [facility] 11-14-2024 19:48-0400 Body temperature 98.3 [degF] [facility] 11-14-2024 19:48-0400 Body weight 98.38 kg [facility] 11-14-2024 19:48-0400 Diastolic blood pressure 89 mm[Hg] [facility] 11-14-2024 19:48-0400 Heart rate 79 /min [facility] 11-14-2024 19:48-0400 Respiratory rate 16 /min [facility] 11-14-2024 19:48-0400 SaO2% (BldA) [Mass fraction] 98 % [facility] 11-14-2024 19:48-0400 Systolic blood pressure 165 mm[Hg] [facility] 08-09-2024 11:53-0500 Body temperature 97.9 [degF] [facility] 08-09-2024 11:53-0500 Diastolic blood pressure 86 mm[Hg] [facility] 08-09-2024 11:53-0500 Heart rate 89 /min [facility] 08-09-2024 11:53-0500 Respiratory rate 16 /min [facility] 08-09-2024 11:53-0500 SaO2% (BldA) [Mass fraction] 98 % [facility] 08-09-2024 11:53-0500 Systolic blood pressure 167 mm[Hg] [facility] 08-09-2024 09:02-0500 Body mass index (BMI) [Ratio] 30.6 kg/m2 [facility] 08-09-2024 09:02-0500 Body weight 96.88 kg [facility] 07-24-2023 09:52-0500 Body height 177.8 cm BETSY GUZMÁN MD [facility] 07-24-2023 09:52-0500 Body temperature 98.42 [degF] BETSY GUZMÁN MD [facility] 07-24-2023 09:52-0500 Body weight 84.1 kg BETSY GUZMÁN MD [facility] 07-24-2023 09:52-0500 Diastolic Blood Pressure Non-Invasive 89 mm[Hg] BETSY GUZMÁN MD [facility] 07-24-2023 09:52-0500 Heart rate 64 /min BETSY GUZMÁN MD [facility] 07-24-2023 09:52-0500 Systolic Blood Pressure Non-Invasive 181 mm[Hg] BETSY GUZMÁN MD [facility] 02-01-2023 13:09-0400 Body temperature 98.42 [degF] DR LANRE BANGURA MD [facility] 02-01-2023 13:09-0400 Body weight 82.[address] LANRE BANGURA MD [facility] 02-01-2023 13:09-0400 Diastolic Blood Pressure Non-Invasive [address] LANRE BANGURA MD [facility] 02-01-2023 13:09-0400 Heart rate 56 /min DR LANRE BANGURA MD [facility] 02-01-2023 13:090400 Respiratory rate 16 /min DR LANRE BANGURA MD [facility] 02-01-2023 13:090400 Systolic Blood Pressure Non-Invasive [address] LANRE BANGURA MD [facility] Encounters Encounter Date Encounter Type Care Provider Facility Start: 11-28-2024 End: 11-28-2024 Emergency department patient visit [facility] -Emergency Department Work Phone: Start: 11-14-2024 End: 11-14-2024 [facility] Start: 10-04-2024 Encounter for other preprocedural examination Tanya [facility] Start: 09-18-2024 End: 09-18-2024 Patient encounter procedure Tanya Jones PA -Laboratory Work Phone: Start: 09-18-2024 End: [facility] Start: 08-09-2024 End: 08-09-2024 Emergency department patient visit Dr. Talat Hayden DO -Emergency Department Work Phone: Start: 10-31-2023 End: 10-31-2023 Emergency department patient visit [facility] Facility:[facility] Start: 07-24-2023 End: 07-24-2023 Emergency department patient visit BETSY GUZMÁN MD Facility:B Start: 07-24-2023 End: 07-24-2023 Emergency department patient visit BETSY GUZMÁN MD [facility] Start: 02-10-2023 End: 02-10-2023 Emergency department patient visit [facility] Facility:[facility] Start: 02-01-2023 End: 02-01-2023 Emergency department patient visit [facility] Facility:B Start: 02-01-2023 End: 02-01-2023 Emergency department patient visit DR LANRE BANGURA MD [facility] Start: 07-08-2022 End: 07-08-2022 Emergency department patient visit LOLY LINDQUIST Facility:[facility] Procedures Date Procedure Procedure Detail Performing Clinician Start: 08-09-2024 CT of abdomen and pe lvis without contrast [facility] Start: 10-22-2019 Follow-up visit Start: 09-19-2019 Echocardiography Plan of Treatment Date Care Activity Detail Author Start: 11-28-2024 [facility] Start: 11-14-2024 [facility] Start: 08-09-2024 [facility] Patient Education [facility] Work Phone: Patient referral [facility] Work Phone: Payers Date Payer Category Payer Self-pay 2023 Unknown [id number] 2023 Unknown [id number] 2019 Unknown [id number] 2016 Unknown [id number] 2012 Unknown [employer] [id number] 1955 Unknown [id number] [id number] [id number] 1955 Unknown [id number] [id number] Medicare MEDICARE A [place]H [id number] Unknown [id number] 2.16.8 [id number] Unknown [id number] 2.16.8 [id number] Unknown [id number] 2.16.8 [id number] Unknown [id number] 2.16.8 [id number] Social History Date Type Detail Facility Start: 11-14-2024 End: 11-28-2024 Tobacco smoking status Never smoked tobacco (finding) [facility] Sex Assigned At Sex [facility] Start: 11-14-2024 End: 11-28-2024 Sex Male (finding) [facility] Start: 1955 Sex Assigned At Male [facility] Functional Status Date Assessment Result Facility 07-24-2023 Functional Status Assistive Device None A [facility] 02-01-2023 Functional Status Standard Safet y ID band on, Call device within reach, Bed in low position, Wheels locked [facility] Mental Status Date Assessment Result Facility 07-24-2023 Mental Status Orientation Oriented x 4 [facility] 02-01-2023 Mental Status Orientation Oriented x 4 [facility] 02-01-2023 Mental Status [facility] Clinical Notes 02-01-2023 to 07-24-2023 Note Date & Type Note Facility 07-24-2023 Hospital Discharge instructions Patient Education 07/24/2023 10:46:33 Shoulder Contusion Shoulder Contusion You have a shoulder injury called a contusion. This causes pain, swelling, and sometimes bruising on the skin. You don t have any broken bones. This injury will take from a few days to several weeks to heal, depending on how severe it is. Moderate to severe shoulder contusions are treated with a sling or shoulder immobilizer. Minor contusions can be treated without any special support. Home care Follow these tips when caring for yourself at home: If you were given a sling to use, leave it in place for the time advised by your healthcare provider. If you aren t sure how long to wear it, ask for advice. If the sling becomes loose, adjust it so that your forearm is level with the ground. Your shoulder should feel well supported. Put an ice pack on the injured area for 20 minutes every 1 to 2 hours the first day. You can make your own ice pack by putting ice cubes in a plastic bag. Wrap the bag in a thin towel. Continue with ice packs 3 to 4 times a day for the next 2 days. Then use the pack as needed to ease pain and swelling. You may use acetaminophen or ibuprofen to control pain, unless another pain medicine was prescribed. If you have chronic liver or kidney disease, talk with your healthcare provider before using these medicines. Also talk with your provider if you ve ever had a stomach ulcer or GI bleeding. Shoulder and elbow joints become stiff if left in a sling for too long. You should start range of motion exercises about 7 to 10 days after the injury. Talk with your provider to find out what type of exercises to do and how soon to start. Unless your provider told you otherwise, you can take the sling off to shower or bathe. Follow-up care Follow up with your healthcare provider if you don t start getting better in the next 5 days. When to seek medical advice Call your healthcare provider right away if any of these occur: Pain or swelling gets worse or continues for more than a few days Large amount of bruising on your shoulder or upper arm Your hand or fingers become cold, blue, numb, or tingly Difficulty moving your hand or fingers Weakness in your hand or fingers Your shoulder becomes stiff Your shoulder feels like it is popping out You aren t able to do your daily activities [id number] [employer]. [address] [place] [address]. All rights reserved. This information is not intended as a substitute for professional medical care. Always follow your healthcare professional's instructions. 07/24/2023 10:46:33 Hand Contusion Hand Contusion You have a contusion. This is also called a bruise. There is swelling and some bleeding under the skin, but no broken bones. This injury generally takes a few days to a few weeks to heal. During that time, the bruise will typically change in color from reddish, to purple-blue, to greenish-yellow, then to yellow-brown. Home care Elevate the hand to reduce pain and swelling. As much as possible, sit or lie down with the hand raised about the level of your heart. This is especially important during the first 48 hours. Ice the hand to help reduce pain and swelling. Wrap a cold source (ice pack or ice cubes in a plastic bag) in a thin towel. Apply to the bruised area for 20 minutes every 1 to 2 hours the first day. Continue this 3 to 4 times a day until the pain and swelling goes away. Unless another medicine was prescribed, you can take acetaminophen, ibuprofen, or naproxen to control pain. (If you have chronic liver or kidney disease or ever had a stomach ulcer or gastrointestinal bleeding, talk with your doctor before using these medicines.) Follow up Follow up with your healthcare provider or our staff as advised. Call if you are not improving within 1 to 2 weeks. When to seek medical advice Call your healthcare provider right away if you have any of the following: Increased pain or swelling Arm becomes cold, blue, numb or tingly Signs of infection: Warmth, drainage, or increased redness or pain around the bruise Inability to move the injured hand Frequent bruising for unknown reasons [id number] [employer] [address] [place] [address]. All rights reserved. This information is not intended as a substitute for professional medical care. Always follow your healthcare professional's instructions. Follow Up Care 07/24/2023 09:46:14 With:TAMERA PHILIP Address: [address] [place] [address] [place] [address]- When:2-4 days With:[place], [facility] Address: [address] [place] [address]- When:2-4 days [facility] 07-24-2023 Note Discharge Instructions Thank you for allowing [facility] to assist you with your healthcare needs. The following is important discharge information regarding your hospital visit. Diagnosis from Today's Visit Arm pain-swelling Contusion of hand Contusion, shoulder area Shoulder pain-swelling What to Do Next Instructions from Your Care Team No qualifying data available. Post Acute Orders No qualifying data available. You Need to Schedule the Following Appointments Follow Up with TAMERA PHILIP When Within 2-4 days Where: [address] [place] [address] [place] [address]- Follow Up with [place], CLINIC When Within 2-4 days Where: [address] [place] [address]- Allergies NKA Medications Please ask your primary doctor or pharmacist before taking any other medication not listed, including over the counter drugs, herbal medications, vitamins and or supplements as they may interact with your home medications. What How Much When Instructions Last Dose Unchanged acetaminophen-hydrocodone (acetaminophen-hydrocodone 325 mg-5 mg oral tablet) 1 tab(s) by mouth Every 6 hours as needed for for pain Unchanged atorvastatin (atorvastatin 20 mg oral tablet) 1 tab(s) by mouth Once a day Unchanged ibuprofen (ibuprofen 800 mg oral tablet) 1 tab(s) by mouth Three (3) times a day as needed for as needed for pain Unchanged lisinopril (lisinopril 10 mg oral tablet) 1 tab(s) by mouth Once a day Unchanged rivaroxaban (Xarelto 20 mg oral tablet) 1 tab(s) by mouth Daily at bedtime Please take this list to your next doctor s visit. Bring all medications you take, including over the counter medications, herbals and other supplements with you to your doctor s visit. Patients and families are reminded to discard old lists and to update any records with all medication providers or retail pharmacies. Education Materials Shoulder Contusion You have a shoulder injury called a contusion. This causes pain, swelling, and sometimes bruising on the skin. You don t have any broken bones. This injury will take from a few days to several weeks to heal, depending on how severe it is. Moderate to severe shoulder contusions are treated with a sling or shoulder immobilizer. Minor contusions can be treated without any special support. Home care Follow these tips when caring for yourself at home: If you were given a sling to use, leave it in place for the time advised by your healthcare provider. If you aren t sure how long to wear it, ask for advice. If the sling becomes loose, adjust it so that your forearm is level with the ground. Your shoulder should feel well supported. Put an ice pack on the injured area for 20 minutes every 1 to 2 hours the first day. You can make your own ice pack by putting ice cubes in a plastic bag. Wrap the bag in a thin towel. Continue with ice packs 3 to 4 times a day for the next 2 days. Then use the pack as needed to ease pain and swelling. You may use acetaminophen or ibuprofen to control pain, unless another pain medicine was prescribed. If you have chronic liver or kidney disease, talk with your healthcare provider before using these medicines. Also talk with your provider if you ve ever had a stomach ulcer or GI bleeding. Shoulder and elbow joints become stiff if left in a sling for too long. You should start range of motion exercises about 7 to 10 days after the injury. Talk with your provider to find out what type of exercises to do and how soon to start. Unless your provider told you otherwise, you can take the sling off to shower or bathe. Follow-up care Follow up with your healthcare provider if you don t start getting better in the next 5 days. When to seek medical advice Call your healthcare provider right away if any of these occur: Pain or swelling gets worse or continues for more than a few days Large amount of bruising on your shoulder or upper arm Your hand or fingers become cold, blue, numb, or tingly Difficulty moving your hand or fingers Weakness in your hand or fingers Your shoulder becomes stiff Your shoulder feels like it is popping out You aren t able to do your daily activities [id number] [employer]. [address] [place] [address]. All rights reserved. This information is not intended as a substitute for professional medical care. Always follow your healthcare professional's instructions. Hand Contusion You have a contusion. This is also called a bruise. There is swelling and some bleeding under the skin, but no broken bones. This injury generally takes a few days to a few weeks to heal. During that time, the bruise will typically change in color from reddish, to purple-blue, to greenish-yellow, then to yellow-brown. Home care Elevate the hand to reduce pain and swelling. As much as possible, sit or lie down with the hand raised about the level of your heart. This is especially important during the first 48 hours. Ice the hand to help reduce pain and swelling. Wrap a cold source (ice pack or ice cubes in a plastic bag) in a thin towel. Apply to the bruised area for 20 minutes every 1 to 2 hours the first day. Continue this 3 to 4 times a day until the pain and swelling goes away. Unless another medicine was prescribed, you can take acetaminophen, ibuprofen, or naproxen to control pain. (If you have chronic liver or kidney disease or ever had a stomach ulcer or gastrointestinal bleeding, talk with your doctor before using these medicines.) Follow up Follow up with your healthcare provider or our staff as advised. Call if you are not improving within 1 to 2 weeks. When to seek medical advice Call your healthcare provider right away if you have any of the following: Increased pain or swelling Arm becomes cold, blue, numb or tingly Signs of infection: Warmth, drainage, or increased redness or pain around the bruise Inability to move the injured hand Frequent bruising for unknown reasons 7676-1192 [employer]. [address] [place] [address]. All rights reserved. This information is not intended as a substitute for professional medical care. Always follow your healthcare professional's instructions. Additional Information VACCINATE! IT SAVES LIVES! Members of the community who have not yet received the COVID-19 vaccine and would like to receive it can visit one of [facility] vaccine clinics. There are many vaccine clinic locations within the [facility]. For locations and available times, please visit [email or web address] It is important to note that some COVID mobile vaccine clinics are held outdoors and may be canceled in rainy or stormy conditions. To learn more about pediatric vaccinations (ages 5-11), we invite you to visit the [facility] webpage. https://www.[facility].org/pag es/3217-Iwykj-Idhjaqkfzhe-Frequent ce-Wnkjl-Qpboonczj.html To learn more about the COVID-19 vaccine, we invite you to visit the CDC website for a list of frequently asked questions. https://www.cdc.gov/coronavirus/ 19-ncov/vaccines/faq.html [facility] Patient Portal Access Instructions: Stay connected with your healthcare team and access your personal medical information anytime with the [facility] Patient Portal. If you would like a full copy of your medical records please contact the [facility] Medical Records Department Saturday through Saturday between 8a.m. and 4:30p.m. Please follow the directions below to access the portal: 1.Access the email account you provided upon registration to the hospital.2.Look for an invitation email from [facility].3.Open the email and access the invitation link: Accept Invitation to [facility].Fill in the required molina to create your account. Sign into [email or web address] with your username and password that you created in the above steps to stay up to date. You can then view a summary of results, a summary of your visits, and the ability to download your summaries to your computer or send the information securely to a physician. Remember that your healthcare information is confidential, so carefully consider who you will allow to register on the [facility] Patient Portal for access to your information. You can also access the [facility] Patient Portal on the [employer] brady. Simply click on Health Records under Health Data and then click on the [employer] logo. HOW TO SAFELY DISPOSE OF PRESCRIPTION MEDICATIONS Please use one of the following methods to safely dispose of your unused medications. 1.Use a drug disposal kit: the drug disposal pouch allows you to safely discard your old and unused drugs. Ask your nurse to give you one when you are discharged.2.Visit a local take-back location: Many local pharmacies and police departments have programs that collect old and unwanted prescription drugs. Call your local pharmacy or go to http://silkfred.[employer]/6D0Cb6k to find one close to you.3.Make use of household items: Use cat litter or old coffee grounds to dispose medications if other options are not available. Mix your drugs with these household products, seal them in an airtight container and throw it into the garbage. Call [facility]: [phone] to be sure your drugs can be disposed of in this way. Some medicines may require a different approach.4.Never flush your medications down the toilet. IF YOU HAVE BEEN PRESCRIBED AN OPIOIDS FOR PAIN If you have been prescribed an opioid (such as hydrocodone, oxycodone or morphine), it is critical to understand the possible side effects and risks of opioid pain medications. Even when taken as directed, opioids can have several side effects including: Tolerance, meaning you might need to take more of a medication for the same pain relief. Nausea, vomiting and/or constipation. Sleepiness, dizziness, dry mouth, confusion, depression or itching. Physical dependence, meaning you have withdrawal symptoms when a medication is stopped ? this can develop within a few days. KNOW YOUR RESPONSIBILITIES It is important to know exactly how much and how often to take the opioid pain medications you are prescribed. Never take opioids in higher amounts or more often than prescribed. Do not combine opioids with alcohol or other drugs that cause drowsiness, such as benzodiazepines, also known as benzos, including diazepam and alprazolam, muscle relaxants or sleep aids. Never sell or share prescription opioids. This is illegal. Store opioids in a secure place and out of reach of others (including children, family, friends and visitors). The last page(s) of this document has been signed and retained as a CHART COPY Signatures Patient Education Materials Shoulder Contusion Hand Contusion Medication Leaflets My discharge plan and instructions have been reviewed and explained to me and IJAMES WILLI M understand my current condition and have read and understand these discharge instructions. I have received a written copy of the plan/instructions. If I have questions, I am aware that I should contact my doctor. Patient/Laster Hand Signature: Date/Time: Relationship to Patient: ___ Witness Name/Signature: Date/Time: [facility] 07-24-2023 Note ORIGINAL EXAMINATION: THREE XRAY VIEWS OF THE RIGHT HAND07/24/2023 10:16 am COMPARISON: None HISTORY: ORDERING SYSTEM PROVIDED HISTORY: Reason for Exam: pain, FINDINGS: No acute fracture, dislocation, bony lytic process is seen in the visualized bones and joints. Moderate degenerative changes in multiple metacarpophalangeal joints, proximal interphalangeal and distal interphalangeal joints. No significant erosive type of arthritis or soft tissue calcification. Carpus intact. no radiopaque foreign body. IMPRESSION: No acute fracture or dislocation. Mild degenerative changes in multiple small joints of hands. I have personally reviewed the images of this examination and agree with the resident's findings and interpretation. Interpreted by: Raúl Hines MD Preliminary Report By: Dago Winters Electronically signed By Raúl Hines MD Dictated Date: 07/24/2023 10:30:23 AM Prelim Date: 07/24/2023 10:38:15 AM Sign Date: 07/24/2023 10:38:15 AM Ordering Provider: [facility] 07-24-2023 Note ORIGINAL EXAMINATION: Four XRAY VIEWS OF THE RIGHT JVIFYNHM37/6/2023 10:15 am COMPARISON: X-ray: 02/01/2023 HISTORY: ORDERING SYSTEM PROVIDED HISTORY: Reason for Exam: pain FINDINGS: No fracture or dislocation is identified. There are no abnormal periarticular calcifications. Glenohumeral joint appears unremarkable. Mild to moderate degenerative changes are present at the acromioclavicular joint. Widening of acromioclavicular joint space with mild elevation and tapering of distal clavicle, similar appearance as before, likely postoperative appearance. The included thoracic structures are unremarkable. IMPRESSION: No acute fracture or dislocation. 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 I have personally reviewed the images of this examination and agree with the resident's findings and interpretation. Interpreted by: Raúl Hines MD Preliminary Report By: Dago Winters Electronically signed By Raúl Hines MD Dictated Date: 07/24/2023 10:26:54 AM Prelim Date: 07/24/2023 10:38:01 AM Sign Date: 07/24/2023 10:38:01 AM Ordering Provider: BETSY [facility] 02-01-2023 Hospital Discharge instructions Patient Education 02/01/2023 14:32:16 CONTUSION, Upper Extremity Contusion:Upper Extremity You have a contusion of your upper extremity (arm, wrist, hand or fingers). This causes local pain, swelling and sometimes bruising. There are no broken bones. This injury takes a few days to a few weeks to heal. A sling may be provided for comfort and arm support. Home Care: 1) Keep your arm elevated to reduce pain and swelling. This is very important during the first 48 hours. 2) Apply an ice pack (ice cubes in a plastic bag, wrapped in a towel) over the injured area for 20 minutes every 1-2 hours the first day for pain relief. Continue this 3-4 times a day until the pain and swelling goes away. 3) You may use acetaminophen (Tylenol) or ibuprofen (Motrin, Advil) to control pain, unless another pain medicine was prescribed. [ NOTE : If you have chronic liver or kidney disease or ever had a stomach ulcer or GI bleeding, talk with your doctor before using these medicines.] 4) If a sling was provided, you may remove it to shower or bathe. Do not wear it for more than one week or it may cause joint stiffness. Follow Up with your doctor or this facility if you are not starting to improve within the next THREE days. [NOTE: If X-rays were taken, they will be reviewed by a radiologist. You will be notified of any new findings that may affect your care.] Get Prompt Medical Attention if any of the following occur: -- Pain or swelling increases -- Redness, warmth or drainage -- Hand or fingers becomes cold, blue, numb or tingly [id number] [employer]. [address] [place] [address]. All rights reserved. This information is not intended as a substitute for professional medical care. Always follow your healthcare professional's instructions. Follow Up Care 02/01/2023 13:10:21 With:[facility] Address: When:2-4 days With:[place] Address: [address] [place] [phone]- When:2-4 days [facility] 02-01-2023 Emergency department Discharge summary Discharge Instructions Thank you for allowing [facility] to assist you with your healthcare needs. The following is important discharge information regarding your hospital visit. Diagnosis from Today's Visit Contusion of right shoulder Fall What to Do Next Instructions from Your Care Team No qualifying data available. Post Acute Orders No qualifying data available. You Need to Schedule the Following Appointments Follow Up with [facility] When Within 2-4 days Where: Follow Up with [place] [facility] When Within 2-4 days Where: [address] [place] [id number]- Allergies NKA Medications Please ask your primary doctor or pharmacist before taking any other medication not listed, including over the counter drugs, herbal medications, vitamins and or supplements as they may interact with your home medications. What How Much When Instructions Last Dose Unchanged acetaminophen-hydrocodone (acetaminophen-hydrocodone 325 mg-5 mg oral tablet) 1 tab(s) by mouth Every 6 hours as needed for for pain Unchanged atorvastatin (atorvastatin 20 mg oral tablet) 1 tab(s) by mouth Once a day Unchanged ibuprofen (ibuprofen 800 mg oral tablet) 1 tab(s) by mouth Three (3) times a day as needed for as needed for pain Unchanged lisinopril (lisinopril 10 mg oral tablet) 1 tab(s) by mouth Once a day Unchanged rivaroxaban (Xarelto 20 mg oral tablet) 1 tab(s) by mouth Daily at bedtime Please take this list to your next doctor s visit. Bring all medications you take, including over the counter medications, herbals and other supplements with you to your doctor s visit. Patients and families are reminded to discard old lists and to update any records with all medication providers or retail pharmacies. Education Materials Contusion:Upper Extremity You have a contusion of your upper extremity (arm, wrist, hand or fingers). This causes local pain, swelling and sometimes bruising. There are no broken bones. This injury takes a few days to a few weeks to heal. A sling may be provided for comfort and arm support. Home Care: 1) Keep your arm elevated to reduce pain and swelling. This is very important during the first 48 hours. 2) Apply an ice pack (ice cubes in a plastic bag, wrapped in a towel) over the injured area for 20 minutes every 1-2 hours the first day for pain relief. Continue this 3-4 times a day until the pain and swelling goes away. 3) You may use acetaminophen (Tylenol) or ibuprofen (Motrin, Advil) to control pain, unless another pain medicine was prescribed. [ NOTE : If you have chronic liver or kidney disease or ever had a stomach ulcer or GI bleeding, talk with your doctor before using these medicines.] 4) If a sling was provided, you may remove it to shower or bathe. Do not wear it for more than one week or it may cause joint stiffness. Follow Up with your doctor or this facility if you are not starting to improve within the next THREE days. [NOTE: If X-rays were taken, they will be reviewed by a radiologist. You will be notified of any new findings that may affect your care.] Get Prompt Medical Attention if any of the following occur: -- Pain or swelling increases -- Redness, warmth or drainage -- Hand or fingers becomes cold, blue, numb or tingly [id number] [employer] [address] [place] [address]. All rights reserved. This information is not intended as a substitute for professional medical care. Always follow your healthcare professional's instructions. Additional Information VACCINATE! IT SAVES LIVES! Members of the community who have not yet received the COVID-19 vaccine and would like to receive it can visit one of [facility] vaccine clinics. There are many vaccine clinic locations within the [facility]. For locations and available times, please visit [email or web address] It is important to note that some COVID mobile vaccine clinics are held outdoors and may be canceled in rainy or stormy conditions. To learn more about pediatric vaccinations (ages 5-11), we invite you to visit the [facility] webpage. https://www.[facility].org/pag es/7748-Mztvl-Fqdkmuojuhc-Frequent xf-Etbtl-Htglibwxl.html To learn more about the COVID-19 vaccine, we invite you to visit the CDC website for a list of frequently asked questions. https://www.cdc.gov/coronavirus/20 19-ncov/vaccines/faq.html [facility] Patient Portal Access Instructions: Stay connected with your healthcare team and access your personal medical information anytime with the [facility] Patient Portal. If you would like a full copy of your medical records please contact the [facility] Medical Records Department Saturday through Saturday between 8a.m. and 4:30p.m. Please follow the directions below to access the portal: 1.Access the email account you provided upon registration to the [facility].2.Look for an invitation email from [facility].3.Open the email and access the invitation link: Accept Invitation to [facility]4.Fill in the required molina to create your account. Sign into [email or web address] with your username and password that you created in the above steps to stay up to date. You can then view a summary of results, a summary of your visits, and the ability to download your summaries to your computer or send the information securely to a physician. Remember that your healthcare information is confidential, so carefully consider who you will allow to register on the [facility] Patient Portal for access to your information. You can also access the [facility] Patient Portal on the [employer]. Simply click on Health Records under Health Data and then click on the [employer]os[employer] logo. HOW TO SAFELY DISPOSE OF PRESCRIPTION MEDICATIONS Please use one of the following methods to safely dispose of your unused medications. 1.Use a drug disposal kit: the drug disposal pouch allows you to safely discard your old and unused drugs. Ask your nurse to give you one when you are discharged.2.Visit a local take-back location: Many local pharmacies and police departments have programs that collect old and unwanted prescription drugs. Call your local pharmacy or go to http://silkfred.[employer]/1L0Te7d to find one close to you.3.Make use of household items: Use cat litter or old coffee grounds to dispose medications if other options are not available. Mix your drugs with these household products, seal them in an airtight container and throw it into the garbage. Call [facility]: [phone] to be sure your drugs can be disposed of in this way. Some medicines may require a different approach.4.Never flush your medications down the toilet. IF YOU HAVE BEEN PRESCRIBED AN OPIOIDS FOR PAIN If you have been prescribed an opioid (such as hydrocodone, oxycodone or morphine), it is critical to understand the possible side effects and risks of opioid pain medications. Even when taken as directed, opioids can have several side effects including: Tolerance, meaning you might need to take more of a medication for the same pain relief. Nausea, vomiting and/or constipation. Sleepiness, dizziness, dry mouth, confusion, depression or itching. Physical dependence, meaning you have withdrawal symptoms when a medication is stopped ? this can develop within a few days. KNOW YOUR RESPONSIBILITIES It is important to know exactly how much and how often to take the opioid pain medications you are prescribed. Never take opioids in higher amounts or more often than prescribed. Do not combine opioids with alcohol or other drugs that cause drowsiness, such as benzodiazepines, also known as benzos, including diazepam and alprazolam, muscle relaxants or sleep aids. Never sell or share prescription opioids. This is illegal. Store opioids in a secure place and out of reach of others (including children, family, friends and visitors). The last page(s) of this document has been signed and retained as a CHART COPY Signatures Patient Education Materials CONTUSION, Upper Extremity Medication Leaflets My discharge plan and instructions have been reviewed and explained to me and I,WILLI RAMIREZ understand my current condition and have read and understand these discharge instructions. I have received a written copy of the plan/instructions. If I have questions, I am aware that I should contact my doctor. Patient/Laster Hand Signature: Date/Time: Relationship to Patient: ___ Witness Name/Signature: Date/Time: [facility] 02-01-2023 Note ORIGINAL EXAMINATION: TWO XRAY VIEWS OF THE RIGHT SHOULDER02/01/2023 1:55 pm COMPARISON: Chest radiograph 12/11/2015. HISTORY: ORDERING SYSTEM PROVIDED HISTORY: Reason for Exam: Pain. Patient fell at work today, right shoulder pain. FINDINGS: No fracture or dislocation of the shoulder is seen. The coracoclavicular and acromioclavicular relationships are maintained. Mild acromioclavicular degenerative changes. The humerus appears appropriately seated within the glenoid. The included thoracic structures are unremarkable. IMPRESSION: No acute osseous abnormality. I have personally reviewed the images of this examination and agree with the resident's findings and interpretation. Interpreted by: Joni Schmitz MD Preliminary Report By: Ronnie Rodriguez Electronically signed By Joni Schmitz MD Dictated Date: 02/01/2023 1:59:25 PM Prelim Date: 02/01/2023 2:22:30 PM Sign Date: 02/01/2023 2:22:30 PM [facility] Note ORIGINAL EXAMINATION: TWO XRAY VIEWS OF THE RIGHT SHOULDER02/01/2023 1:55 pm COMPARISON: Chest radiograph 12/11/2015. HISTORY: ORDERING SYSTEM PROVIDED HISTORY: Reason for Exam: Pain. Patient fell at work today, right shoulder pain. FINDINGS: No fracture or dislocation of the shoulder is seen. The coracoclavicular and acromioclavicular relationships are maintained. Mild acromioclavicular degenerative changes. The humerus appears appropriately seated within the glenoid. The included thoracic structures are unremarkable. IMPRESSION: No acute osseous abnormality. I have personally reviewed the images of this examination and agree with the resident's findings and interpretation. Interpreted by: Joni Schmitz MD Preliminary Report By: Ronnie Rodriguez Electronically signed By Joni Schmitz MD Dictated Date: 02/01/2023 1:59:25 PM Prelim Date: 02/01/2023 2:22:30 PM Sign Date: 02/01/2023 2:22:30 PM [facility] No data available for this section [facility] Evaluation note No assessment inform ation available [facility] Work Phone: Hospital Discharge instructions Additional Instructions Right ear infection of the eardrum. Otitis media. Tylenol for pain. The amoxicillin twice a day for 10 days. Follow-up with your doctor return if not improving or getting worse. [facility] Work Phone: Hospital Discharge instructions Additional Instructions Continue the antibiotic drops as prescribed and call the ENT doctor for an appointment for further evaluation. [facility] Work Phone: Reason for referral (narrative) No reason for referral information available [facility] Work Phone: Summary Purpose Family History No Family History Records FoundNo Family History Records FoundNo Family History Records FoundNo Family History Records Found No data available for this section No Family History Records FoundNo Family History Records FoundNo Family History Records Found Advance Directives No Advanced Directives Records Found Advance Directive Response Recorded Date/ Time Living Will No August 09 10:37am Do you have a Healthcare Power of Platform Software Engineer? No August 09, 2024 10:37am Living Will No November 14, 2024 8:13pm Do you have a Healthcare Power of Platform Software Engineer? No November 14, 2024 8:13pm Advance Directive Response Recorded Date/ Time Living Will No August 09 10:37am Do you have a Healthcare Power of Platform Software Engineer? No August 09, 2024 10:37am Living Will No November 14, 2024 8:13pm Do you have a Healthcare Power of Platform Software Engineer? No November 14, 2024 8:13pm Living Will No November 28, 2024 7:14pm Do you have a Healthcare Power of Platform Software Engineer? No November 28, 2024 7:14pm Hospital Course Note Send Summary: Discharge Summ alyssa Providers: Provider RoleProvider Name AttendingDuKetan burnett Note Recipients: Discharge: Summary: Admission Date: .18-Sep-2019 22:53:00 Discharge Date: 20-Sep-2019 Attending Physician at Discharge: Ketan Fraga Admission Reason: Stroke(1) Final Discharge Diagnoses: TIA Procedures: none Condition at Discharge: Satisfactory Disposition at Discharge: .Home Vital Signs: T [id number] [id number]% Date/Time09/20 11:3422 11:342/2 11:342/2 11:342/2 11:34 Range(36.2C - 36.7C ) (46 - 52 ) (18 - 20 ) (142 - 155 )/ (71 - 85 ) (96% - 97% ) Physical Exam: General: resting in bed, in NAD, cooperative CV: RRR, s1 and s2 normal, no MRG Resp: CTAB Neuro: AAOx4, 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 Vision is blurry on right eye but no VF deficit Hospital Course: Mr. Ramirez is a 63 y/o RH white man with PMHx significant for HTN and chronic right ear tinnitus transferred from [place] for stroke work up, he presented to [place] ED on the evening for transien (more content not included)... Chief Complaint and Reason for Visit Chief Complaint Admit Date flank August 09, 2024 9:02am RIGHT EAR November 14, 2024 7:4 7pm Chief Complaint Admit Date flank August 09, 2024 9:02am RIGHT EAR November 14, 2024 7:4 7pm EAR November 28, 2024 6:4 6pm Additional Source Comments (unrecognized sect ion and content) No Status Records FoundNo Status Records FoundNo Status Records FoundNo Status Records FoundNo Status Records FoundNo Status Records FoundNo Status Records Found INFORMATION SOURCE (unrecogn ized section and content) DATE CREATED AUTHOR 07/28/2018 [facility] DATE CREATED AUTHOR AUTHOR'S ORGANIZ ATION 10/22/2019 [employer] DATE CREATED AUTHOR AUTHOR'S ORGANIZ ATION 11/23/[address] [facility] DATE CREATED AUTHOR AUTHOR'S ORGANIZ ATION 07/10/2022 [facility] DATE CREATED AUTHOR AUTHOR'S ORGANIZ ATION 08/08/2023 [facility] ([place] DATE CREATED AUTHOR AUTHOR'S ORGANIZ ATION 11/03/2023 [facility] DATE CREATED AUTHOR AUTHOR'S ORGANIZ ATION 12/04/2024 [facility] Patient Care team informatio n (unrecognized section and content) Team Status: Active Member Role Status Dates [facility] Primary Care Provider Active Team Status: Inactive Member Role Status Dates [facility] Primary Care Provider Active Start: August 09, 2024 End: August 09, 2024 Dr. Talat Hayden DO Attending Provider Active Start: August 09, 2024 End: August 09, 2024 Dr. Talat Hayden DO Emergency Provider Active Start: August 09, 2024 End: August 09, 2024 Team Status: Inactive Member Role Status Dates [facility] Primary Care Provider Active Start: September 18, 2024 End: September 18, 2024 DAVID Lassiter Attending Provider Active Start : September 18, 2024 End: September 18, 2024 DAVID Lassiter Referring Provider Active Start : September 18, 2024 End: September 18, 2024 Team Status: Inactive Member Role Status Dates [facility] Primary Care Provider Active Start: November 14, 2024 End: November 14, 2024 Dr. Addy Fleming MD Emergency Provider Active S tart: November 14, 2024 End: November 14, 2024 Team Status: Inactive Member Role Status Dates [facility] Primary Care Provider Active Start: November 14, 2024 End: November 14, 2024 Dr. Addy Fleming MD Attending Provider Active S tart: November 14, 2024 End: November 14, 2024 Dr. Addy Fleming MD Emergency Provider Active S tart: November 14, 2024 End: November 14, 2024 Team Status: Inactive Member Role Status Dates [facility] Primary Care Provider Active Start: November 28, 2024 End: November 28, 2024 Dr. Addy Fleming MD Emergency Provider Active S tart: November 28, 2024 End: November 28, 2024 Goals (unrecognized section and content) Goals may be documented in a n alternate section FOR RECORDS PERTAINING TO PATIENTS WHO ARE OR HAVE BEEN ENROLLED IN A CHEMICAL DEPENDENCY/SUBSTANCEABUSE PROGRAM, SOME INFORMATION MAY BE OMITTED. This clinical summary was aggregated from multiple sources. Caution should be exercised in using it in the provision of clinical care. This summary normalizes information from multiple sources, and as a consequence, information in this document may materially change the coding, format and clinical context of patient data. In addition, data may be omitted in some cases. CLINICAL DECISIONS SHOULD BE BASED ON THE PRIMARY CLINICAL RECORDS. [facility] [employer] [facility]. provides no warranty or guarantee of the accuracy or completeness of information in this document.
[2025-03-31 22:39] VITALS: BP 152/88; PULSE 70; RESP 18; TEMP 36.7; O2SAT 97
== END 2025-03-31 22:41 | disposition home or self-care (01) ==
PROVIDERS: Emergency Provider Emergency Medicine; Visit Provider Emergency Medicine
DX: R05.9 Cough, unspecified (principal); I10 Essential (primary) hypertension; Z79.899 Other long term (current) drug therapy; Z79.01 Long term (current) use of anticoagulants; Z20.818 Contact with and (suspected) exposure to other bacterial communicable diseases
CPT/HCPCS: 99282